=== PATIENT | female | born 1960 ===

== ENCOUNTER 2018-03-23 16:03 | Emergency (ER) | payer SELFPAY ==
[2018-03-23 16:04] VITALS: BMI 34.7
[2018-03-23 17:40] LABS: BASO % 0.4 % (0.0-2.0); EOS % 0.5 % (0.0-4.0); HEMOGLOBIN 10.5 g/dL (11.0-16.0); LYMPH # 1.2 K/uL (1.0-4.3); MEAN CELL VOLUME 95.2 fL (81.0-99.0); MEAN CORPUSCULAR HEMOGLOBIN 31.9 pg (27.0-31.0); MEAN CORPUSCULAR HGB CONC 33.5 g/dL (33.0-37.0); MEAN PLATELET VOLUME 9.4 fL (7.2-11.7); MONO # 0.4 K/uL (0.0-0.8); MONO % 11.4 % (0.0-10.0); NEUT # 1.9 K/uL (1.8-7.0); NEUT % 53.7 % (50.0-75.0); NRBC % 0.1 % (0.0-2.0); RBC 3.28 Mil/uL (3.80-5.20); RED CELL DISTRIBUTION WIDTH 13.2 % (11.5-14.5); WHITE BLOOD COUNT 3.6 K/uL (4.8-10.8)
--- NOTE | 2018-03-23 17:46 | RAD ---
Date of service: 03/23/2018 PROCEDURE: CHEST RADIOGRAPH, 1 VIEW HISTORY: chest pain COMPARISON: None available. FINDINGS: LUNGS: Clear. PLEURA: No pneumothorax or pleural fluid seen. CARDIOVASCULAR: No radiographic findings to suggest acute or significant cardiovascular disease. Position/ configuration of pacemaker device: Satisfactory. Venous access catheter in satisfactory position. OSSEOUS STRUCTURES: No significant abnormalities. VISUALIZED UPPER ABDOMEN: Normal. OTHER FINDINGS: None. IMPRESSION: No active pulmonary disease.
[2018-03-23 18:04] LABS: SQUAMOUS EPITHIAL 1 /hpf (0-5); URINE BILIRUBIN NEGATIVE (NEGATIVE); URINE BLOOD NEGATIVE (NEGATIVE); URINE CLARITY Clear (Clear); URINE COLOR Yellow (YELLOW); URINE GLUCOSE (UA) NORMAL (Normal); URINE LEUKOCYTE ESTERASE NEG Leu/uL (Negative); URINE PROTEIN NEGATIVE (NEGATIVE); URINE UROBILINOGEN NORMAL mg/dL (0.2-1.0)
[2018-03-23 18:08] LABS: ALB/GLOB RATIO 1.3 (1.0-2.1); ALBUMIN 3.6 g/dL (3.5-5.0); ALT/SGPT 29 U/L (9-52); AST/SGOT 31 U/L (14-36); BLOOD UREA NITROGEN 19 mg/dL (7-17); CALCIUM 8.6 mg/dl (8.6-10.4); GFR NON-AFRICAN AMERICAN > 60
[2018-03-23 18:39] VITALS: TEMP 98.8
--- NOTE | 2018-03-23 18:40 | CT ---
Date of service: 03/23/2018 PROCEDURE: CT HEAD WITHOUT CONTRAST. HISTORY: r/o ICH - h/o falls and MS COMPARISON: None available. TECHNIQUE: Axial computed tomography images were obtained through the head/brain without intravenous contrast. Coronal and sagittal reconstructed images. Radiation dose: Total exam DLP = 836.05 mGy-cm. This CT exam was performed using one or more of the following dose reduction techniques: Automated exposure control, adjustment of the mA and/or kV according to patient size, and/or use of iterative reconstruction technique. FINDINGS: HEMORRHAGE: No intracranial hemorrhage. BRAIN: No mass effect or edema. Cortical and cerebellar atrophy, periventricular small vessel disease. Additional lacune or infarcts identified right thalamus. Punctate foci of encephalomalacia adjacent to the sylvian fissure on the left and internal capsule on the right. VENTRICLES: Unremarkable. No hydrocephalus. CALVARIUM: Unremarkable. PARANASAL SINUSES: Unremarkable as visualized. No significant inflammatory changes. MASTOID AIR CELLS: Unremarkable as visualized. No inflammatory changes. OTHER FINDINGS: None. IMPRESSION: No acute intracranial abnormalities. No significant findings to account for the clinical presentation.
[2018-03-23 20:18] VITALS: BP 132/56; PULSE 85; RESP 16; O2SAT 97
--- NOTE | 2018-03-23 21:45 | C.PDOC ---
History Of Present Illness 57-year-old female, presents to the emergency department with complaints of fall today and two days ago. Patient has a hx of multiple sclerosis and lower extremity neuropathy. She denies any chest pain, shortness of breath, dizziness , or any other associated symptoms. Patient denies any SI/HI Time Seen by Provider: 03/23/18 16:33 Chief Complaint (Nursing): Weakness/Neurological Deficit History Per: Patient History/Exam Limitations: no limitations Past Medical History Reviewed: Historical Data, Nursing Documentation, Vital Signs Vital Signs: Last Vital Signs Temp 98.8 F 03/23/18 18:38 Pulse 85 03/23/18 20:16 Resp 16 03/23/18 20:16 BP 132/56 L 03/23/18 20:16 Pulse Ox 97 03/23/18 21:45 - Medical History PMH: Anemia, Anxiety, Arthritis, Back Problems, Bipolar Disorder, Cardia Arrhythmia, Depression, Fibromyalgia, Fractures (L RIB), HTN, Hypercholesterolemia, Kidney Stones, Migraine, Multiple Sclerosis Surgical History: Pacemaker - [facility] Procedures BATHING/SHOWERING TECHNIQUES TREATMENT (01/31/18) DRESSING TECHNIQUES TREATMENT (01/31/18) GAIT TRAINING/AMBULAT TREATMENT USING ASSIST EQUIPMENT (01/31/18) GROOMING/PERSONAL HYGIENE TREATMENT (01/31/18) HOME MANAGEMENT TREATMENT (01/31/18) INJECT/INFUSE NEC (02/14/14) THERAPEUTIC EXERCISE TREATMENT OF MUSCULOSK WHOLE (01/31/18) Family History: States: No Known Family Hx - Social History Hx Alcohol Use: No Hx Substance Use: No - Immunization History Hx Tetanus Toxoid Vaccination: No Physical Exam - Physical Exam Appears: Non-toxic, No Acute Distress Skin: Normal Color, Warm, Dry, No Rash Head: Atraumatic Eye(s): bilateral: Normal Inspection Nose: Normal Oral Mucosa: Moist Lips: Normal Appearing Neck: Normal ROM Chest: Symmetrical Cardiovascular: Rhythm Regular, No Murmur Respiratory: Normal Breath Sounds, No Accessory Muscle Use Gastrointestinal/Abdominal: Soft, No Tenderness Extremity: Normal ROM, No Deformity Neurological/Psych: Oriented x3, Normal Speech ED Course And Treatment - Laboratory Results Result Diagrams: 03/23/18 17:35 03/23/18 17:35 O2 Sat by Pulse Oximetry: 97 Pulse Ox Interpretation: Normal (RA) Disposition - Disposition Referrals: [facility] [Outside] at [facility] [Outside] Disposition: HOME/ ROUTINE Disposition Time: 19:10 Condition: GOOD Additional Instructions: IBRAHIMA TUCKER, thank you for letting us take care of you today. The emergency medical care you received today was directed at your acute symptoms. If you were prescribed any medication, please fill it and take as directed. It may take several days for your symptoms to resolve. Return to the Emergency Department if your symptoms worsen, do not improve, or if you have any other problems. Please contact your doctor or call one of the physicians/clinics you have been referred to that are listed on the Patient Visit Information form that is included in your discharge packet. Bring any paperwork you were given at discharge with you along with any medications you are taking to your follow up visit. Our treatment cannot replace ongoing medical care by a primary care provider outside of the emergency department. Thank you for allowing the [facility] team to be part of your care today. Call the [facility] service for further information for pain management and outpatient psychiatric care. Prescriptions: Ibuprofen [Motrin Tab] 800 mg PO Q6 PRN #20 tab PRN Reason: Pain, Moderate (4-7) Instructions: Chronic Pain (DC) Forms: [employer] (British) - Clinical Impression Clinical Impression: Anxiety, Multiple sclerosis - Scribe Statement The provider has reviewed the documentation as recorded by the Scribe (Maryanne Horan) Provider Attestation: All medical record entries made by the Scribe were at my direction and personally dictated by me. I have reviewed the chart and agree that the record accurately reflects my personal performance of the history, physical exam, medical decision making, and the department course for this patient. I have also personally directed, reviewed, and agree with the discharge instructions and disposition.
--- NOTE | 2018-03-28 14:25 | CARD ---
APPROVED REPORT Date of service: 03/23/2018 EKG Measurement Heart [id number] <Conclusion> Atrial-paced rhythm Nonspecific T wave abnormality Abnormal ECG
== END 2018-03-23 20:20 | disposition home or self-care (01) ==
LOC: C.ER 16:03
DX: F41.9 Anxiety disorder, unspecified (principal); G35 Multiple sclerosis

== ENCOUNTER 2018-09-13 19:02 | Inpatient (IN) | payer MEDICARE, OTHER ==
[2018-09-13 19:03] VITALS: BMI 36.3
--- NOTE | 2018-09-13 19:51 | C.PDOC ---
History Of Present Illness 57 year old female presents with anterior chest pain intermittently for the past 3 days. Patient has Hx of cardiac problem with pace maker and HTN. She now reports some SOB, nausea, and vomiting. Denies fever or chills. Chief Complaint (Nursing): Chest Pain History Per: Patient History/Exam Limitations: no limitations Onset/Duration Of Symptoms: Days, Intermittent Episodes Current Symptoms Are (Timing): Still Present Associated Symptoms: Nausea, Dyspnea, Other (Vomiting) Modifying Factors: None Exacerbating Factors: None Alleviating Factors: None Recent travel outside of the [place]: No Past Medical History Reviewed: Historical Data, Nursing Documentation, Vital Signs Vital Signs: Last Vital Signs Temp 100.2 F H 09/13/18 19:16 Pulse 66 09/13/18 19:16 Resp 16 09/13/18 19:16 BP 121/80 09/13/18 19:16 Pulse Ox 100 09/13/18 19:16 - Medical History PMH: Anemia, Anxiety, Arthritis, Asthma, Back Problems, Bipolar Disorder, Cardia Arrhythmia, CHF, Depression, Fibromyalgia, Fractures (L RIB), HTN, Hypercholest erolemia, Kidney Stones, Migraine, Multiple Sclerosis, Osteoporosis, Chronic Kidney Disease Denies: Diabetes, Hepatitis, HIV, Seizures, Sexually Transmitted Disease Surgical History: Cholecystectomy, Pacemaker - [facility] Procedures BATHING/SHOWERING TECHNIQUES TREATMENT (01/31/18) DRESSING TECHNIQUES TREATMENT (01/31/18) GAIT TRAINING/AMBULAT TREATMENT USING ASSIST EQUIPMENT (01/31/18) GROOMING/PERSONAL HYGIENE TREATMENT (01/31/18) HOME MANAGEMENT TREATMENT (01/31/18) INJECT/INFUSE NEC (02/14/14) THERAPEUTIC EXERCISE TREATMENT OF MUSCULOSK WHOLE (01/31/18) Family History: States: Unknown Family Hx - Social History Hx Alcohol Use: No Hx Substance Use: No (see HPI) - Immunization History Hx Tetanus Toxoid Vaccination: No Review Of Systems Constitutional: Negative for: Fever, Chills Cardiovascular: Positive for: Chest Pain Respiratory: Positive for: Shortness of Breath Gastrointestinal: Positive for: Nausea, Vomiting Musculoskeletal: Negative for: Back Pain Skin: Negative for: Rash Neurological: Negative for: Weakness, Numbness Physical Exam - Physical Exam Appears: Non-toxic, No Acute Distress Skin: Normal Color, Warm, Dry Head: Atraumatic, Normacephalic Eye(s): bilateral: Normal Inspection Oral Mucosa: Moist Neck: Normal, Supple Chest: Symmetrical, No Tenderness Cardiovascular: Rhythm Regular Respiratory: Normal Breath Sounds, No Rales, No Rhonchi, No Wheezing Gastrointestinal/Abdominal: Soft, No Tenderness Extremity: Other (Bilateral lower extremity 2+ edema) Pulses: Left Dorsalis Pedis: Normal, Right Dorsalis Pedis: Normal Neurological/Psych: Oriented x3, Normal Speech ED Course And Treatment - Laboratory Results Result Diagrams: 09/13/18 19:59 09/13/18 19:59 ECG: Interpreted By Me, Viewed By Me ECG Rhythm: Sinus Rhythm, Nonspecific Changes ECG Interpretation: No Acute Changes, Abnormal Interpretation Of ECG: NSR, non-spc T changes, no acute changes, abnormal tracings. Rate From EC O2 Sat by Pulse Oximetry: 100 (Room air) Pulse Ox Interpretation: Normal Progress Note: Blood work, EKG, and CXR ordered. IV fluids, toradol, zofran administered, nitro-bid applied. Disposition Discussed With Dr.: Harris Mendez Doctor Will See Patient In The: Hospital Counseled Patient/Family Regarding: Diagnosis - Disposition Disposition: HOSPITALIZED Disposition Time: 00:39 Condition: STABLE Forms: [facility] (Salvadorean) - POA Present On Arrival: None - Clinical Impression Clinical Impression: Chest pain - Scribe Statement The provider has reviewed the documentation as recorded by the Scriblucia Benton All medical record entries made by the Scribe were at my direction and personally dictated by me. I have reviewed the chart and agree that the record accurately reflects my personal performance of the history, physical exam, medical decision making, and the department course for this patient. I have also personally directed, reviewed, and agree with the discharge instructions and disposition.
[2018-09-13] MEDS ORDERED: Nitroglycerin 2% Ointment Foilpak UD TOP STA (19:54)
[2018-09-13 20:05] LABS: BASO % 0.5 % (0.0-2.0); EOS % 0.9 % (0.0-4.0); HEMOGLOBIN 9.7 g/dL (11.0-16.0); LYMPH # 1.3 K/uL (1.0-4.3); LYMPH % 34.6 % (20.0-40.0); MEAN CELL VOLUME 91.7 fL (81.0-99.0); MEAN CORPUSCULAR HGB CONC 31.6 g/dL (33.0-37.0); MEAN PLATELET VOLUME 9.4 fL (7.2-11.7); MONO # 0.3 K/uL (0.0-0.8); MONO % 7.1 % (0.0-10.0); NEUT # 2.2 K/uL (1.8-7.0); NEUT % 56.9 % (50.0-75.0); RBC 3.34 Mil/uL (3.80-5.20); RED CELL DISTRIBUTION WIDTH 13.1 % (11.5-14.5); WHITE BLOOD COUNT 3.9 K/uL (4.8-10.8)
[2018-09-13] MEDS ORDERED: Nitroglycerin 2% Ointment Foilpak UD TOP ONE (20:12)
[2018-09-13 20:23] LABS: ALB/GLOB RATIO 1.4 (1.0-2.1); ALBUMIN 3.8 g/dL (3.5-5.0); ALT/SGPT 43 U/L (9-52); AST/SGOT 31 U/L (14-36); BLOOD UREA NITROGEN 20 mg/dL (7-17); CALCIUM 8.5 mg/dl (8.6-10.4); GFR NON-AFRICAN AMERICAN > 60
[2018-09-13 20:33] LABS: INR 1.3; PROTHROMBIN TIME 14.5 SECONDS (9.7-12.2)
[2018-09-13 20:36] LABS: B-TYPE NATRIURETIC PEPTIDE 138 pg/mL (0-900)
[2018-09-13] MEDS ORDERED: Iodixanol 320 MG/ML 100 ML BOTTLE IV ONE (22:27)
[2018-09-14] MEDS ORDERED: Aspirin 325 mg EC Tablets PO STA (01:50)
[2018-09-14] MEDS ORDERED: Ergocalciferol 50,000 Intl Units Cap PO SCH ×2 (02:00→10:30)
[2018-09-14] MEDS ORDERED: Home Med 1 UNIT (Atorvastatin [Lipitor] 40 MG) PO SCH (02:00)
[2018-09-14] MEDS: Nitroglycerin 2% Ointment Foilpak UD TOP SCH ×3 (06:50→18:30)
[2018-09-14] MEDS: Pantoprazole 40 mg EC Tab PO SCH (06:50)
[2018-09-14 07:19] LABS: CK-MB 0.62 ng/mL (0.0-3.38)
[2018-09-14] MEDS ORDERED: MULTIVITAMIN THERAPEUTIC PO SCH (08:00)
[2018-09-14] MEDS: Enoxaparin 30 mg Syringe SC SCH (09:03)
[2018-09-14] MEDS: Lidocaine 5% Patch TD SCH (09:06)
[2018-09-14] MEDS ORDERED: Lidocaine 5% Patch TD SCH (10:00)
--- NOTE | 2018-09-14 10:12 | RAD ---
Date of service: 09/13/2018 PROCEDURE: CHEST RADIOGRAPH, 1 VIEW HISTORY: chest pain COMPARISON: 03/23/2018. FINDINGS: Right-sided MediPort terminates at the cavoatrial junction LUNGS: The lungs are well inflated and clear. PLEURA: No pneumothorax or pleural effusion. CARDIOVASCULAR: The heart is normal in size. There is stable position of left-sided dual lead permanent pacing device. There are aortic atherosclerotic calcifications present. OSSEOUS STRUCTURES: Within normal limits for the patient's age. VISUALIZED UPPER ABDOMEN: Normal. OTHER FINDINGS: None. IMPRESSION: No active pulmonary disease.
--- NOTE | 2018-09-14 11:06 | CP.PCM.HP ---
History of Present Illness - History of Present Illness History of Present Illness: 57 year old female presents with anterior chest pain intermittently for the past 3 days. Patient has Hx of cardiac problem with pace maker and HTN. PT. HAS BEEN ADMITTED MULTIPLE TIMES FOR CP WITH NEG CARDIAC W/U ALSO HAS H/O MS WITH EXACERBATION H/O HTN/DM/HYPERCHOLESTEROL Present on Admission - Present on Admission Any Indicators Present on Admission: No Review of Systems - Review of Systems All systems: reviewed and no additional remarkable complaints except (CP) Past Patient History - Infectious Disease Hx of Infectious Diseases: None - Tetanus Immunizations Tetanus Immunization: Unknown - Past Social History Smoking Status: Former Smoker - CARDIAC Hx Cardia Arrhythmia: Yes Hx Congestive Heart Failure: Yes Hx Hypercholesterolemia: Yes Hx Hypertension: Yes Hx Pacemaker: Yes - PULMONARY Hx Asthma: Yes - NEUROLOGICAL Hx Migraine: Yes Hx Multiple Sclerosis: Yes Hx Seizures: No - HEENT Hx HEENT Problems: No - RENAL Hx Chronic Kidney Disease: Yes Hx Kidney Stones: Yes - ENDOCRINE/METABOLIC Hx Endocrine Disorders: Yes Hx Diabetes Mellitus Type 2: Yes - HEMATOLOGICAL/ONCOLOGICAL Hx Anemia: Yes Hx Human Immunodeficiency Virus (HIV): No - INTEGUMENTARY Hx Dermatological Problems: No - MUSCULOSKELETAL/RHEUMATOLOGICAL Hx Arthritis: Yes Hx Fractures: Yes (L RIB) Hx Osteoporosis: Yes - GASTROINTESTINAL Hx Gastrointestinal Disorders: Yes Hx Colitis: Yes - GENITOURINARY/GYNECOLOGICAL Hx Sexually Transmitted Disorders: No - PSYCHIATRIC Hx Anxiety: Yes Hx Bipolar Disorder: Yes Hx Depression: Yes Hx Substance Use: No (see HPI) - SURGICAL HISTORY Hx Cholecystectomy: Yes - ANESTHESIA Hx Anesthesia: Yes Hx Anesthesia Reactions: No Hx Malignant Hyperthermia: No Meds Allergies/Adverse Reactions: Allergies Allergy/AdvReac Type Severity Reaction Status Date / Time levofloxacin [From Levaquin] Allergy RASH Verified 09/13/18 19:28 Physical Exam - Head Exam Head Exam: ATRAUMATIC, NORMAL INSPECTION, NORMOCEPHALIC - Eye Exam Eye Exam: EOMI, Normal appearance, PERRL - ENT Exam ENT Exam: Mucous Membranes Moist, Normal Exam - Neck Exam Neck exam: Positive for: Normal Inspection - Respiratory Exam Respiratory Exam: Clear to Auscultation Bilateral, NORMAL BREATHING PATTERN - Cardiovascular Exam Cardiovascular Exam: REGULAR RHYTHM - GI/Abdominal Exam GI & Abdominal Exam: Normal Bowel Sounds, Soft. absent: Tenderness - Extremities Exam Extremities exam: Positive for: normal inspection - Back Exam Back exam: NORMAL INSPECTION - Neurological Exam Neurological exam: Alert, CN II-XII Intact, Normal Gait, Oriented x3, Reflexes Normal Results - Vital Signs Recent Vital Signs: Last Vital Signs Temp 98.1 F 09/14/18 07:00 Pulse 60 09/14/18 08:18 Resp 18 09/14/18 07:00 BP 101/66 09/14/18 07:00 Pulse Ox 99 09/14/18 07:15 - Labs Result Diagrams: 09/13/18 19:59 09/13/18 19:59 Labs: Laboratory Results - last 24 hr 09/13/18 09/13/18 09/13/18 19:59 19:59 19:59 WBC 3.9 L RBC 3.34 L Hgb 9.7 L Hct 30.6 L MCV 91.7 D MCH 29.0 MCHC 31.6 L RDW 13.1 Plt Count 146 MPV 9.4 Neut % (Auto) 56.9 Lymph % (Auto) 34.6 [place] % (Auto) 7.1 Eos % (Auto) 0.9 Baso % (Auto) 0.5 Neut # (Auto) 2.2 Lymph # (Auto) 1.3 [place] # (Auto) 0.3 Eos # (Auto) 0.0 Baso # (Auto) 0.0 PT 14.5 H INR 1.3 APTT 32 D-Dimer, Quantitative 264 H Sodium 139 Potassium 4.1 Chloride 108 H Carbon Dioxide 24 Anion Gap 11 BUN 20 H Creatinine 0.8 Est GFR ( Amer) > 60 Est GFR (Non-Af Amer) > 60 Random Glucose 89 Calcium 8.5 L Total Bilirubin 0.7 AST 31 ALT 43 Alkaline Phosphatase 141 H D Total Creatine Kinase CK-MB (Mass) Troponin I < 0.0120 NT-Pro-B Natriuret Pep 138 Total Protein 6.5 Albumin 3.8 Globulin 2.7 Albumin/Globulin Ratio 1.4 Blood Type Antibody Screen 09/13/18 09/14/18 19:59 06:48 WBC RBC Hgb Hct MCV MCH MCHC RDW Plt Count MPV Neut % (Auto) Lymph % (Auto) [place] % (Auto) Eos % (Auto) Baso % (Auto) Neut # (Auto) Lymph # (Auto) [place] # (Auto) Eos # (Auto) Baso # (Auto) PT INR APTT D-Dimer, Quantitative Sodium Potassium Chloride Carbon Dioxide Anion Gap BUN Creatinine Est GFR ( Amer) Est GFR (Non-Af Amer) Random Glucose Calcium Total Bilirubin AST ALT Alkaline Phosphatase Total Creatine Kinase 53 CK-MB (Mass) 0.62 Troponin I < 0.0120 NT-Pro-B Natriuret Pep Total Protein Albumin Globulin Albumin/Globulin Ratio Blood Type A POSITIVE Antibody Screen Negative Assessment & Plan (1) Chest pain Status: Acute Comment: PRELIMINARY CARDIAC W/U (2) Multiple sclerosis Status: Acute (3) Panic disorder Status: Chronic Priority: Medium
[2018-09-14] MEDS: Fluticasone Nasal 50 mcg/Spray NS SCH (11:52)
--- NOTE | 2018-09-14 12:39 | CT ---
Date of service: 09/13/2018 CTA chest PE protocol Indication: chest pain/ elevated D-dimer Technique: Contiguous axial images were obtained through the chest with intravenous contrast enhancement. Sagittal and coronal reconstructions were generated and reviewed. This CT exam was performed using 1 or more of the following dose reduction techniques: Automated exposure control, adjustment of the MAA and/or kV according to patient size, and/or use of iterative reconstruction technique. IV contrast: 100 mL Visipaque 320 IV Radiation dose (DLP): 604.38 MGy-cm. Comparison: Chest x-ray performed 09/13/18 Findings: Visualized portions of the inferior thyroid gland appear unremarkable. The mediastinal and hilar vascular structures appear within normal limits. The heart appears within normal limits of size. Dense coronary artery calcifications. Atherosclerotic calcifications of the aorta. No large central or segmental pulmonary embolus evident. Bibasilar atelectasis. No focal consolidation. No pleural effusion. No pneumothorax. Limited visualized portions of the upper abdomen: Evidence of prior gastric surgery. Partially imaged hepatomegaly. Hepatic steatosis. Gallbladder is not visualized presumably due to cholecystectomy. Please note cholecystectomy clips are not seen. Common bile duct appears dilated. Pancreatic atrophy. Osseous demineralization. Degenerative changes. Impression: No large central or segmental pulmonary embolus identified. Bibasilar atelectasis. Limited visualized portions of the upper abdomen: Evidence of prior gastric surgery. Partially imaged hepatomegaly. Hepatic steatosis. Gallbladder is not visualized presumably due to cholecystectomy. Please note cholecystectomy clips are not seen. Common bile duct appears dilated. Pancreatic atrophy. Preliminary impression was provided by [employer].
[2018-09-15] MEDS: Nitroglycerin 2% Ointment Foilpak UD TOP SCH ×5 (00:20→23:43)
[2018-09-15] MEDS: Pantoprazole 40 mg EC Tab PO SCH (06:30)
--- NOTE | 2018-09-15 08:07 | CARD ---
APPROVED REPORT Date of service: 09/13/2018 EKG Measurement Heart [id number] [id number] <Conclusion> Normal sinus rhythm with sinus arrhythmia Nonspecific T wave abnormality Abnormal ECG
[2018-09-15] MEDS: Fluticasone Nasal 50 mcg/Spray NS SCH (09:09)
--- NOTE | 2018-09-15 09:09 | CARD ---
APPROVED REPORT Date of service: 09/14/2018 EXAM: Two-dimensional and M-mode echocardiogram with Doppler and color Doppler. Other Information Quality : GoodRhythm : INDICATION Chest Pain Congenital Heart Disease RISK FACTORS Hypertension Hyperlipidemia 2D DIMENSIONS IVSd0.7 (0.7-1.1cm)LVDd4.4 (3.9-5.9cm) PWd1.0 (0.7-1.1cm)LA Hatfnc26 (18-58mL) LVDs3.0 (2.5-4.0cm)FS (%) 31.6 % LVEF (%)59.9 (>50%)LVEF (Palm's)69.87 % IVC0.00 cm M-Mode DIMENSIONS RVDd1.87 (2.1-3.2cm)Left Atrium (MM)4.10 (2.5-4.0cm) IVSd1.08 (0.7-1.1cm)Aortic Root2.96 (2.2-3.7cm) LVDd4.37 (4.0-5.6cm)Aortic Cusp Exc.1.90 (1.5-2.0cm) PWd1.28 (0.7-1.1cm)FS (%) 25 % LVDs3.26 (2.0-3.8cm)TAPSE21.87 cm LVEF (%)65 (>50%) Mitral Valve MV E Ktlnvcnz45.8cm/sMV A Mgyurbzm34.4cm/sE/A ratio1.3 TDI Lateral E' Peak V14.06cm/sMedial E' Peak V8.29cm/sE/Lateral E'6.0 E/Medial E'10.1 Tricuspid Valve TR Peak Oruxzhag089gh/sTR Peak Gr.32wjTqXAGY50hrTh <Conclusion> Left ventricle: thickness: normal; size: normal; overall ejection fraction: 65%: diastolic filling pressures: normal Mitral valve: annulus: normal: leaflets: normal: excursion: normal; no significant trans-mitral gradient: mild incompetence: left atrium: dilated Aortic valve: leaflets: normal: excursion: normal; no significant trans-aortic gradient: No significant incompetence: aortic root: normal Right sided Structures: pacing lead; Pulmonary valve: normal; no significant incompetence; Tricuspid valve: normal; mild incompetence: Intra-cardiac hemodynamics: pulmonary systolic pressures: 31 mmHg; central venous pressures: normal No pericardial effusion
[2018-09-15] MEDS: Multiple Vitamins Tab PO SCH (09:11)
[2018-09-15] MEDS: Lidocaine 5% Patch TD SCH (09:11)
[2018-09-15] MEDS: Enoxaparin 30 mg Syringe SC SCH (09:12)
--- NOTE | 2018-09-15 13:02 | CP.PCM.PN ---
Subjective - Date & Time of Evaluation Date of Evaluation: 09/15/18 Time of Evaluation: 13:01 - Subjective Subjective: ATYPICAL CP ECHO NORMAL TNI 2 SETS NEG CONT MONITOR Objective - Vital Signs/Intake and Output Vital Signs (last 24 hours): Temp Pulse Resp BP Pulse Ox 98.1 F 61 20 118/72 98 09/15/18 08:47 09/15/18 11:33 09/15/18 08:47 09/15/18 09:11 09/15/18 08:47 - Medications Medications: Current Medications Aspirin (Ecotrin) 81 mg PO DAILY [facility] Last Admin: 09/15/18 09:13 Dose: 81 mg Clonazepam (Klonopin) 1 mg PO BID [facility] Last Admin: 09/15/18 09:15 Dose: 1 mg Diphenhydramine HCl (Benadryl) 25 mg PO ONCE PRN PRN Reason: Insomnia Enoxaparin Sodium (Lovenox) 30 mg SC DAILY [facility] Last Admin: 09/15/18 09:12 Dose: 30 mg Ergocalciferol (Drisdol 50,000 Intl Units Cap) 1 cap PO Q7D [facility] Last Admin: 09/14/18 10:57 Dose: 1 cap Fluticasone Propionate (Flonase) 1 spr NS DAILY [facility] Last Admin: 09/15/18 09:09 Dose: 1 spr Folic Acid (Folic Acid) 1 mg PO DAILY [facility] Last Admin: 09/15/18 09:13 Dose: 1 mg Lidocaine (Lidoderm) 1 ea TD DAILY [facility] Last Admin: 09/15/18 09:11 Dose: 1 ea Metoprolol Tartrate (Lopressor) 25 mg PO BID [facility] Last Admin: 09/15/18 09:11 Dose: 25 mg Multivitamins (Hexavitamin) 1 tab PO DAILY [facility] Last Admin: 09/15/18 09:11 Dose: 1 tab Nitroglycerin (Nitro-Bid 2% Oint) 1 ea TOP Q6 [facility] Last Admin: 09/15/18 11:46 Dose: Not Given Ondansetron HCl (Zofran Inj) 4 mg IVP Q8 PRN PRN Reason: Nausea/Vomiting Last Admin: 09/15/18 11:07 Dose: 4 mg Pantoprazole Sodium (Protonix Ec Tab) 40 mg PO 0600 [facility] Last Admin: 09/15/18 06:30 Dose: 40 mg Quetiapine Fumarate (Seroquel) 50 mg PO HS [facility] Last Admin: 09/14/18 22:41 Dose: 50 mg Rosuvastatin Calcium (Crestor) 20 mg PO [facility] Last Admin: 09/14/18 22:41 Dose: 20 mg Venlafaxine HCl (Effexor) 37.5 mg PO DAILY [facility] Last Admin: 09/15/18 09:12 Dose: 37.5 mg Venlafaxine HCl (Effexor) 150 mg PO DAILY [facility] Last Admin: 09/15/18 09:13 Dose: 150 mg - Labs Labs: 09/13/18 19:59 09/13/18 19:59 PT 14.5 SECONDS (9.7-12.2) H 09/13/18 19:59 INR 1.3 09/13/18 19:59 APTT 32 SECONDS (21-34) 09/13/18 19:59 Assessment and Plan (1) Chest pain Status: Acute (2) Multiple sclerosis Status: Acute (3) Panic disorder Status: Chronic
--- NOTE | 2018-09-15 16:46 | CARD ---
APPROVED REPORT Date of service: 09/14/2018 EKG Measurement Heart [id number] [place] 158P63 [id number] <Conclusion> Atrial-paced rhythm Low voltage QRS Prolonged QT Abnormal ECG
[2018-09-16] MEDS: Nitroglycerin 2% Ointment Foilpak UD TOP SCH ×4 (05:26→23:47)
[2018-09-16] MEDS: Pantoprazole 40 mg EC Tab PO SCH (05:55)
[2018-09-16 08:47] LABS: BASO % 0.4 % (0.0-2.0); EOS # 0.1 K/uL (0.0-0.7); EOS % 2.8 % (0.0-4.0); HEMOGLOBIN 9.8 g/dL (11.0-16.0); LYMPH # 0.8 K/uL (1.0-4.3); LYMPH % 44.5 % (20.0-40.0); MEAN CELL VOLUME 92.1 fL (81.0-99.0); MEAN CORPUSCULAR HEMOGLOBIN 29.3 pg (27.0-31.0); MEAN CORPUSCULAR HGB CONC 31.9 g/dL (33.0-37.0); MONO # 0.2 K/uL (0.0-0.8); MONO % 9.3 % (0.0-10.0); NEUT # 0.8 K/uL (1.8-7.0); NRBC % 0.2 % (0.0-2.0); RBC 3.34 Mil/uL (3.80-5.20); RED CELL DISTRIBUTION WIDTH 12.8 % (11.5-14.5)
[2018-09-16 08:52] LABS: ALB/GLOB RATIO 1.3 (1.0-2.1); ALBUMIN 3.6 g/dL (3.5-5.0); ALT/SGPT 30 U/L (9-52); AST/SGOT 26 U/L (14-36); BLOOD UREA NITROGEN 12 mg/dL (7-17); CALCIUM 8.5 mg/dl (8.6-10.4); GFR NON-AFRICAN AMERICAN > 60
[2018-09-16 08:57] LABS: WHITE BLOOD COUNT 1.9 K/uL (4.8-10.8)
[2018-09-16] MEDS: Fluticasone Nasal 50 mcg/Spray NS SCH (09:22)
[2018-09-16] MEDS: Lidocaine 5% Patch TD SCH (09:22)
[2018-09-16] MEDS: Enoxaparin 30 mg Syringe SC SCH (09:23)
[2018-09-16] MEDS: Multiple Vitamins Tab PO SCH (09:24)
[2018-09-16] MEDS: Venlafaxine 150 mg ER Cap PO SCH (11:27)
[2018-09-16] MEDS: Venlafaxine 37.5 mg ER Cap PO SCH (11:29)
--- NOTE | 2018-09-16 13:17 | CP.PCM.PN ---
Subjective - Date & Time of Evaluation Date of Evaluation: 09/16/18 Time of Evaluation: 13:16 - Subjective Subjective: WBC IS DOWN TO 1.9K URINE IS POS NO CP ID/HEM EVAL Objective - Vital Signs/Intake and Output Vital Signs (last 24 hours): Temp Pulse Resp BP Pulse Ox 98.4 F 60 20 120/64 95 09/16/18 08:30 09/16/18 12:12 09/16/18 08:30 09/16/18 09:25 09/16/18 08:30 Intake and Output: 09/16/18 09/16/18 11:59 23:59 Intake Total Balance - Medications Medications: Current Medications Acetaminophen (Tylenol 325mg Tab) 650 mg PO Q6 PRN PRN Reason: pain Last Admin: 09/15/18 19:21 Dose: 650 mg Aspirin (Ecotrin) 81 mg PO DAILY [facility] Last Admin: 09/16/18 09:24 Dose: 81 mg Clonazepam (Klonopin) 1 mg PO BID [facility] Last Admin: 09/16/18 09:23 Dose: 1 mg Diphenhydramine HCl (Benadryl) 25 mg PO ONCE PRN PRN Reason: Insomnia Enoxaparin Sodium (Lovenox) 30 mg SC DAILY [facility] Last Admin: 09/16/18 09:23 Dose: 30 mg Ergocalciferol (Drisdol 50,000 Intl Units Cap) 1 cap PO Q7D [facility] Last Admin: 09/14/18 10:57 Dose: 1 cap Fluticasone Propionate (Flonase) 1 spr NS DAILY [facility] Last Admin: 09/16/18 09:22 Dose: 1 spr Folic Acid (Folic Acid) 1 mg PO DAILY [facility] Last Admin: 09/16/18 09:24 Dose: 1 mg Lidocaine (Lidoderm) 1 ea TD DAILY [facility] Last Admin: 09/16/18 09:22 Dose: 1 ea Metoprolol Tartrate (Lopressor) 25 mg PO BID [facility] Last Admin: 09/16/18 09:25 Dose: 25 mg Multivitamins (Hexavitamin) 1 tab PO DAILY [facility] Last Admin: 09/16/18 09:24 Dose: 1 tab Nitroglycerin (Nitro-Bid 2% Oint) 1 ea TOP Q6 [facility] Last Admin: 09/16/18 12:53 Dose: Not Given Ondansetron HCl (Zofran Inj) 4 mg IVP Q8 PRN PRN Reason: Nausea/Vomiting Last Admin: 09/15/18 11:07 Dose: 4 mg Pantoprazole Sodium (Protonix Ec Tab) 40 mg PO 0600 [facility] Last Admin: 09/16/18 05:55 Dose: 40 mg Quetiapine Fumarate (Seroquel) 50 mg PO HS [facility] Last Admin: 09/15/18 21:40 Dose: 50 mg Rosuvastatin Calcium (Crestor) 20 mg PO HS [facility] Last Admin: 09/15/18 21:40 Dose: 20 mg Venlafaxine HCl (Effexor Xr) 150 mg PO DAILY [facility] Last Admin: 09/16/18 11:27 Dose: 150 mg Venlafaxine HCl (Effexor Xr) 37.5 mg PO DAILY [facility] Last Admin: 09/16/18 11:29 Dose: Not Given - Labs Labs: 09/16/18 08:27 09/16/18 08:27 PT 14.5 SECONDS (9.7-12.2) H 09/13/18 19:59 INR 1.3 09/13/18 19:59 APTT 32 SECONDS (21-34) 09/13/18 19:59 Assessment and Plan (1) Chest pain Status: Acute (2) Multiple sclerosis Status: Acute (3) Panic disorder Status: Chronic
[2018-09-16] MEDS ORDERED: Meropenem 1 GM in Sodium Chloride 0.9% 100 ML IVPB ONE (16:10)
--- NOTE | 2018-09-16 16:39 | CP.PCM.CON ---
History of Present Illness - History of Present Illness History of Present Illness: INFECTIOUS DISEASE CONSULT; HPI; 57-year-old female with history of CAD, hypertension, DM, gastric bypass, de pression, MS admitted with chest pains and pancytopenia. Patient states he recently moved from [place] to [place] as her daughters live here. Patient also has history of anemia which she developed after gastric bypass. Patient not compliant with her vitamins as was recommended with her gastric by pass. Patient states that she previously also had UTI with ESBL Escherichia coli. Infectious disease consult requested by PMD as urine cultures positive for gram- negative rods. Patient does complain of frequency and bilateral flank pains. Denies history of hematuria or kidney stones. Patient denies any abnormal bleeding or bruising at present.PATIENT DENIES ANY FEVER OR CHILLS. CXR ON ADMISSION RIGHT-SIDED mEDIpORT/NO ACTIVE DISEASE. ct CHEST ANGIOGRAM 09/13/18 - PE. pRIOR GASTRIC BYPASS/HEPATOMEGALY/HEPATIC STEATOSIS/CHOLECYSTECTOMY/CBD DILATED/PANCREATIC ATROPHY. Past medical history: CAD, HTN, DM, depression, MS Past surgical history: Gastric bypass 1993. Family history: Father had lung cancer (smoker). Social history: Denies tobacco, alcohol, and illicit drug use. Allergies: Levofloxacin Review of Systems - Constitutional Constitutional: Fatigue, Fever (SUBJECTIVE FEVERS), Weight Loss (AFTER BYPASS. sHE STATES SHE WAS ABOUT MORE THAN 400 POUNDS.) - EENT Eyes: absent: Photophobia Nose/Mouth/Throat: absent: Mouth Lesions - Cardiovascular Cardiovascular: Chest Pain, Leg Edema - Respiratory Respiratory: absent: Dyspnea, Hemoptysis - Gastrointestinal Gastrointestinal: absent: Abdominal Pain (BILATERAL FLANK PAINS.), Change in Bowel Habits, Diarrhea, Melena, Nausea, Odynophagia, Vomiting - Genitourinary Genitourinary: Change in Urinary Stream, Dysuria, Urinary Frequency, Freq UTI. absent: Hematuria, Hx Renal/Bladder Calculi, Hx /Renal Surgery - Neurological Neurological: absent: Headaches - Psychiatric Psychiatric: Depression - Hematologic/Lymphatic Hematologic: absent: Easy Bleeding, Easy Bruising Past Patient History - Infectious Disease Hx of Infectious Diseases: None - Tetanus Immunizations Tetanus Immunization: Unknown - Past Social History Smoking Status: Former Smoker - CARDIAC Hx Congestive Heart Failure: Yes Hx Hypercholesterolemia: Yes Hx Hypertension: Yes - PULMONARY Hx Asthma: Yes - NEUROLOGICAL Hx Migraine: Yes Hx Multiple Sclerosis: Yes Hx Seizures: No - HEENT Hx HEENT Problems: No - RENAL Hx Chronic Kidney Disease: Yes Hx Kidney Stones: Yes - ENDOCRINE/METABOLIC Hx Diabetes Mellitus Type 2: Yes - HEMATOLOGICAL/ONCOLOGICAL Hx Anemia: Yes Hx Human Immunodeficiency Virus (HIV): No - INTEGUMENTARY Hx Dermatological Problems: No - MUSCULOSKELETAL/RHEUMATOLOGICAL Hx Arthritis: Yes - GASTROINTESTINAL Hx Gastrointestinal Disorders: Yes Hx Colitis: Yes - GENITOURINARY/GYNECOLOGICAL Hx Sexually Transmitted Disorders: No - PSYCHIATRIC Hx Anxiety: Yes Hx Bipolar Disorder: Yes Hx Depression: Yes Hx Substance Use: No (see HPI) - SURGICAL HISTORY Hx Cholecystectomy: Yes - ANESTHESIA Hx Anesthesia: Yes Hx Anesthesia Reactions: No Hx Malignant Hyperthermia: No Meds Allergies/Adverse Reactions: Allergies Allergy/AdvReac Type Severity Reaction Status Date / Time levofloxacin [From Levaquin] Allergy RASH Verified 09/13/18 19:28 - Medications Medications: Current Medications Acetaminophen (Tylenol 325mg Tab) 650 mg PO Q6 PRN PRN Reason: pain Last Admin: 09/15/18 19:21 Dose: 650 mg Aspirin (Ecotrin) 81 mg PO DAILY [facility] Last Admin: 09/16/18 09:24 Dose: 81 mg Clonazepam (Klonopin) 1 mg PO BID [facility] Last Admin: 09/16/18 09:23 Dose: 1 mg Diphenhydramine HCl (Benadryl) 25 mg PO ONCE PRN PRN Reason: Insomnia Enoxaparin Sodium (Lovenox) 30 mg SC DAILY [facility] Last Admin: 09/16/18 09:23 Dose: 30 mg Ergocalciferol (Drisdol 50,000 Intl Units Cap) 1 cap PO Q7D [facility] Last Admin: 09/14/18 10:57 Dose: 1 cap Fluticasone Propionate (Flonase) 1 spr NS DAILY [facility] Last Admin: 09/16/18 09:22 Dose: 1 spr Folic Acid (Folic Acid) 1 mg PO DAILY [facility] Last Admin: 09/16/18 09:24 Dose: 1 mg Meropenem 1 gm/ Sodium (Chloride) 100 mls @ 100 mls/hr IVPB ONCE ONE; Protocol Stop: 09/16/18 17:09 Meropenem 500 mg/ Sodium (Chloride) 100 mls @ 100 mls/hr IVPB Q8H [facility]; Protocol Lidocaine (Lidoderm) 1 ea TD DAILY [facility] Last Admin: 09/16/18 09:22 Dose: 1 ea Metoprolol Tartrate (Lopressor) 25 mg PO BID [facility] Last Admin: 09/16/18 09:25 Dose: 25 mg Multivitamins (Hexavitamin) 1 tab PO DAILY [facility] Last Admin: 09/16/18 09:24 Dose: 1 tab Nitroglycerin (Nitro-Bid 2% Oint) 1 ea TOP Q6 [facility] Last Admin: 09/16/18 12:53 Dose: Not Given Ondansetron HCl (Zofran Inj) 4 mg IVP Q8 PRN PRN Reason: Nausea/Vomiting Last Admin: 09/15/18 11:07 Dose: 4 mg Pantoprazole Sodium (Protonix Ec Tab) 40 mg PO 0600 [facility] Last Admin: 09/16/18 05:55 Dose: 40 mg Quetiapine Fumarate (Seroquel) 50 mg PO HS [facility] Last Admin: 09/15/18 21:40 Dose: 50 mg Rosuvastatin Calcium (Crestor) 20 mg PO HS [facility] Last Admin: 09/15/18 21:40 Dose: 20 mg Venlafaxine HCl (Effexor Xr) 150 mg PO DAILY [facility] Last Admin: 09/16/18 11:27 Dose: 150 mg Venlafaxine HCl (Effexor Xr) 37.5 mg PO DAILY [facility] Last Admin: 09/16/18 11:29 Dose: Not Given Physical Exam - Constitutional Appears: No Acute Distress - Head Exam Head Exam: NORMAL INSPECTION - Eye Exam Eye Exam: EOMI, PERRL - ENT Exam ENT Exam: Normal Oropharynx - Neck Exam Neck exam: Positive for: Normal Inspection - Respiratory Exam Respiratory Exam: Clear to Auscultation Bilateral, NORMAL BREATHING PATTERN - Cardiovascular Exam Cardiovascular Exam: REGULAR RHYTHM, +S1, +S2 - GI/Abdominal Exam GI & Abdominal Exam: Normal Bowel Sounds, Soft. absent: Tenderness - Extremities Exam Extremities exam: Positive for: normal capillary refill (TATTOOS LOWER EXTREMITY.), pedal edema (1+), pedal pulses present. Negative for: calf tenderness - Back Exam Back exam: absent: CVA tenderness (L), CVA tenderness (R) - Neurological Exam Neurological exam: Alert, CN II-XII Intact - Psychiatric Exam Psychiatric exam: Normal Mood - Skin Skin Exam: Normal Color, Warm Results - Vital Signs Recent Vital Signs: Last Vital Signs Temp 98.7 F 09/16/18 15:00 Pulse 62 09/16/18 15:00 Resp 20 09/16/18 15:00 BP 145/87 09/16/18 15:00 Pulse Ox 96 09/16/18 15:00 - Labs Result Diagrams: 09/17/18 08:17 09/17/18 08:17 Labs: Laboratory Results - last 24 hr 09/15/18 09/16/18 09/16/18 21:42 08:27 08:27 WBC 1.9 L* D RBC 3.34 L Hgb 9.8 L Hct 30.7 L MCV 92.1 MCH 29.3 MCHC 31.9 L RDW 12.8 Plt Count 126 L D MPV 10.0 Neut % (Auto) 43.0 L Lymph % (Auto) 44.5 H [place] % (Auto) 9.3 Eos % (Auto) 2.8 Baso % (Auto) 0.4 Neut # (Auto) 0.8 L Lymph # (Auto) 0.8 L [place] # (Auto) 0.2 Eos # (Auto) 0.1 Baso # (Auto) 0.0 Differential Comment Sodium 136 Potassium 3.9 Chloride 102 Carbon Dioxide 29 Anion Gap 10 BUN 12 Creatinine 0.8 Est GFR ( Amer) > 60 Est GFR (Non-Af Amer) > 60 POC Glucose (mg/dL) 95 Random Glucose 84 Calcium 8.5 L Total Bilirubin 0.6 AST 26 ALT 30 Alkaline Phosphatase 133 H Total Protein 6.3 Albumin 3.6 Globulin 2.8 Albumin/Globulin Ratio 1.3 09/16/18 12:51 WBC RBC Hgb Hct MCV MCH MCHC RDW Plt Count MPV Neut % (Auto) Lymph % (Auto) [place] % (Auto) Eos % (Auto) Baso % (Auto) Neut # (Auto) Lymph # (Auto) [place] # (Auto) Eos # (Auto) Baso # (Auto) Differential Comment Sodium Potassium Chloride Carbon Dioxide Anion Gap BUN Creatinine Est GFR ( Amer) Est GFR (Non-Af Amer) POC Glucose (mg/dL) 107 Random Glucose Calcium Total Bilirubin AST ALT Alkaline Phosphatase Total Protein Albumin Globulin Albumin/Globulin Ratio - Imaging and Cardiology Chest x-ray Status: Report reviewed by me (SEE REPORT) Assessment & Plan (1) UTI (urinary tract infection) Status: Acute Priority: Medium (2) Chest pain Status: Acute (3) Pancytopenia Status: Acute (4) MDD (major depressive disorder) Status: Chronic Priority: High (5) Multiple sclerosis Status: Acute (6) Diabetes mellitus Status: Acute - Assessment and Plan (Free Text) Plan: PLAN. PANCULTURES uRINE CULTURE PENDING IDENTIFICATION. START iv mERREM 1 G LOADING DOSE FOLLOWED BY 500 MG EVERY 8 HOURLY 09/16/18. FOLLOW-UP CBC WITH DIFFERENTIAL CMP. LIVER PROFILE IN A.M. WILL ADJUST ANTIBIOTICS AFTER CULTURES ARE OBTAINED. WILL FOLLOW ALONG WITH YOU AND MAKE FURTHER RECOMMENDATIONS NEEDED.
[2018-09-16] MEDS ORDERED: Glucagon Recombinant 1 mg Inj IM PRN (19:22)
[2018-09-16] MEDS ORDERED: Dextrose 50% SYRINGE Inj (50 ml) IV PRN (19:22)
[2018-09-16] MEDS: (Novolin R) Insulin Human Regular 100 units/ml vial SC SCH (21:19)
[2018-09-16] MEDS: Meropenem 500 MG in Sodium Chloride 0.9% 100 ML IVPB SCH (23:46)
[2018-09-17] MEDS: Nitroglycerin 2% Ointment Foilpak UD TOP SCH ×3 (06:16→17:27)
[2018-09-17] MEDS: Pantoprazole 40 mg EC Tab PO SCH (06:16)
[2018-09-17] MEDS: (Novolin R) Insulin Human Regular 100 units/ml vial SC SCH ×4 (07:30→21:32)
[2018-09-17] MEDS: Meropenem 500 MG in Sodium Chloride 0.9% 100 ML IVPB SCH ×2 (08:13→15:48)
[2018-09-17 08:33] LABS: BASO % 0.3 % (0.0-2.0); EOS # 0.1 K/uL (0.0-0.7); EOS % 2.2 % (0.0-4.0); LYMPH # 0.9 K/uL (1.0-4.3); LYMPH % 36.1 % (20.0-40.0); MEAN CELL VOLUME 91.7 fL (81.0-99.0); MEAN CORPUSCULAR HEMOGLOBIN 29.1 pg (27.0-31.0); MEAN CORPUSCULAR HGB CONC 31.7 g/dL (33.0-37.0); MEAN PLATELET VOLUME 9.7 fL (7.2-11.7); MONO # 0.3 K/uL (0.0-0.8); MONO % 11.6 % (0.0-10.0); NEUT # 1.2 K/uL (1.8-7.0); NEUT % 49.8 % (50.0-75.0); NRBC % 0.1 % (0.0-2.0); RBC 3.44 Mil/uL (3.80-5.20); RED CELL DISTRIBUTION WIDTH 12.8 % (11.5-14.5); WHITE BLOOD COUNT 2.4 K/uL (4.8-10.8)
[2018-09-17 08:47] LABS: ALB/GLOB RATIO 1.3 (1.0-2.1); ALBUMIN 3.5 g/dL (3.5-5.0); ALT/SGPT 21 U/L (9-52); AST/SGOT 25 U/L (14-36); BLOOD UREA NITROGEN 11 mg/dL (7-17); CALCIUM 8.5 mg/dl (8.6-10.4); GFR NON-AFRICAN AMERICAN > 60
[2018-09-17] MEDS: Lidocaine 5% Patch TD SCH (09:32)
[2018-09-17] MEDS: Enoxaparin 30 mg Syringe SC SCH (09:32)
[2018-09-17] MEDS: Fluticasone Nasal 50 mcg/Spray NS SCH (09:32)
[2018-09-17] MEDS: Venlafaxine 37.5 mg ER Cap PO SCH (09:33)
[2018-09-17] MEDS: Venlafaxine 150 mg ER Cap PO SCH (09:33)
[2018-09-17] MEDS: Multiple Vitamins Tab PO SCH (09:33)
--- NOTE | 2018-09-17 09:47 | PCM.PSYCH ---
Initial Psychiatric Evaluation - Initial Psychiatric Evaluation Type of Admission: Voluntary Legal Status: Capacity Chief Complaint (in patient's own words): I am feeling very depressed.' History of Present Illness and Precipitating Events: Pt is a 57 year old HF who presented to the ED with chest pain. Patient has Hx of cardiac problem with pace maker and HTN. Patient appeared very depressed. Today patient was consulted by psychiatry. Patient admits she is feeling depressed, having trouble sleeping, has no appetite, lack of interest in previously enjoyable activities, lack of energy, trouble concentrating, hopelessness, and trouble functioning. She states that these symptoms all began 7 years ago when her from diabetes complications and intensified 4 years ago after her daughter age 19 was killed in an MVA. Patient states she recently moved to [place] from [place] to live with her daughter but issues between them caused her to move out. Patient admits to constantly worrying about her living situation, family issues, and medical issues. Patient has been previously admitted for similar psychiatric symptoms, most recently in in April 2018. She currently takes Klonopin for her anxiety. Patient admits of having suicidal ideations without any plan. However she denies any past history of any suicide attempt. Patient denies auditory or visual hallucinations or paranoia. Patient denies drug use. No manic symptoms were reported or elicited. PsychHx: suicidal ideation after daughters , MDD, JAMIE, panic disorder, PTSD MedHx: MS, diabetes, hypertension, pacemaker, CAD, CHF, asthma, CVA Allergies: levofloxacin Current Medications: Active Medications Generic Name Dose Route Start Last Admin Trade Name Freq PRN Reason Stop Dose Admin Acetaminophen 650 mg 09/15/18 19:05 09/17/18 09:34 Tylenol 325mg Tab PO 650 mg Q6 PRN Administration pain Aspirin 81 mg 09/14/18 10:00 09/17/18 09:34 Ecotrin PO 81 mg DAILY [facility] Administration Clonazepam 1 mg 09/14/18 10:00 09/17/18 09:34 Klonopin PO 1 mg BID [facility] Administration Dextrose 0 ml 09/16/18 19:22 Dextrose 50% Inj IV STAT PRN Hypoglycemia Protocol Protocol Dextrose 0 gm 09/16/18 19:22 Glutose 15 PO ONCE PRN Hypoglycemia Protocol Protocol Diphenhydramine HCl 25 mg 09/14/18 22:49 Benadryl PO ONCE PRN Insomnia Enoxaparin Sodium 30 mg 09/14/18 10:00 09/17/18 09:32 Lovenox SC 30 mg DAILY [facility] Administration Ergocalciferol 1 cap 09/14/18 10:30 09/14/18 10:57 Drisdol 50,000 Intl Units Cap PO 1 cap Q7D [facility] Administration Fluticasone Propionate 1 spr 09/14/18 10:00 09/17/18 09:32 Flonase NS 1 spr DAILY [facility] Administration Folic Acid 1 mg 09/14/18 10:00 09/17/18 09:33 Folic Acid PO 1 mg DAILY [facility] Administration Glucagon 0 mg 09/16/18 19:22 Glucagen Diagnostic Kit IM STAT PRN Hypoglycemia Protocol Protocol Meropenem 500 mg/ Sodium 100 mls @ 100 mls/hr 09/17/18 00:15 09/17/18 08:13 Chloride IVPB 100 mls/hr Q8H [facility] Administration Protocol Dextrose 1,000 mls @ 0 mls/hr 09/16/18 19:22 Dextrose 5% In Water 1000 Ml IV .Q0M PRN Hypoglycemia Protocol Protocol Per Protocol Insulin Human Regular 0 unit 09/16/18 22:00 09/17/18 07:30 Novolin R SC Not Given ACHS [facility] Protocol Lidocaine 1 ea 09/14/18 10:00 09/17/18 09:32 Lidoderm TD 1 ea DAILY [facility] Administration Metoprolol Tartrate 25 mg 09/14/18 10:00 09/17/18 09:33 Lopressor PO 25 mg BID [facility] Administration Multivitamins 1 tab 09/15/18 10:00 09/17/18 09:33 Hexavitamin PO 1 tab DAILY [facility] Administration Nitroglycerin 1 ea 09/14/18 06:00 09/17/18 06:16 Nitro-Bid 2% Oint TOP 1 ea Q6 [facility] Administration Ondansetron HCl 4 mg 09/14/18 14:00 09/15/18 11:07 Zofran Inj IVP 4 mg Q8 PRN Administration Nausea/Vomiting Pantoprazole Sodium 40 mg 09/14/18 06:00 09/17/18 06:16 Protonix Ec Tab PO 40 mg 0600 [facility] Administration Quetiapine Fumarate 50 mg 09/14/18 22:00 09/16/18 21:16 Seroquel PO 50 mg HS [facility] Administration Rosuvastatin Calcium 20 mg 09/14/18 22:00 09/16/18 21:16 Crestor PO 20 mg HS [facility] Administration Venlafaxine HCl 150 mg 09/16/18 10:45 09/17/18 09:33 Effexor Xr PO 150 mg DAILY [facility] Administration Venlafaxine HCl 37.5 mg 09/16/18 10:45 09/17/18 09:33 Effexor Xr PO 37.5 mg DAILY [facility] Administration Past Psychiatric History - Past Psychiatric History Previous Treatment History: None Pertinent Medical Hx (Current Medical&Sleep Prob, Allergies): Allergies Allergy/AdvReac Type Severity Reaction Status Date / Time levofloxacin [From Levaquin] Allergy RASH Verified 09/13/18 19:28 Aspirin [Ecotrin] 81 mg PO DAILY #7 tabec 05/02/18 Atorvastatin [Lipitor] 40 mg PO DIN #7 tab 05/02/18 Fluticasone Nasal [Flonase] 1 actuation NS DAILY #1 spr 05/02/18 Folic Acid 1 mg PO DAILY #14 tab 05/02/18 Gabapentin [Neurontin] 300 mg PO TID #45 cap 05/02/18 Lidocaine 5% [Lidoderm] 1 ea TD DAILY #7 patch 05/02/18 Multivitamin Therapeutic Tab [Thera Tab] 1 tab PO 0800 #14 tab 05/02/18 Pantoprazole [Protonix EC Tab] 40 mg PO 0600 #7 ect 05/02/18 Quetiapine Fumarate [Seroquel] 50 mg PO HS #14 tablet 05/02/18 Venlafaxine [Effexor] 37.5 mg PO DAILY #14 tab 05/02/18 Venlafaxine [Effexor] 150 mg PO DAILY #14 tab 05/02/18 clonazePAM [Klonopin] 1 mg PO BID #30 tab 05/02/18 hydrOXYzine Pamoate [Vistaril] 50 mg PO BID PRN #30 cap 05/02/18 Ergocalciferol [Drisdol 50,000 Intl Units Cap] 1 cap PO Q7D #12 cap 05/22/18 Lidocaine 5% [Lidoderm] 1 ea TD DAILY #30 patch 05/22/18 Metoprolol Tartrate [Lopressor] 25 mg PO BID #60 tab 05/22/18 Review of Systems - Review of Systems All systems: reviewed and no additional remarkable complaints except - Psychiatric Psychiatric: Anxiety, Depression, Hopelessness, Suicidal Ideation Mental Status Examination - Personal Presentation Personal Presentation: Looks stated age - Affect Affect: Constricted, Depressed - Motor Activity Motor Activity: Calm - Reliability in Providing Information Reliability in Providing Information: Poor, due to altered mood - Speech Speech: Organized - Mood Mood: Depressed, Anxious - Formal Thought Process Formal Thought Process: No Impairment - Obsessions/Compulsions Obsessions: No Compulsions: No - Cognitive Functions Orientation: Person, Place, Situation, Time Sensorium: Alert Attention/Concentration: Attentive Abstract Thinking: [place] Estimate of Intelligence: Below average Judgement: Imparied, as evidence by: Poor judgement, Imparied, as evidence by: Lack of insight into illness - Risk Risk: Suicidal, Diminished functioning - Limitations Limitations: Living alone DSM 5 DX - DSM 5 DSM 5 Diagnosis: Major Depressive Disorder recurrent severe without psychotic features - Recommended/Plan of Treatment Treatment Recommendations and Plan of Treatment: Major Depressive Disorder recurrent severe without psychotic features CBT Psychoeducation Effexor for depression Remron for depression Seroquel for insomnia DC Klonopin for anxiety As needed for anxiety Start Ativan 0.5 mg every 6 hours Pt to be admitted at the psych unit after medical clearance - Smoking Cessation Smoking Cessation Initiated: No
--- NOTE | 2018-09-17 11:22 | CP.PCM.PN ---
Subjective - Date & Time of Evaluation Date of Evaluation: 09/17/18 Time of Evaluation: 11:21 - Subjective Subjective: ON IV AB FOR UTI NEEDS TO ADJUST PSYCH MEDS CARDIAC STATUS STABLE P/E SAME SEE ORDERS Objective - Vital Signs/Intake and Output Vital Signs (last 24 hours): Temp Pulse Resp BP Pulse Ox 98.2 F 62 18 110/64 95 09/17/18 07:00 09/17/18 07:00 09/17/18 07:00 09/17/18 09:33 09/17/18 07:00 Intake and Output: 09/16/18 09/17/18 23:59 11:59 Intake Total 380 110 Balance 380 110 - Medications Medications: Current Medications Acetaminophen (Tylenol 325mg Tab) 650 mg PO Q6 PRN PRN Reason: pain Last Admin: 09/17/18 09:34 Dose: 650 mg Aspirin (Ecotrin) 81 mg PO DAILY [facility] Last Admin: 09/17/18 09:34 Dose: 81 mg Clonazepam (Klonopin) 1 mg PO BID [facility] Last Admin: 09/17/18 09:34 Dose: 1 mg Dextrose (Dextrose 50% Inj) 0 ml IV STAT PRN; Protocol PRN Reason: Hypoglycemia Protocol Dextrose (Glutose 15) 0 gm PO ONCE PRN; Protocol PRN Reason: Hypoglycemia Protocol Diphenhydramine HCl (Benadryl) 25 mg PO ONCE PRN PRN Reason: Insomnia Enoxaparin Sodium (Lovenox) 30 mg SC DAILY [facility] Last Admin: 09/17/18 09:32 Dose: 30 mg Ergocalciferol (Drisdol 50,000 Intl Units Cap) 1 cap PO Q7D [facility] Last Admin: 09/14/18 10:57 Dose: 1 cap Fluticasone Propionate (Flonase) 1 spr NS DAILY [facility] Last Admin: 09/17/18 09:32 Dose: 1 spr Folic Acid (Folic Acid) 1 mg PO DAILY [facility] Last Admin: 09/17/18 09:33 Dose: 1 mg Glucagon (Glucagen Diagnostic Kit) 0 mg IM STAT PRN; Protocol PRN Reason: Hypoglycemia Protocol Meropenem 500 mg/ Sodium (Chloride) 100 mls @ 100 mls/hr IVPB Q8H [facility]; Protocol Last Admin: 09/17/18 08:13 Dose: 100 mls/hr Dextrose (Dextrose 5% In Water 1000 Ml) 1,000 mls @ 0 mls/hr IV .Q0M PRN; Protocol PRN Reason: Hypoglycemia Protocol Insulin Human Regular (Novolin R) 0 unit SC ACHS [facility]; Protocol Last Admin: 09/17/18 07:30 Dose: Not Given Lidocaine (Lidoderm) 1 ea TD DAILY [facility] Last Admin: 09/17/18 09:32 Dose: 1 ea Metoprolol Tartrate (Lopressor) 25 mg PO BID [facility] Last Admin: 09/17/18 09:33 Dose: 25 mg Multivitamins (Hexavitamin) 1 tab PO DAILY [facility] Last Admin: 09/17/18 09:33 Dose: 1 tab Nitroglycerin (Nitro-Bid 2% Oint) 1 ea TOP Q6 [facility] Last Admin: 09/17/18 06:16 Dose: 1 ea Ondansetron HCl (Zofran Inj) 4 mg IVP Q8 PRN PRN Reason: Nausea/Vomiting Last Admin: 09/15/18 11:07 Dose: 4 mg Pantoprazole Sodium (Protonix Ec Tab) 40 mg PO 0600 [facility] Last Admin: 09/17/18 06:16 Dose: 40 mg Quetiapine Fumarate (Seroquel) 50 mg PO HS [facility] Last Admin: 09/16/18 21:16 Dose: 50 mg Rosuvastatin Calcium (Crestor) 20 mg PO HS [facility] Last Admin: 09/16/18 21:16 Dose: 20 mg Venlafaxine HCl (Effexor Xr) 150 mg PO DAILY [facility] Last Admin: 09/17/18 09:33 Dose: 150 mg Venlafaxine HCl (Effexor Xr) 37.5 mg PO DAILY [facility] Last Admin: 09/17/18 09:33 Dose: 37.5 mg - Labs Labs: 09/17/18 08:17 09/17/18 08:17 PT 14.5 SECONDS (9.7-12.2) H 09/13/18 19:59 INR 1.3 09/13/18 19:59 APTT 32 SECONDS (21-34) 09/13/18 19:59 Assessment and Plan (1) Chest pain Status: Acute (2) Multiple sclerosis Status: Acute (3) Panic disorder Status: Chronic
--- NOTE | 2018-09-17 13:04 | CP.PCM.PN ---
Subjective - Date & Time of Evaluation Date of Evaluation: 09/17/18 Time of Evaluation: 13:04 - Subjective Subjective: AFEBRILE, VSS, C/O BACKPAIN GENERALIZED WEAKNESS. FREQUENCY OF URINATION. LABS REVIEWED. BLOOD CULTURES 09/16 -VE GROWTH FOR 24 HOURS. URINE CULTURES 09/15/18 +VE kLEBSIELLA PNEUMONIAE - PANSENSITIVE Objective - Vital Signs/Intake and Output Vital Signs (last 24 hours): Temp Pulse Resp BP Pulse Ox 98.2 F 61 18 110/64 95 09/17/18 07:00 09/17/18 11:19 09/17/18 07:00 09/17/18 09:33 09/17/18 07:00 Intake and Output: 09/17/18 09/17/18 06:59 18:59 Intake Total 110 Balance 110 - Medications Medications: Current Medications Acetaminophen (Tylenol 325mg Tab) 650 mg PO Q6 PRN PRN Reason: pain Last Admin: 09/17/18 09:34 Dose: 650 mg Aspirin (Ecotrin) 81 mg PO DAILY [facility] Last Admin: 09/17/18 09:34 Dose: 81 mg Clonazepam (Klonopin) 1 mg PO BID [facility] Last Admin: 09/17/18 09:34 Dose: 1 mg Dextrose (Dextrose 50% Inj) 0 ml IV STAT PRN; Protocol PRN Reason: Hypoglycemia Protocol Dextrose (Glutose 15) 0 gm PO ONCE PRN; Protocol PRN Reason: Hypoglycemia Protocol Diphenhydramine HCl (Benadryl) 25 mg PO ONCE PRN PRN Reason: Insomnia Enoxaparin Sodium (Lovenox) 30 mg SC DAILY [facility] Last Admin: 09/17/18 09:32 Dose: 30 mg Ergocalciferol (Drisdol 50,000 Intl Units Cap) 1 cap PO Q7D [facility] Last Admin: 09/14/18 10:57 Dose: 1 cap Fluticasone Propionate (Flonase) 1 spr NS DAILY [facility] Last Admin: 09/17/18 09:32 Dose: 1 spr Folic Acid (Folic Acid) 1 mg PO DAILY [facility] Last Admin: 09/17/18 09:33 Dose: 1 mg Glucagon (Glucagen Diagnostic Kit) 0 mg IM STAT PRN; Protocol PRN Reason: Hypoglycemia Protocol Meropenem 500 mg/ Sodium (Chloride) 100 mls @ 100 mls/hr IVPB Q8H [facility]; Protocol Last Admin: 09/17/18 08:13 Dose: 100 mls/hr Dextrose (Dextrose 5% In Water 1000 Ml) 1,000 mls @ 0 mls/hr IV .Q0M PRN; Protocol PRN Reason: Hypoglycemia Protocol Insulin Human Regular (Novolin R) 0 unit SC ACHS [facility]; Protocol Last Admin: 09/17/18 12:18 Dose: 2 units Lidocaine (Lidoderm) 1 ea TD DAILY [facility] Last Admin: 09/17/18 09:32 Dose: 1 ea Metoprolol Tartrate (Lopressor) 25 mg PO BID [facility] Last Admin: 09/17/18 09:33 Dose: 25 mg Multivitamins (Hexavitamin) 1 tab PO DAILY [facility] Last Admin: 09/17/18 09:33 Dose: 1 tab Nitroglycerin (Nitro-Bid 2% Oint) 1 ea TOP Q6 [facility] Last Admin: 09/17/18 06:16 Dose: 1 ea Ondansetron HCl (Zofran Inj) 4 mg IVP Q8 PRN PRN Reason: Nausea/Vomiting Last Admin: 09/15/18 11:07 Dose: 4 mg Pantoprazole Sodium (Protonix Ec Tab) 40 mg PO 0600 [facility] Last Admin: 09/17/18 06:16 Dose: 40 mg Quetiapine Fumarate (Seroquel) 50 mg PO HS [facility] Last Admin: 09/16/18 21:16 Dose: 50 mg Rosuvastatin Calcium (Crestor) 20 mg PO HS [facility] Last Admin: 09/16/18 21:16 Dose: 20 mg Venlafaxine HCl (Effexor Xr) 150 mg PO DAILY [facility] Last Admin: 09/17/18 09:33 Dose: 150 mg Venlafaxine HCl (Effexor Xr) 37.5 mg PO DAILY [facility] Last Admin: 09/17/18 09:33 Dose: 37.5 mg - Labs Labs: 09/17/18 08:17 09/17/18 08:17 PT 14.5 SECONDS (9.7-12.2) H 09/13/18 19:59 INR 1.3 09/13/18 19:59 APTT 32 SECONDS (21-34) 09/13/18 19:59 - Constitutional Appears: No Acute Distress - Head Exam Head Exam: NORMAL INSPECTION - Eye Exam Eye Exam: EOMI, PERRL - ENT Exam ENT Exam: Normal Oropharynx - Neck Exam Neck Exam: absent: Lymphadenopathy - Cardiovascular Exam Cardiovascular Exam: REGULAR RHYTHM, +S1, +S2 - GI/Abdominal Exam GI & Abdominal Exam: Soft, Normal Bowel Sounds. absent: Tenderness - Extremities Exam Extremities Exam: Normal Capillary Refill, Pedal Edema (1+). absent: Calf Tenderness - Neurological Exam Neurological Exam: Alert, Awake, CN II-XII Intact, Oriented x3, Reflexes Normal - Psychiatric Exam Psychiatric exam: Normal Mood - Skin Skin Exam: Normal Color, Warm Assessment and Plan (1) UTI (urinary tract infection) Status: Acute (2) Pancytopenia Status: Acute (3) Chest pain Status: Acute (4) Multiple sclerosis Status: Acute (5) Diabetes mellitus Status: Acute (6) Depression Status: Chronic - Assessment and Plan (Free Text) Plan: CONTINUE iv MERREM 500 MG EVERY 8 HOURLY 09/16/18. FOLLOW-UP CBC WITH DIFFERENTIAL CMP. LIVER PROFILE IN A.M. HEMATOLOGY EVALUATION OF PANCYTOPENIA. RENAL US R/O KIDNEY STONES/HYDRONEPHROSIS. PER CONSULTANTS.
--- NOTE | 2018-09-17 20:39 | CP.PCM.CON ---
History of Present Illness - History of Present Illness History of Present Illness: 57 year old female with a history of CAD, HTN, DM, gastric bypass, depression, MS, admitted with chest pain, with pancytopenia. The patient notes to being anemic in the past after her gastric bypass. She has not be compliant with her vitamins as was recommended with her gastric bypass. She denies abnormal bleeding and bruising. Past medical history: CAD, HTN, DM, depression, MS Past surgical history: Gastric bypass Family history: Father had lung cancer (smoker). Social history: Denies tobacco, alcohol, and illicit drug use. Allergies: Levofloxacin Review of systems: All remaining review of systems including HEENT, cardiovascular, respiratory, gastrointestinal, genitourinary, musculoskeletal, dermatologic, neurologic, and psychiatric are negative unless mentioned in the HPI. Past Patient History - Infectious Disease Hx of Infectious Diseases: None - Tetanus Immunizations Tetanus Immunization: Unknown - Past Social History Smoking Status: Former Smoker - CARDIAC Hx Congestive Heart Failure: Yes Hx Hypercholesterolemia: Yes Hx Hypertension: Yes - PULMONARY Hx Asthma: Yes - NEUROLOGICAL Hx Migraine: Yes Hx Multiple Sclerosis: Yes Hx Seizures: No - HEENT Hx HEENT Problems: No - RENAL Hx Chronic Kidney Disease: Yes Hx Kidney Stones: Yes - ENDOCRINE/METABOLIC Hx Diabetes Mellitus Type 2: Yes - HEMATOLOGICAL/ONCOLOGICAL Hx Anemia: Yes Hx Human Immunodeficiency Virus (HIV): No - INTEGUMENTARY Hx Dermatological Problems: No - MUSCULOSKELETAL/RHEUMATOLOGICAL Hx Arthritis: Yes - GASTROINTESTINAL Hx Gastrointestinal Disorders: Yes Hx Colitis: Yes - GENITOURINARY/GYNECOLOGICAL Hx Sexually Transmitted Disorders: No - PSYCHIATRIC Hx Anxiety: Yes Hx Bipolar Disorder: Yes Hx Depression: Yes Hx Substance Use: No (see HPI) - SURGICAL HISTORY Hx Cholecystectomy: Yes - ANESTHESIA Hx Anesthesia: Yes Hx Anesthesia Reactions: No Hx Malignant Hyperthermia: No Meds Allergies/Adverse Reactions: Allergies Allergy/AdvReac Type Severity Reaction Status Date / Time levofloxacin [From Levaquin] Allergy RASH Verified 09/13/18 19:28 - Medications Medications: Current Medications Acetaminophen (Tylenol 325mg Tab) 650 mg PO Q6 PRN PRN Reason: pain Last Admin: 09/17/18 15:46 Dose: 650 mg Aspirin (Ecotrin) 81 mg PO DAILY [facility] Last Admin: 09/17/18 09:34 Dose: 81 mg Clonazepam (Klonopin) 1 mg PO BID [facility] Last Admin: 09/17/18 17:25 Dose: 1 mg Dextrose (Dextrose 50% Inj) 0 ml IV STAT PRN; Protocol PRN Reason: Hypoglycemia Protocol Dextrose (Glutose 15) 0 gm PO ONCE PRN; Protocol PRN Reason: Hypoglycemia Protocol Diphenhydramine HCl (Benadryl) 25 mg PO ONCE PRN PRN Reason: Insomnia Enoxaparin Sodium (Lovenox) 30 mg SC DAILY [facility] Last Admin: 09/17/18 09:32 Dose: 30 mg Ergocalciferol (Drisdol 50,000 Intl Units Cap) 1 cap PO Q7D [facility] Last Admin: 09/14/18 10:57 Dose: 1 cap Fluticasone Propionate (Flonase) 1 spr NS DAILY [facility] Last Admin: 09/17/18 09:32 Dose: 1 spr Folic Acid (Folic Acid) 1 mg PO DAILY [facility] Last Admin: 09/17/18 09:33 Dose: 1 mg Glucagon (Glucagen Diagnostic Kit) 0 mg IM STAT PRN; Protocol PRN Reason: Hypoglycemia Protocol Meropenem 500 mg/ Sodium (Chloride) 100 mls @ 100 mls/hr IVPB Q8H [facility]; Protocol Last Admin: 09/17/18 15:48 Dose: 100 mls/hr Dextrose (Dextrose 5% In Water 1000 Ml) 1,000 mls @ 0 mls/hr IV .Q0M PRN; Protocol PRN Reason: Hypoglycemia Protocol Insulin Human Regular (Novolin R) 0 unit SC ACHS [facility]; Protocol Last Admin: 09/17/18 17:15 Dose: Not Given Lidocaine (Lidoderm) 1 ea TD DAILY [facility] Last Admin: 09/17/18 09:32 Dose: 1 ea Metoprolol Tartrate (Lopressor) 25 mg PO BID [facility] Last Admin: 09/17/18 17:27 Dose: Not Given Mirtazapine (Remeron) 15 mg PO HS [facility] Multivitamins (Hexavitamin) 1 tab PO DAILY [facility] Last Admin: 09/17/18 09:33 Dose: 1 tab Nitroglycerin (Nitro-Bid 2% Oint) 1 ea TOP Q6 [facility] Last Admin: 09/17/18 17:27 Dose: Not Given Ondansetron HCl (Zofran Inj) 4 mg IVP Q8 PRN PRN Reason: Nausea/Vomiting Last Admin: 09/15/18 11:07 Dose: 4 mg Pantoprazole Sodium (Protonix Ec Tab) 40 mg PO 0600 [facility] Last Admin: 09/17/18 06:16 Dose: 40 mg Quetiapine Fumarate (Seroquel) 50 mg PO [facility] Last Admin: 09/16/18 21:16 Dose: 50 mg Rosuvastatin Calcium (Crestor) 20 mg PO [facility] Last Admin: 09/16/18 21:16 Dose: 20 mg Venlafaxine HCl (Effexor Xr) 150 mg PO DAILY [facility] Last Admin: 09/17/18 09:33 Dose: 150 mg Venlafaxine HCl (Effexor Xr) 37.5 mg PO DAILY [facility] Last Admin: 09/17/18 09:33 Dose: 37.5 mg Physical Exam - Head Exam Head Exam: ATRAUMATIC - Eye Exam Eye Exam: Normal appearance - ENT Exam ENT Exam: Mucous Membranes Dry - Respiratory Exam Respiratory Exam: NORMAL BREATHING PATTERN - Cardiovascular Exam Cardiovascular Exam: +S1, +S2 - GI/Abdominal Exam GI & Abdominal Exam: Normal Bowel Sounds - Extremities Exam Extremities exam: Positive for: normal inspection Results - Vital Signs Recent Vital Signs: Last Vital Signs Temp 98.6 F 09/17/18 15:49 Pulse 60 09/17/18 15:49 Resp 20 09/17/18 15:49 BP 104/64 09/17/18 15:49 Pulse Ox 100 09/17/18 15:49 - Labs Result Diagrams: 09/17/18 08:17 09/17/18 08:17 Labs: Laboratory Results - last 24 hr 09/16/18 09/17/18 09/17/18 08:27 08:17 08:17 WBC 2.4 L RBC 3.44 L Hgb 10.0 L Hct 31.6 L MCV 91.7 MCH 29.1 MCHC 31.7 L RDW 12.8 Plt Count 138 MPV 9.7 Neut % (Auto) 49.8 L Lymph % (Auto) 36.1 [place] % (Auto) 11.6 H Eos % (Auto) 2.2 Baso % (Auto) 0.3 Neut # (Auto) 1.2 L Lymph # (Auto) 0.9 L [place] # (Auto) 0.3 Eos # (Auto) 0.1 Baso # (Auto) 0.0 Smear Path Review Sodium 136 Potassium 3.8 Chloride 98 Carbon Dioxide 32 H Anion Gap 10 BUN 11 Creatinine 0.9 Est GFR ( Amer) > 60 Est GFR (Non-Af Amer) > 60 Random Glucose 93 Calcium 8.5 L Total Bilirubin 0.2 AST 25 ALT 21 Alkaline Phosphatase 122 Total Protein 6.2 L Albumin 3.5 Globulin 2.7 Albumin/Globulin Ratio 1.3 Assessment & Plan (1) Pancytopenia Assessment and Plan: rule out nutritional deficiency given gastric bypass retic count, b12, folate, ferritin, FOBT, zinc, copper HIV and hepatitis panel Thank you for this interesting consult. Status: Acute
[2018-09-18] MEDS: Nitroglycerin 2% Ointment Foilpak UD TOP SCH ×5 (00:03→23:58)
[2018-09-18] MEDS: Meropenem 500 MG in Sodium Chloride 0.9% 100 ML IVPB SCH ×4 (00:03→23:55)
[2018-09-18] MEDS: Pantoprazole 40 mg EC Tab PO SCH (06:07)
[2018-09-18] MEDS: (Novolin R) Insulin Human Regular 100 units/ml vial SC SCH ×4 (08:05→21:42)
[2018-09-18 09:22] LABS: BASO % 0.5 % (0.0-2.0); EOS # 0.1 K/uL (0.0-0.7); EOS % 2.8 % (0.0-4.0); HEMOGLOBIN 10.4 g/dL (11.0-16.0); LYMPH # 0.9 K/uL (1.0-4.3); LYMPH % 40.6 % (20.0-40.0); MEAN CELL VOLUME 92.2 fL (81.0-99.0); MEAN CORPUSCULAR HEMOGLOBIN 29.5 pg (27.0-31.0); MEAN PLATELET VOLUME 10.2 fL (7.2-11.7); MONO # 0.2 K/uL (0.0-0.8); MONO % 9.6 % (0.0-10.0); NEUT % 46.5 % (50.0-75.0); NRBC % 0.2 % (0.0-2.0); RBC 3.52 Mil/uL (3.80-5.20); WHITE BLOOD COUNT 2.3 K/uL (4.8-10.8)
[2018-09-18 09:34] LABS: ALB/GLOB RATIO 1.3 (1.0-2.1); ALBUMIN 3.4 g/dL (3.5-5.0); ALT/SGPT 28 U/L (9-52); AST/SGOT 25 U/L (14-36); BLOOD UREA NITROGEN 11 mg/dL (7-17); CALCIUM 8.4 mg/dl (8.6-10.4); GFR NON-AFRICAN AMERICAN > 60
[2018-09-18 10:05] LABS: HEPATITIS B SURFACE AG Negative (NEGATIVE)
[2018-09-18 10:10] LABS: HEPATITIS A IGM NEGATIVE (NEGATIVE); HEPATITIS B CORE AB NEGATIVE (NEGATIVE)
[2018-09-18 10:15] LABS: FERRITIN 19.2 ng/mL
[2018-09-18] MEDS: Enoxaparin 30 mg Syringe SC SCH (10:16)
[2018-09-18] MEDS: Venlafaxine 150 mg ER Cap PO SCH (10:17)
[2018-09-18] MEDS: Venlafaxine 37.5 mg ER Cap PO SCH (10:17)
[2018-09-18] MEDS: Fluticasone Nasal 50 mcg/Spray NS SCH (10:17)
[2018-09-18] MEDS: Multiple Vitamins Tab PO SCH (10:17)
[2018-09-18] MEDS: Lidocaine 5% Patch TD SCH (10:18)
[2018-09-18 10:22] LABS: HEPATITIS C ANTIBODY NEGATIVE (NEGATIVE)
[2018-09-18 10:45] LABS: FOLATE > 20.0 ng/mL
--- NOTE | 2018-09-18 12:25 | CP.PCM.PN ---
Subjective - Date & Time of Evaluation Date of Evaluation: 09/18/18 Time of Evaluation: 12:23 - Subjective Subjective: WBC IS 2.3 ID/HEM EVALUATION NOTED NO CP URINE KLEB SPP. PROT ON IV AB Objective - Vital Signs/Intake and Output Vital Signs (last 24 hours): Temp Pulse Resp BP Pulse Ox 98.4 F 61 20 121/74 95 09/18/18 07:05 09/18/18 12:19 09/18/18 07:05 09/18/18 11:21 09/18/18 07:05 Intake and Output: 09/18/18 09/18/18 11:59 23:59 Intake Total 210 Balance 210 - Medications Medications: Current Medications Acetaminophen (Tylenol 325mg Tab) 650 mg PO Q6 PRN PRN Reason: pain Last Admin: 09/17/18 22:04 Dose: 650 mg Aspirin (Ecotrin) 81 mg PO DAILY [facility] Last Admin: 09/18/18 10:17 Dose: 81 mg Dextrose (Dextrose 50% Inj) 0 ml IV STAT PRN; Protocol PRN Reason: Hypoglycemia Protocol Dextrose (Glutose 15) 0 gm PO ONCE PRN; Protocol PRN Reason: Hypoglycemia Protocol Diphenhydramine HCl (Benadryl) 25 mg PO ONCE PRN PRN Reason: Insomnia Enoxaparin Sodium (Lovenox) 30 mg SC DAILY [facility] Last Admin: 09/18/18 10:16 Dose: 30 mg Ergocalciferol (Drisdol 50,000 Intl Units Cap) 1 cap PO Q7D [facility] Last Admin: 09/14/18 10:57 Dose: 1 cap Fluticasone Propionate (Flonase) 1 spr NS DAILY [facility] Last Admin: 09/18/18 10:17 Dose: 1 spr Folic Acid (Folic Acid) 1 mg PO DAILY [facility] Last Admin: 09/18/18 10:17 Dose: 1 mg Glucagon (Glucagen Diagnostic Kit) 0 mg IM STAT PRN; Protocol PRN Reason: Hypoglycemia Protocol Meropenem 500 mg/ Sodium (Chloride) 100 mls @ 100 mls/hr IVPB Q8H [facility]; Protocol Last Admin: 09/18/18 08:19 Dose: 100 mls/hr Dextrose (Dextrose 5% In Water 1000 Ml) 1,000 mls @ 0 mls/hr IV .Q0M PRN; Protocol PRN Reason: Hypoglycemia Protocol Insulin Human Regular (Novolin R) 0 unit SC ACHS [facility]; Protocol Last Admin: 09/18/18 11:17 Dose: Not Given Lidocaine (Lidoderm) 1 ea TD DAILY [facility] Last Admin: 09/18/18 10:18 Dose: 1 ea Lorazepam (Ativan) 0.5 mg PO Q6 PRN PRN Reason: Agitation Last Admin: 09/18/18 10:29 Dose: 0.5 mg Metoprolol Tartrate (Lopressor) 25 mg PO BID [facility] Last Admin: 09/18/18 10:17 Dose: 25 mg Mirtazapine (Remeron) 15 mg PO HS [facility] Last Admin: 09/17/18 21:32 Dose: 15 mg Multivitamins (Hexavitamin) 1 tab PO DAILY [facility] Last Admin: 09/18/18 10:17 Dose: 1 tab Nitroglycerin (Nitro-Bid 2% Oint) 1 ea TOP Q6 [facility] Last Admin: 09/18/18 11:20 Dose: 1 ea Ondansetron HCl (Zofran Inj) 4 mg IVP Q8 PRN PRN Reason: Nausea/Vomiting Last Admin: 09/15/18 11:07 Dose: 4 mg Pantoprazole Sodium (Protonix Ec Tab) 40 mg PO 0600 [facility] Last Admin: 09/18/18 06:07 Dose: 40 mg Quetiapine Fumarate (Seroquel) 50 mg PO HS [facility] Last Admin: 09/17/18 21:32 Dose: 50 mg Rosuvastatin Calcium (Crestor) 20 mg PO HS [facility] Last Admin: 09/17/18 21:32 Dose: 20 mg Venlafaxine HCl (Effexor Xr) 150 mg PO DAILY [facility] Last Admin: 09/18/18 10:17 Dose: 150 mg Venlafaxine HCl (Effexor Xr) 37.5 mg PO DAILY [facility] Last Admin: 09/18/18 10:17 Dose: 37.5 mg - Labs Labs: 09/18/18 08:43 09/18/18 08:43 PT 14.5 SECONDS (9.7-12.2) H 09/13/18 19:59 INR 1.3 09/13/18 19:59 APTT 32 SECONDS (21-34) 09/13/18 19:59 Assessment and Plan (1) Chest pain Status: Acute (2) Multiple sclerosis Status: Acute (3) Panic disorder Status: Chronic
[2018-09-18] MEDS: Ferric Sodium Gluconat Complex 62.5 mg/5 ml Vial IVPB SCH (13:11)
--- NOTE | 2018-09-18 16:23 | US ---
Date of service: 09/18/2018 PROCEDURE: Ultrasound of the Kidneys HISTORY: RECURRENT UTI COMPARISON: None available. TECHNIQUE: Sonogram of the kidneys. FINDINGS: RIGHT KIDNEY: Measures: 12.6 x 7.8 x 9.8 cm. Normal in size, contour and echogenicity. No stone, solid mass lesion or hydronephrosis visualized. LEFT KIDNEY: Measures: 5.4 x 4.0 by 5.6 cm. Normal in size, contour and echogenicity. No stone, solid mass lesion or hydronephrosis visualized. OTHER FINDINGS: No bladder wall thickening. No intraluminal masses. Right and left ureteral jets are noted of the technologist. The left is more clearly visualized in the right per images Prevoid urine bladder volume 504.40 mL. No postvoid residual urine volume. No postvoid residual urine volume noted. IMPRESSION: Unremarkable renal sonogram.
--- NOTE | 2018-09-18 23:11 | CP.PCM.PN ---
Subjective - Date & Time of Evaluation Date of Evaluation: 09/18/18 Time of Evaluation: 12:00 - Subjective Subjective: No complaints. Objective - Vital Signs/Intake and Output Vital Signs (last 24 hours): Temp Pulse Resp BP Pulse Ox 98.7 F 62 18 158/101 H 98 09/18/18 15:37 09/18/18 15:37 09/18/18 15:37 09/18/18 17:06 09/18/18 15:37 Intake and Output: 09/18/18 09/19/18 18:59 06:59 Intake Total 550 580 Balance 550 580 - Medications Medications: Current Medications Acetaminophen (Tylenol 325mg Tab) 650 mg PO Q6 PRN PRN Reason: pain Last Admin: 09/18/18 16:01 Dose: 650 mg Aspirin (Ecotrin) 81 mg PO DAILY [facility] Last Admin: 09/18/18 10:17 Dose: 81 mg Clonazepam (Klonopin) 0.5 mg PO TID [facility] Last Admin: 09/18/18 18:47 Dose: 0.5 mg Dextrose (Dextrose 50% Inj) 0 ml IV STAT PRN; Protocol PRN Reason: Hypoglycemia Protocol Dextrose (Glutose 15) 0 gm PO ONCE PRN; Protocol PRN Reason: Hypoglycemia Protocol Diphenhydramine HCl (Benadryl) 25 mg PO ONCE PRN PRN Reason: Insomnia Enoxaparin Sodium (Lovenox) 30 mg SC DAILY [facility] Last Admin: 09/18/18 10:16 Dose: 30 mg Ergocalciferol (Drisdol 50,000 Intl Units Cap) 1 cap PO Q7D [facility] Last Admin: 09/14/18 10:57 Dose: 1 cap Ferric Sodium Gluconate Complex (Ferrlecit) 125 mg IVPB DAILY [facility] Stop: 09/26/18 12:46 Last Admin: 09/18/18 13:11 Dose: 125 mg Fluticasone Propionate (Flonase) 1 spr NS DAILY [facility] Last Admin: 09/18/18 10:17 Dose: 1 spr Folic Acid (Folic Acid) 1 mg PO DAILY [facility] Last Admin: 09/18/18 10:17 Dose: 1 mg Glucagon (Glucagen Diagnostic Kit) 0 mg IM STAT PRN; Protocol PRN Reason: Hypoglycemia Protocol Meropenem 500 mg/ Sodium (Chloride) 100 mls @ 100 mls/hr IVPB Q8H [facility]; Protocol Last Admin: 09/18/18 16:02 Dose: 100 mls/hr Dextrose (Dextrose 5% In Water 1000 Ml) 1,000 mls @ 0 mls/hr IV .Q0M PRN; Protocol PRN Reason: Hypoglycemia Protocol Insulin Human Regular (Novolin R) 0 unit SC ACHS [facility]; Protocol Last Admin: 09/18/18 21:42 Dose: Not Given Lidocaine (Lidoderm) 1 ea TD DAILY [facility] Last Admin: 09/18/18 10:18 Dose: 1 ea Lorazepam (Ativan) 0.5 mg PO Q6 PRN PRN Reason: Agitation Last Admin: 09/18/18 16:01 Dose: 0.5 mg Metoprolol Tartrate (Lopressor) 25 mg PO BID [facility] Last Admin: 09/18/18 17:06 Dose: 25 mg Mirtazapine (Remeron) 15 mg PO HS [facility] Last Admin: 09/18/18 21:42 Dose: 15 mg Multivitamins (Hexavitamin) 1 tab PO DAILY [facility] Last Admin: 09/18/18 10:17 Dose: 1 tab Nitroglycerin (Nitro-Bid 2% Oint) 1 ea TOP Q6 [facility] Last Admin: 09/18/18 17:06 Dose: 1 ea Ondansetron HCl (Zofran Inj) 4 mg IVP Q8 PRN PRN Reason: Nausea/Vomiting Last Admin: 09/18/18 18:48 Dose: 4 mg Pantoprazole Sodium (Protonix Ec Tab) 40 mg PO 0600 [facility] Last Admin: 09/18/18 06:07 Dose: 40 mg Quetiapine Fumarate (Seroquel) 50 mg PO HS [facility] Last Admin: 09/18/18 21:41 Dose: 50 mg Rosuvastatin Calcium (Crestor) 20 mg PO HS [facility] Last Admin: 09/18/18 21:41 Dose: 20 mg Venlafaxine HCl (Effexor Xr) 150 mg PO DAILY [facility] Last Admin: 09/18/18 10:17 Dose: 150 mg Venlafaxine HCl (Effexor Xr) 37.5 mg PO DAILY [facility] Last Admin: 09/18/18 10:17 Dose: 37.5 mg - Labs Labs: 09/18/18 08:43 09/18/18 08:43 PT 14.5 SECONDS (9.7-12.2) H 09/13/18 19:59 INR 1.3 09/13/18 19:59 APTT 32 SECONDS (21-34) 09/13/18 19:59 - Head Exam Head Exam: ATRAUMATIC - Eye Exam Eye Exam: Normal appearance - ENT Exam ENT Exam: Mucous Membranes Dry - Respiratory Exam Respiratory Exam: NORMAL BREATHING PATTERN - Cardiovascular Exam Cardiovascular Exam: +S1, +S2 - GI/Abdominal Exam GI & Abdominal Exam: Normal Bowel Sounds Assessment and Plan (1) Pancytopenia Assessment & Plan: iron deficiency and borderline b12 will supplement f/u zinc and copper Status: Acute
--- NOTE | 2018-09-18 23:45 | CP.PCM.PN ---
Subjective - Date & Time of Evaluation Date of Evaluation: 09/18/18 Time of Evaluation: 23:45 - Subjective Subjective: AFEBRILE, VSS, FEELING BETTER REMAINS LEUKOPENIC TOLERATING iv ANTIBIOTICS. LABS REVIEWED. BLOOD CULTURES 09/16 -VE GROWTH TO DATE URINE CULTURES 09/15/18 +VE kLEBSIELLA PNEUMONIAE - PANSENSITIVE Objective - Vital Signs/Intake and Output Vital Signs (last 24 hours): Temp Pulse Resp BP Pulse Ox 98.7 F 62 18 158/101 H 98 09/18/18 15:37 09/18/18 15:37 09/18/18 15:37 09/18/18 17:06 09/18/18 15:37 Intake and Output: 09/18/18 09/19/18 18:59 06:59 Intake Total 550 580 Balance 550 580 - Medications Medications: Current Medications Acetaminophen (Tylenol 325mg Tab) 650 mg PO Q6 PRN PRN Reason: pain Last Admin: 09/18/18 16:01 Dose: 650 mg Aspirin (Ecotrin) 81 mg PO DAILY [facility] Last Admin: 09/18/18 10:17 Dose: 81 mg Clonazepam (Klonopin) 0.5 mg PO TID [facility] Last Admin: 09/18/18 18:47 Dose: 0.5 mg Dextrose (Dextrose 50% Inj) 0 ml IV STAT PRN; Protocol PRN Reason: Hypoglycemia Protocol Dextrose (Glutose 15) 0 gm PO ONCE PRN; Protocol PRN Reason: Hypoglycemia Protocol Diphenhydramine HCl (Benadryl) 25 mg PO ONCE PRN PRN Reason: Insomnia Enoxaparin Sodium (Lovenox) 30 mg SC DAILY [facility] Last Admin: 09/18/18 10:16 Dose: 30 mg Ergocalciferol (Drisdol 50,000 Intl Units Cap) 1 cap PO Q7D [facility] Last Admin: 09/14/18 10:57 Dose: 1 cap Ferric Sodium Gluconate Complex (Ferrlecit) 125 mg IVPB DAILY [facility] Stop: 09/26/18 12:46 Last Admin: 09/18/18 13:11 Dose: 125 mg Fluticasone Propionate (Flonase) 1 spr NS DAILY [facility] Last Admin: 09/18/18 10:17 Dose: 1 spr Folic Acid (Folic Acid) 1 mg PO DAILY [facility] Last Admin: 09/18/18 10:17 Dose: 1 mg Glucagon (Glucagen Diagnostic Kit) 0 mg IM STAT PRN; Protocol PRN Reason: Hypoglycemia Protocol Meropenem 500 mg/ Sodium (Chloride) 100 mls @ 100 mls/hr IVPB Q8H [facility]; Protocol Last Admin: 09/18/18 16:02 Dose: 100 mls/hr Dextrose (Dextrose 5% In Water 1000 Ml) 1,000 mls @ 0 mls/hr IV .Q0M PRN; Protocol PRN Reason: Hypoglycemia Protocol Insulin Human Regular (Novolin R) 0 unit SC ACHS [facility]; Protocol Last Admin: 09/18/18 21:42 Dose: Not Given Lidocaine (Lidoderm) 1 ea TD DAILY [facility] Last Admin: 09/18/18 10:18 Dose: 1 ea Lorazepam (Ativan) 0.5 mg PO Q6 PRN PRN Reason: Agitation Last Admin: 09/18/18 16:01 Dose: 0.5 mg Metoprolol Tartrate (Lopressor) 25 mg PO BID [facility] Last Admin: 09/18/18 17:06 Dose: 25 mg Mirtazapine (Remeron) 15 mg PO HS [facility] Last Admin: 09/18/18 21:42 Dose: 15 mg Multivitamins (Hexavitamin) 1 tab PO DAILY [facility] Last Admin: 09/18/18 10:17 Dose: 1 tab Nitroglycerin (Nitro-Bid 2% Oint) 1 ea TOP Q6 [facility] Last Admin: 09/18/18 17:06 Dose: 1 ea Ondansetron HCl (Zofran Inj) 4 mg IVP Q8 PRN PRN Reason: Nausea/Vomiting Last Admin: 09/18/18 18:48 Dose: 4 mg Pantoprazole Sodium (Protonix Ec Tab) 40 mg PO 0600 [facility] Last Admin: 09/18/18 06:07 Dose: 40 mg Quetiapine Fumarate (Seroquel) 50 mg PO HS [facility] Last Admin: 09/18/18 21:41 Dose: 50 mg Rosuvastatin Calcium (Crestor) 20 mg PO HS [facility] Last Admin: 09/18/18 21:41 Dose: 20 mg Venlafaxine HCl (Effexor Xr) 150 mg PO DAILY [facility] Last Admin: 09/18/18 10:17 Dose: 150 mg Venlafaxine HCl (Effexor Xr) 37.5 mg PO DAILY [facility] Last Admin: 09/18/18 10:17 Dose: 37.5 mg - Labs Labs: 09/18/18 08:43 09/18/18 08:43 PT 14.5 SECONDS (9.7-12.2) H 09/13/18 19:59 INR 1.3 09/13/18 19:59 APTT 32 SECONDS (21-34) 09/13/18 19:59 - Constitutional Appears: No Acute Distress - Head Exam Head Exam: NORMAL INSPECTION - Eye Exam Eye Exam: EOMI, PERRL - ENT Exam ENT Exam: Normal Oropharynx - Neck Exam Neck Exam: Normal Inspection - Respiratory Exam Respiratory Exam: Clear to Ausculation Bilateral, NORMAL BREATHING PATTERN - Cardiovascular Exam Cardiovascular Exam: REGULAR RHYTHM, +S1, +S2 - GI/Abdominal Exam GI & Abdominal Exam: Soft, Normal Bowel Sounds. absent: Tenderness - Back Exam Back Exam: CVA tenderness (L), CVA tenderness (R) - Neurological Exam Neurological Exam: Awake, CN II-XII Intact, Oriented x3, Reflexes Normal - Psychiatric Exam Psychiatric exam: Normal Mood - Skin Skin Exam: Normal Color, Warm Assessment and Plan (1) UTI (urinary tract infection) Status: Acute (2) Pancytopenia Status: Acute (3) Chest pain Status: Acute (4) Multiple sclerosis Status: Acute (5) Diabetes mellitus Status: Acute (6) Depression Status: Chronic - Assessment and Plan (Free Text) Plan: CONTINUE iv MERREM 500 MG EVERY 8 HOURLY 09/16/18. F/U RENAL US R/O KIDNEY STONES/HYDRONEPHROSIS. PER CONSULTANTS/PMD. CASE DISCUSSED WITH THE STAFF.
[2018-09-19] MEDS: Nitroglycerin 2% Ointment Foilpak UD TOP SCH ×3 (06:11→18:29)
[2018-09-19] MEDS: Pantoprazole 40 mg EC Tab PO SCH (06:14)
[2018-09-19] MEDS: (Novolin R) Insulin Human Regular 100 units/ml vial SC SCH ×4 (07:43→21:43)
[2018-09-19] MEDS: Meropenem 500 MG in Sodium Chloride 0.9% 100 ML IVPB SCH ×2 (08:19→16:24)
[2018-09-19 09:17] LABS: BASO % 0.6 % (0.0-2.0); EOS # 0.1 K/uL (0.0-0.7); EOS % 3.7 % (0.0-4.0); HEMOGLOBIN 10.9 g/dL (11.0-16.0); LYMPH # 0.9 K/uL (1.0-4.3); LYMPH % 39.9 % (20.0-40.0); MEAN CELL VOLUME 92.3 fL (81.0-99.0); MEAN CORPUSCULAR HEMOGLOBIN 28.8 pg (27.0-31.0); MEAN CORPUSCULAR HGB CONC 31.3 g/dL (33.0-37.0); MEAN PLATELET VOLUME 9.7 fL (7.2-11.7); MONO # 0.2 K/uL (0.0-0.8); MONO % 7.8 % (0.0-10.0); NEUT # 1.1 K/uL (1.8-7.0); NRBC % 0.1 % (0.0-2.0); RBC 3.79 Mil/uL (3.80-5.20); RED CELL DISTRIBUTION WIDTH 13.1 % (11.5-14.5); WHITE BLOOD COUNT 2.3 K/uL (4.8-10.8)
[2018-09-19] MEDS: Multiple Vitamins Tab PO SCH (09:21)
[2018-09-19] MEDS: Enoxaparin 30 mg Syringe SC SCH (09:22)
[2018-09-19] MEDS: Ferric Sodium Gluconat Complex 62.5 mg/5 ml Vial IVPB SCH (09:23)
[2018-09-19] MEDS: Venlafaxine 150 mg ER Cap PO SCH (09:23)
[2018-09-19] MEDS: Venlafaxine 37.5 mg ER Cap PO SCH (09:23)
[2018-09-19] MEDS: Lidocaine 5% Patch TD SCH (09:24)
[2018-09-19] MEDS: Fluticasone Nasal 50 mcg/Spray NS SCH (09:24)
[2018-09-19 09:31] LABS: ALB/GLOB RATIO 1.3 (1.0-2.1); ALBUMIN 3.4 g/dL (3.5-5.0); ALT/SGPT 21 U/L (9-52); AST/SGOT 26 U/L (14-36); BLOOD UREA NITROGEN 12 mg/dL (7-17); CALCIUM 8.7 mg/dl (8.6-10.4); GFR NON-AFRICAN AMERICAN > 60
--- NOTE | 2018-09-19 12:06 | CP.PCM.PN ---
Subjective - Date & Time of Evaluation Date of Evaluation: 09/19/18 Time of Evaluation: 12:06 - Subjective Subjective: NO FURTHER CP AFEBRILE ON IV AB ON IV IRON P/E REMAINS SAME Objective - Vital Signs/Intake and Output Vital Signs (last 24 hours): Temp Pulse Resp BP Pulse Ox 98.0 F 66 20 115/72 93 L 09/19/18 07:00 09/19/18 07:00 09/19/18 07:00 09/19/18 09:23 09/19/18 07:00 - Medications Medications: Current Medications Acetaminophen (Tylenol 325mg Tab) 650 mg PO Q6 PRN PRN Reason: pain Last Admin: 09/19/18 09:22 Dose: 650 mg Aspirin (Ecotrin) 81 mg PO DAILY [facility] Last Admin: 09/19/18 09:21 Dose: 81 mg Clonazepam (Klonopin) 0.5 mg PO TID [facility] Last Admin: 09/19/18 09:21 Dose: 0.5 mg Dextrose (Dextrose 50% Inj) 0 ml IV STAT PRN; Protocol PRN Reason: Hypoglycemia Protocol Dextrose (Glutose 15) 0 gm PO ONCE PRN; Protocol PRN Reason: Hypoglycemia Protocol Diphenhydramine HCl (Benadryl) 25 mg PO ONCE PRN PRN Reason: Insomnia Enoxaparin Sodium (Lovenox) 30 mg SC DAILY [facility] Last Admin: 09/19/18 09:22 Dose: 30 mg Ergocalciferol (Drisdol 50,000 Intl Units Cap) 1 cap PO Q7D [facility] Last Admin: 09/14/18 10:57 Dose: 1 cap Ferric Sodium Gluconate Complex (Ferrlecit) 125 mg IVPB DAILY [facility] Stop: 09/26/18 12:46 Last Admin: 09/19/18 09:23 Dose: 125 mg Fluticasone Propionate (Flonase) 1 spr NS DAILY [facility] Last Admin: 09/19/18 09:24 Dose: 1 spr Folic Acid (Folic Acid) 1 mg PO DAILY [facility] Last Admin: 09/19/18 09:24 Dose: 1 mg Glucagon (Glucagen Diagnostic Kit) 0 mg IM STAT PRN; Protocol PRN Reason: Hypoglycemia Protocol Meropenem 500 mg/ Sodium (Chloride) 100 mls @ 100 mls/hr IVPB Q8H [facility]; Protocol Last Admin: 09/19/18 08:19 Dose: 100 mls/hr Dextrose (Dextrose 5% In Water 1000 Ml) 1,000 mls @ 0 mls/hr IV .Q0M PRN; Protocol PRN Reason: Hypoglycemia Protocol Insulin Human Regular (Novolin R) 0 unit SC ACHS [facility]; Protocol Last Admin: 09/19/18 11:30 Dose: Not Given Lidocaine (Lidoderm) 1 ea TD DAILY [facility] Last Admin: 09/19/18 09:24 Dose: 1 ea Lorazepam (Ativan) 0.5 mg PO Q6 PRN PRN Reason: Agitation Last Admin: 09/18/18 16:01 Dose: 0.5 mg Metoprolol Tartrate (Lopressor) 25 mg PO BID [facility] Last Admin: 09/19/18 09:23 Dose: 25 mg Mirtazapine (Remeron) 15 mg PO HS [facility] Last Admin: 09/18/18 21:42 Dose: 15 mg Multivitamins (Hexavitamin) 1 tab PO DAILY [facility] Last Admin: 09/19/18 09:21 Dose: 1 tab Nitroglycerin (Nitro-Bid 2% Oint) 1 ea TOP Q6 [facility] Last Admin: 09/19/18 11:22 Dose: Not Given Ondansetron HCl (Zofran Inj) 4 mg IVP Q8 PRN PRN Reason: Nausea/Vomiting Last Admin: 09/18/18 18:48 Dose: 4 mg Pantoprazole Sodium (Protonix Ec Tab) 40 mg PO 0600 [facility] Last Admin: 09/19/18 06:14 Dose: 40 mg Quetiapine Fumarate (Seroquel) 50 mg PO HS [facility] Last Admin: 09/18/18 21:41 Dose: 50 mg Rosuvastatin Calcium (Crestor) 20 mg PO HS [facility] Last Admin: 09/18/18 21:41 Dose: 20 mg Venlafaxine HCl (Effexor Xr) 150 mg PO DAILY [facility] Last Admin: 09/19/18 09:23 Dose: 150 mg Venlafaxine HCl (Effexor Xr) 37.5 mg PO DAILY [facility] Last Admin: 09/19/18 09:23 Dose: 37.5 mg - Labs Labs: 09/19/18 09:02 09/19/18 09:02 PT 14.5 SECONDS (9.7-12.2) H 09/13/18 19:59 INR 1.3 09/13/18 19:59 APTT 32 SECONDS (21-34) 09/13/18 19:59 Assessment and Plan (1) Chest pain Status: Acute (2) Multiple sclerosis Status: Acute (3) Panic disorder Status: Chronic
--- NOTE | 2018-09-19 14:42 | CP.PCM.PN ---
Subjective - Date & Time of Evaluation Date of Evaluation: 09/19/18 Time of Evaluation: 14:42 - Subjective Subjective: AFEBRILE, VSS. C/O BACK PAIN ON IV ABX. LABS/ RADIOLOGY RENAL US - NOTED UNREMARKABLE. Objective - Vital Signs/Intake and Output Vital Signs (last 24 hours): Temp Pulse Resp BP Pulse Ox 98.0 F 66 20 115/72 93 L 09/19/18 07:00 09/19/18 07:00 09/19/18 07:00 09/19/18 09:23 09/19/18 07:00 Intake and Output: 09/19/18 09/19/18 06:59 18:59 Intake Total 580 600 Balance 580 600 - Medications Medications: Current Medications Acetaminophen (Tylenol 325mg Tab) 650 mg PO Q6 PRN PRN Reason: pain Last Admin: 09/19/18 09:22 Dose: 650 mg Aspirin (Ecotrin) 81 mg PO DAILY [facility] Last Admin: 09/19/18 09:21 Dose: 81 mg Clonazepam (Klonopin) 0.5 mg PO TID [facility] Last Admin: 09/19/18 13:01 Dose: 0.5 mg Dextrose (Dextrose 50% Inj) 0 ml IV STAT PRN; Protocol PRN Reason: Hypoglycemia Protocol Dextrose (Glutose 15) 0 gm PO ONCE PRN; Protocol PRN Reason: Hypoglycemia Protocol Diphenhydramine HCl (Benadryl) 25 mg PO ONCE PRN PRN Reason: Insomnia Enoxaparin Sodium (Lovenox) 30 mg SC DAILY [facility] Last Admin: 09/19/18 09:22 Dose: 30 mg Ergocalciferol (Drisdol 50,000 Intl Units Cap) 1 cap PO Q7D [facility] Last Admin: 09/14/18 10:57 Dose: 1 cap Ferric Sodium Gluconate Complex (Ferrlecit) 125 mg IVPB DAILY [facility] Stop: 09/26/18 12:46 Last Admin: 09/19/18 09:23 Dose: 125 mg Fluticasone Propionate (Flonase) 1 spr NS DAILY [facility] Last Admin: 09/19/18 09:24 Dose: 1 spr Folic Acid (Folic Acid) 1 mg PO DAILY [facility] Last Admin: 09/19/18 09:24 Dose: 1 mg Glucagon (Glucagen Diagnostic Kit) 0 mg IM STAT PRN; Protocol PRN Reason: Hypoglycemia Protocol Meropenem 500 mg/ Sodium (Chloride) 100 mls @ 100 mls/hr IVPB Q8H [facility]; Protocol Last Admin: 09/19/18 08:19 Dose: 100 mls/hr Dextrose (Dextrose 5% In Water 1000 Ml) 1,000 mls @ 0 mls/hr IV .Q0M PRN; Protocol PRN Reason: Hypoglycemia Protocol Insulin Human Regular (Novolin R) 0 unit SC ACHS [facility]; Protocol Last Admin: 09/19/18 11:30 Dose: Not Given Lidocaine (Lidoderm) 1 ea TD DAILY [facility] Last Admin: 09/19/18 09:24 Dose: 1 ea Lorazepam (Ativan) 0.5 mg PO Q6 PRN PRN Reason: Agitation Last Admin: 09/18/18 16:01 Dose: 0.5 mg Metoprolol Tartrate (Lopressor) 25 mg PO BID [facility] Last Admin: 09/19/18 09:23 Dose: 25 mg Mirtazapine (Remeron) 15 mg PO HS [facility] Last Admin: 09/18/18 21:42 Dose: 15 mg Multivitamins (Hexavitamin) 1 tab PO DAILY [facility] Last Admin: 09/19/18 09:21 Dose: 1 tab Nitroglycerin (Nitro-Bid 2% Oint) 1 ea TOP Q6 [facility] Last Admin: 09/19/18 11:22 Dose: Not Given Ondansetron HCl (Zofran Inj) 4 mg IVP Q8 PRN PRN Reason: Nausea/Vomiting Last Admin: 09/18/18 18:48 Dose: 4 mg Pantoprazole Sodium (Protonix Ec Tab) 40 mg PO 0600 [facility] Last Admin: 09/19/18 06:14 Dose: 40 mg Quetiapine Fumarate (Seroquel) 50 mg PO HS [facility] Last Admin: 09/18/18 21:41 Dose: 50 mg Rosuvastatin Calcium (Crestor) 20 mg PO HS [facility] Last Admin: 09/18/18 21:41 Dose: 20 mg Venlafaxine HCl (Effexor Xr) 150 mg PO DAILY [facility] Last Admin: 09/19/18 09:23 Dose: 150 mg Venlafaxine HCl (Effexor Xr) 37.5 mg PO DAILY [facility] Last Admin: 09/19/18 09:23 Dose: 37.5 mg - Labs Labs: 09/19/18 09:02 09/19/18 09:02 PT 14.5 SECONDS (9.7-12.2) H 09/13/18 19:59 INR 1.3 09/13/18 19:59 APTT 32 SECONDS (21-34) 09/13/18 19:59 - Constitutional Appears: No Acute Distress - Head Exam Head Exam: NORMAL INSPECTION - Eye Exam Eye Exam: EOMI, PERRL - ENT Exam ENT Exam: Normal Oropharynx - Neck Exam Neck Exam: Normal Inspection - Respiratory Exam Respiratory Exam: Clear to Ausculation Bilateral, NORMAL BREATHING PATTERN - Cardiovascular Exam Cardiovascular Exam: REGULAR RHYTHM, +S1, +S2 - GI/Abdominal Exam GI & Abdominal Exam: Soft, Tenderness (RT FLANK AND BACK.), Normal Bowel Sounds - Extremities Exam Extremities Exam: Normal Capillary Refill, Pedal Edema. absent: Calf Tenderness - Neurological Exam Neurological Exam: Alert, Awake, CN II-XII Intact, Oriented x3 - Psychiatric Exam Psychiatric exam: Normal Mood - Skin Skin Exam: Normal Color, Warm Assessment and Plan (1) UTI (urinary tract infection) Status: Acute (2) Pancytopenia Status: Acute (3) Chest pain Status: Acute (4) Multiple sclerosis Status: Acute (5) Diabetes mellitus Status: Acute (6) Depression Status: Chronic - Assessment and Plan (Free Text) Plan: CONTINUE iv MERREM 500 MG EVERY 8 HOURLY 09/16/18. RENAL US - NOTED UNREMARKABLE. F/U REPEAT UA, URINE CULTURE -CLEAN CATCH. 09/20/18 PER CONSULTANTS/PMD. CASE DISCUSSED WITH THE STAFF.
--- NOTE | 2018-09-19 22:55 | CP.PCM.PN ---
Subjective - Date & Time of Evaluation Date of Evaluation: 09/19/18 Time of Evaluation: 19:00 - Subjective Subjective: Has back pain. Objective - Vital Signs/Intake and Output Vital Signs (last 24 hours): Temp Pulse Resp BP Pulse Ox 98.2 F 60 20 107/67 97 09/19/18 15:30 09/19/18 15:30 09/19/18 15:30 09/19/18 18:29 09/19/18 15:30 Intake and Output: 09/19/18 09/20/18 18:59 06:59 Intake Total 600 Balance 600 - Medications Medications: Current Medications Acetaminophen (Tylenol 325mg Tab) 650 mg PO Q6 PRN PRN Reason: pain Last Admin: 09/19/18 21:44 Dose: 650 mg Aspirin (Ecotrin) 81 mg PO DAILY [facility] Last Admin: 09/19/18 09:21 Dose: 81 mg Clonazepam (Klonopin) 0.5 mg PO TID [facility] Last Admin: 09/19/18 18:29 Dose: 0.5 mg Dextrose (Dextrose 50% Inj) 0 ml IV STAT PRN; Protocol PRN Reason: Hypoglycemia Protocol Dextrose (Glutose 15) 0 gm PO ONCE PRN; Protocol PRN Reason: Hypoglycemia Protocol Diphenhydramine HCl (Benadryl) 25 mg PO ONCE PRN PRN Reason: Insomnia Enoxaparin Sodium (Lovenox) 30 mg SC DAILY [facility] Last Admin: 09/19/18 09:22 Dose: 30 mg Ergocalciferol (Drisdol 50,000 Intl Units Cap) 1 cap PO Q7D [facility] Last Admin: 09/14/18 10:57 Dose: 1 cap Ferric Sodium Gluconate Complex (Ferrlecit) 125 mg IVPB DAILY [facility] Stop: 09/26/18 12:46 Last Admin: 09/19/18 09:23 Dose: 125 mg Fluticasone Propionate (Flonase) 1 spr NS DAILY [facility] Last Admin: 09/19/18 09:24 Dose: 1 spr Folic Acid (Folic Acid) 1 mg PO DAILY [facility] Last Admin: 09/19/18 09:24 Dose: 1 mg Glucagon (Glucagen Diagnostic Kit) 0 mg IM STAT PRN; Protocol PRN Reason: Hypoglycemia Protocol Meropenem 500 mg/ Sodium (Chloride) 100 mls @ 100 mls/hr IVPB Q8H [facility]; Protocol Last Admin: 09/19/18 16:24 Dose: 100 mls/hr Insulin Human Regular (Novolin R) 0 unit SC ACHS [facility]; Protocol Last Admin: 09/19/18 21:43 Dose: Not Given Lidocaine (Lidoderm) 1 ea TD DAILY [facility] Last Admin: 09/19/18 09:24 Dose: 1 ea Lorazepam (Ativan) 0.5 mg PO Q6 PRN PRN Reason: Agitation Last Admin: 09/18/18 16:01 Dose: 0.5 mg Metoprolol Tartrate (Lopressor) 25 mg PO BID [facility] Last Admin: 09/19/18 18:29 Dose: 25 mg Mirtazapine (Remeron) 15 mg PO HS [facility] Last Admin: 09/19/18 21:44 Dose: 15 mg Multivitamins (Hexavitamin) 1 tab PO DAILY [facility] Last Admin: 09/19/18 09:21 Dose: 1 tab Nitroglycerin (Nitro-Bid 2% Oint) 1 ea TOP Q6 [facility] Last Admin: 09/19/18 18:29 Dose: 1 ea Ondansetron HCl (Zofran Inj) 4 mg IVP Q8 PRN PRN Reason: Nausea/Vomiting Last Admin: 09/19/18 18:32 Dose: 4 mg Pantoprazole Sodium (Protonix Ec Tab) 40 mg PO 0600 [facility] Last Admin: 09/19/18 06:14 Dose: 40 mg Quetiapine Fumarate (Seroquel) 50 mg PO HS [facility] Last Admin: 09/19/18 21:44 Dose: 50 mg Rosuvastatin Calcium (Crestor) 20 mg PO HS [facility] Last Admin: 09/18/18 21:41 Dose: 20 mg Tramadol HCl (Ultram) 50 mg PO Q6 PRN PRN Reason: Pain, moderate (4-7) Last Admin: 09/19/18 19:50 Dose: 50 mg Venlafaxine HCl (Effexor Xr) 150 mg PO DAILY [facility] Last Admin: 09/19/18 09:23 Dose: 150 mg Venlafaxine HCl (Effexor Xr) 37.5 mg PO DAILY [facility] Last Admin: 09/19/18 09:23 Dose: 37.5 mg - Labs Labs: 09/19/18 09:02 09/19/18 09:02 PT 14.5 SECONDS (9.7-12.2) H 09/13/18 19:59 INR 1.3 09/13/18 19:59 APTT 32 SECONDS (21-34) 09/13/18 19:59 - Head Exam Head Exam: ATRAUMATIC - Eye Exam Eye Exam: Normal appearance - ENT Exam ENT Exam: Mucous Membranes Dry - Respiratory Exam Respiratory Exam: NORMAL BREATHING PATTERN - Cardiovascular Exam Cardiovascular Exam: +S1, +S2 - GI/Abdominal Exam GI & Abdominal Exam: Normal Bowel Sounds Assessment and Plan (1) Pancytopenia Assessment & Plan: iron deficiency and borderline b12 on supplementation f/u zinc and copper Status: Acute
[2018-09-20] MEDS: Meropenem 500 MG in Sodium Chloride 0.9% 100 ML IVPB SCH ×4 (00:21→23:45)
[2018-09-20] MEDS: Nitroglycerin 2% Ointment Foilpak UD TOP SCH ×5 (00:24→23:44)
[2018-09-20] MEDS: Pantoprazole 40 mg EC Tab PO SCH (05:51)
[2018-09-20] MEDS: (Novolin R) Insulin Human Regular 100 units/ml vial SC SCH ×4 (08:03→21:35)
[2018-09-20] MEDS: Venlafaxine 37.5 mg ER Cap PO SCH (09:37)
[2018-09-20] MEDS: Enoxaparin 30 mg Syringe SC SCH (09:37)
[2018-09-20] MEDS: Fluticasone Nasal 50 mcg/Spray NS SCH (09:37)
[2018-09-20] MEDS: Lidocaine 5% Patch TD SCH (09:37)
[2018-09-20] MEDS: Venlafaxine 150 mg ER Cap PO SCH (09:37)
[2018-09-20] MEDS: Ferric Sodium Gluconat Complex 62.5 mg/5 ml Vial IVPB SCH (09:38)
[2018-09-20] MEDS: Multiple Vitamins Tab PO SCH (09:38)
[2018-09-20 12:01] LABS: BASO % 0.5 % (0.0-2.0); EOS # 0.1 K/uL (0.0-0.7); HEMOGLOBIN 10.5 g/dL (11.0-16.0); LYMPH # 0.9 K/uL (1.0-4.3); LYMPH % 33.4 % (20.0-40.0); MEAN CELL VOLUME 93.5 fL (81.0-99.0); MEAN CORPUSCULAR HEMOGLOBIN 28.9 pg (27.0-31.0); MEAN CORPUSCULAR HGB CONC 30.9 g/dL (33.0-37.0); MEAN PLATELET VOLUME 10.2 fL (7.2-11.7); MONO # 0.2 K/uL (0.0-0.8); MONO % 8.7 % (0.0-10.0); NEUT # 1.4 K/uL (1.8-7.0); NEUT % 53.4 % (50.0-75.0); RBC 3.63 Mil/uL (3.80-5.20); RED CELL DISTRIBUTION WIDTH 13.1 % (11.5-14.5); WHITE BLOOD COUNT 2.6 K/uL (4.8-10.8)
[2018-09-20 12:11] LABS: ALB/GLOB RATIO 1.3 (1.0-2.1); ALBUMIN 3.4 g/dL (3.5-5.0); ALT/SGPT 25 U/L (9-52); AST/SGOT 33 U/L (14-36); BLOOD UREA NITROGEN 13 mg/dL (7-17); CALCIUM 8.5 mg/dl (8.6-10.4); GFR NON-AFRICAN AMERICAN > 60
--- NOTE | 2018-09-20 12:26 | CP.PCM.PN ---
Subjective - Date & Time of Evaluation Date of Evaluation: 09/20/18 Time of Evaluation: 12:26 - Subjective Subjective: NO FURTHER CP AFEBRILE ON IV AB ON IV IRON P/E REMAINS SAME Objective - Vital Signs/Intake and Output Vital Signs (last 24 hours): Temp Pulse Resp BP Pulse Ox 98.3 F 73 20 130/83 98 09/20/18 07:20 09/20/18 11:45 09/20/18 07:20 09/20/18 11:45 09/20/18 07:20 - Medications Medications: Current Medications Acetaminophen (Tylenol 325mg Tab) 650 mg PO Q6 PRN PRN Reason: pain Last Admin: 09/19/18 21:44 Dose: 650 mg Aspirin (Ecotrin) 81 mg PO DAILY [facility] Last Admin: 09/20/18 09:38 Dose: 81 mg Clonazepam (Klonopin) 0.5 mg PO TID [facility] Last Admin: 09/20/18 09:38 Dose: 0.5 mg Dextrose (Dextrose 50% Inj) 0 ml IV STAT PRN; Protocol PRN Reason: Hypoglycemia Protocol Dextrose (Glutose 15) 0 gm PO ONCE PRN; Protocol PRN Reason: Hypoglycemia Protocol Diphenhydramine HCl (Benadryl) 25 mg PO ONCE PRN PRN Reason: Insomnia Enoxaparin Sodium (Lovenox) 30 mg SC DAILY [facility] Last Admin: 09/20/18 09:37 Dose: 30 mg Ergocalciferol (Drisdol 50,000 Intl Units Cap) 1 cap PO Q7D [facility] Last Admin: 09/14/18 10:57 Dose: 1 cap Ferric Sodium Gluconate Complex (Ferrlecit) 125 mg IVPB DAILY [facility] Stop: 09/26/18 12:46 Last Admin: 09/20/18 09:38 Dose: 125 mg Fluticasone Propionate (Flonase) 1 spr NS DAILY [facility] Last Admin: 09/20/18 09:37 Dose: 1 spr Folic Acid (Folic Acid) 1 mg PO DAILY [facility] Last Admin: 09/20/18 09:38 Dose: 1 mg Glucagon (Glucagen Diagnostic Kit) 0 mg IM STAT PRN; Protocol PRN Reason: Hypoglycemia Protocol Meropenem 500 mg/ Sodium (Chloride) 100 mls @ 100 mls/hr IVPB Q8H [facility]; Protocol Last Admin: 09/20/18 08:15 Dose: 100 mls/hr Insulin Human Regular (Novolin R) 0 unit SC ACHS [facility]; Protocol Last Admin: 09/20/18 11:28 Dose: Not Given Lidocaine (Lidoderm) 1 ea TD DAILY [facility] Last Admin: 09/20/18 09:37 Dose: 1 ea Lorazepam (Ativan) 0.5 mg PO Q6 PRN PRN Reason: Agitation Last Admin: 09/18/18 16:01 Dose: 0.5 mg Metoprolol Tartrate (Lopressor) 25 mg PO BID [facility] Last Admin: 09/20/18 09:39 Dose: 25 mg Mirtazapine (Remeron) 15 mg PO HS [facility] Last Admin: 09/19/18 21:44 Dose: 15 mg Multivitamins (Hexavitamin) 1 tab PO DAILY [facility] Last Admin: 09/20/18 09:38 Dose: 1 tab Nitroglycerin (Nitro-Bid 2% Oint) 1 ea TOP Q6 [facility] Last Admin: 09/20/18 11:53 Dose: 1 ea Ondansetron HCl (Zofran Inj) 4 mg IVP Q8 PRN PRN Reason: Nausea/Vomiting Last Admin: 09/19/18 18:32 Dose: 4 mg Pantoprazole Sodium (Protonix Ec Tab) 40 mg PO 0600 [facility] Last Admin: 09/20/18 05:51 Dose: 40 mg Quetiapine Fumarate (Seroquel) 50 mg PO HS [facility] Last Admin: 09/19/18 21:44 Dose: 50 mg Rosuvastatin Calcium (Crestor) 20 mg PO HS [facility] Last Admin: 09/19/18 22:54 Dose: Not Given Tramadol HCl (Ultram) 50 mg PO Q6 PRN PRN Reason: Pain, moderate (4-7) Last Admin: 09/20/18 05:55 Dose: 50 mg Venlafaxine HCl (Effexor Xr) 150 mg PO DAILY [facility] Last Admin: 09/20/18 09:37 Dose: 150 mg Venlafaxine HCl (Effexor Xr) 37.5 mg PO DAILY [facility] Last Admin: 09/20/18 09:37 Dose: 37.5 mg - Labs Labs: 09/20/18 11:42 09/20/18 11:42 PT 14.5 SECONDS (9.7-12.2) H 09/13/18 19:59 INR 1.3 03/07/19 19:59 APTT 32 SECONDS (21-34) 09/13/18 19:59 Assessment and Plan (1) Chest pain Status: Acute (2) Multiple sclerosis Status: Acute (3) Panic disorder Status: Chronic
--- NOTE | 2018-09-20 17:36 | CP.PCM.PN ---
Subjective - Date & Time of Evaluation Date of Evaluation: 09/20/18 Time of Evaluation: 14:00 - Subjective Subjective: Back pain improved Objective - Vital Signs/Intake and Output Vital Signs (last 24 hours): Temp Pulse Resp BP Pulse Ox 98.8 F 68 18 137/89 99 09/20/18 15:47 09/20/18 15:47 09/20/18 15:47 09/20/18 17:13 09/20/18 15:47 Intake and Output: 09/20/18 09/20/18 06:59 18:59 Intake Total 500 520 Balance 500 520 - Medications Medications: Current Medications Acetaminophen (Tylenol 325mg Tab) 650 mg PO Q6 PRN PRN Reason: pain Last Admin: 09/20/18 14:12 Dose: 650 mg Aspirin (Ecotrin) 81 mg PO DAILY [facility] Last Admin: 09/20/18 09:38 Dose: 81 mg Clonazepam (Klonopin) 0.5 mg PO TID [facility] Last Admin: 09/20/18 17:13 Dose: 0.5 mg Dextrose (Dextrose 50% Inj) 0 ml IV STAT PRN; Protocol PRN Reason: Hypoglycemia Protocol Dextrose (Glutose 15) 0 gm PO ONCE PRN; Protocol PRN Reason: Hypoglycemia Protocol Diphenhydramine HCl (Benadryl) 25 mg PO ONCE PRN PRN Reason: Insomnia Enoxaparin Sodium (Lovenox) 30 mg SC DAILY [facility] Last Admin: 09/20/18 09:37 Dose: 30 mg Ergocalciferol (Drisdol 50,000 Intl Units Cap) 1 cap PO Q7D [facility] Last Admin: 09/14/18 10:57 Dose: 1 cap Ferric Sodium Gluconate Complex (Ferrlecit) 125 mg IVPB DAILY [facility] Stop: 09/26/18 12:46 Last Admin: 09/20/18 09:38 Dose: 125 mg Fluticasone Propionate (Flonase) 1 spr NS DAILY [facility] Last Admin: 09/20/18 09:37 Dose: 1 spr Folic Acid (Folic Acid) 1 mg PO DAILY [facility] Last Admin: 09/20/18 09:38 Dose: 1 mg Glucagon (Glucagen Diagnostic Kit) 0 mg IM STAT PRN; Protocol PRN Reason: Hypoglycemia Protocol Meropenem 500 mg/ Sodium (Chloride) 100 mls @ 100 mls/hr IVPB Q8H [facility]; Protocol Last Admin: 09/20/18 16:57 Dose: 100 mls/hr Insulin Human Regular (Novolin R) 0 unit SC ACHS [facility]; Protocol Last Admin: 09/20/18 17:09 Dose: Not Given Lidocaine (Lidoderm) 1 ea TD DAILY [facility] Last Admin: 09/20/18 09:37 Dose: 1 ea Lorazepam (Ativan) 0.5 mg PO Q6 PRN PRN Reason: Agitation Last Admin: 09/18/18 16:01 Dose: 0.5 mg Metoprolol Tartrate (Lopressor) 25 mg PO BID [facility] Last Admin: 09/20/18 17:13 Dose: 25 mg Mirtazapine (Remeron) 15 mg PO HS [facility] Last Admin: 09/19/18 21:44 Dose: 15 mg Multivitamins (Hexavitamin) 1 tab PO DAILY [facility] Last Admin: 09/20/18 09:38 Dose: 1 tab Nitroglycerin (Nitro-Bid 2% Oint) 1 ea TOP Q6 [facility] Last Admin: 09/20/18 17:13 Dose: 1 ea Ondansetron HCl (Zofran Inj) 4 mg IVP Q8 PRN PRN Reason: Nausea/Vomiting Last Admin: 09/20/18 16:57 Dose: 4 mg Pantoprazole Sodium (Protonix Ec Tab) 40 mg PO 0600 [facility] Last Admin: 09/20/18 05:51 Dose: 40 mg Quetiapine Fumarate (Seroquel) 50 mg PO HS [facility] Last Admin: 09/19/18 21:44 Dose: 50 mg Rosuvastatin Calcium (Crestor) 20 mg PO HS [facility] Last Admin: 09/19/18 22:54 Dose: Not Given Tramadol HCl (Ultram) 50 mg PO Q6 PRN PRN Reason: Pain, moderate (4-7) Last Admin: 09/20/18 05:55 Dose: 50 mg Venlafaxine HCl (Effexor Xr) 150 mg PO DAILY [facility] Last Admin: 09/20/18 09:37 Dose: 150 mg Venlafaxine HCl (Effexor Xr) 37.5 mg PO DAILY [facility] Last Admin: 09/20/18 09:37 Dose: 37.5 mg - Labs Labs: 09/20/18 11:42 09/20/18 11:42 PT 14.5 SECONDS (9.7-12.2) H 03/07/19 19:59 INR 1.3 09/13/18 19:59 APTT 32 SECONDS (21-34) 09/13/18 19:59 - Head Exam Head Exam: ATRAUMATIC - Eye Exam Eye Exam: Normal appearance - ENT Exam ENT Exam: Mucous Membranes Dry - Respiratory Exam Respiratory Exam: NORMAL BREATHING PATTERN - Cardiovascular Exam Cardiovascular Exam: +S1, +S2 - GI/Abdominal Exam GI & Abdominal Exam: Normal Bowel Sounds Assessment and Plan (1) Pancytopenia Assessment & Plan: borderline b12 and low iron on supplementation Status: Acute
[2018-09-20 20:40] LABS: SQUAMOUS EPITHIAL 1 /hpf (0-5); URINE BACTERIA OCC (<OCC); URINE BILIRUBIN NEGATIVE (NEGATIVE); URINE BLOOD NEGATIVE (NEGATIVE); URINE CLARITY Hazy (Clear); URINE COLOR Yellow (YELLOW); URINE GLUCOSE (UA) NORMAL (Normal); URINE LEUKOCYTE ESTERASE TRACE Leu/uL (Negative); URINE PROTEIN NEGATIVE (NEGATIVE); URINE UROBILINOGEN NORMAL mg/dL (0.2-1.0)
--- NOTE | 2018-09-20 20:43 | CP.PCM.PN ---
Subjective - Date & Time of Evaluation Date of Evaluation: 09/20/18 Time of Evaluation: 20:43 - Subjective Subjective: AFEBRILE, VSS. STILL C/O BACK PAIN/RT FLANK PAIN SEEN BY HEMATOLOGY ON IV ABX. LABS ; URINE CULTURE +VE KLEIBSIELLA PN.-PANSENSITIVE. BLOOD CULTURES -VE TO DATE Objective - Vital Signs/Intake and Output Vital Signs (last 24 hours): Temp Pulse Resp BP Pulse Ox 98.8 F 68 18 137/89 99 09/20/18 15:47 09/20/18 15:47 09/20/18 15:47 09/20/18 17:13 09/20/18 15:47 Intake and Output: 09/20/18 09/21/18 18:59 06:59 Intake Total 520 Balance 520 - Medications Medications: Current Medications Acetaminophen (Tylenol 325mg Tab) 650 mg PO Q6 PRN PRN Reason: pain Last Admin: 09/20/18 14:12 Dose: 650 mg Aspirin (Ecotrin) 81 mg PO DAILY [facility] Last Admin: 09/20/18 09:38 Dose: 81 mg Clonazepam (Klonopin) 0.5 mg PO TID [facility] Last Admin: 09/20/18 17:13 Dose: 0.5 mg Dextrose (Dextrose 50% Inj) 0 ml IV STAT PRN; Protocol PRN Reason: Hypoglycemia Protocol Dextrose (Glutose 15) 0 gm PO ONCE PRN; Protocol PRN Reason: Hypoglycemia Protocol Diphenhydramine HCl (Benadryl) 25 mg PO ONCE PRN PRN Reason: Insomnia Enoxaparin Sodium (Lovenox) 30 mg SC DAILY [facility] Last Admin: 09/20/18 09:37 Dose: 30 mg Ergocalciferol (Drisdol 50,000 Intl Units Cap) 1 cap PO Q7D [facility] Last Admin: 09/14/18 10:57 Dose: 1 cap Ferric Sodium Gluconate Complex (Ferrlecit) 125 mg IVPB DAILY [facility] Stop: 09/26/18 12:46 Last Admin: 09/20/18 09:38 Dose: 125 mg Fluticasone Propionate (Flonase) 1 spr NS DAILY [facility] Last Admin: 09/20/18 09:37 Dose: 1 spr Folic Acid (Folic Acid) 1 mg PO DAILY [facility] Last Admin: 09/20/18 09:38 Dose: 1 mg Glucagon (Glucagen Diagnostic Kit) 0 mg IM STAT PRN; Protocol PRN Reason: Hypoglycemia Protocol Meropenem 500 mg/ Sodium (Chloride) 100 mls @ 100 mls/hr IVPB Q8H [facility]; Protocol Last Admin: 09/20/18 16:57 Dose: 100 mls/hr Insulin Human Regular (Novolin R) 0 unit SC ACHS [facility]; Protocol Last Admin: 09/20/18 17:09 Dose: Not Given Lidocaine (Lidoderm) 1 ea TD DAILY [facility] Last Admin: 09/20/18 09:37 Dose: 1 ea Lorazepam (Ativan) 0.5 mg PO Q6 PRN PRN Reason: Agitation Last Admin: 09/18/18 16:01 Dose: 0.5 mg Metoprolol Tartrate (Lopressor) 25 mg PO BID [facility] Last Admin: 09/20/18 17:13 Dose: 25 mg Mirtazapine (Remeron) 15 mg PO HS [facility] Last Admin: 09/19/18 21:44 Dose: 15 mg Multivitamins (Hexavitamin) 1 tab PO DAILY [facility] Last Admin: 09/20/18 09:38 Dose: 1 tab Nitroglycerin (Nitro-Bid 2% Oint) 1 ea TOP Q6 [facility] Last Admin: 09/20/18 17:13 Dose: 1 ea Ondansetron HCl (Zofran Inj) 4 mg IVP Q8 PRN PRN Reason: Nausea/Vomiting Last Admin: 09/20/18 16:57 Dose: 4 mg Pantoprazole Sodium (Protonix Ec Tab) 40 mg PO 0600 [facility] Last Admin: 09/20/18 05:51 Dose: 40 mg Quetiapine Fumarate (Seroquel) 50 mg PO HS [facility] Last Admin: 09/19/18 21:44 Dose: 50 mg Rosuvastatin Calcium (Crestor) 20 mg PO HS [facility] Last Admin: 09/19/18 22:54 Dose: Not Given Tramadol HCl (Ultram) 50 mg PO Q6 PRN PRN Reason: Pain, moderate (4-7) Last Admin: 09/20/18 05:55 Dose: 50 mg Venlafaxine HCl (Effexor Xr) 150 mg PO DAILY [facility] Last Admin: 09/20/18 09:37 Dose: 150 mg Venlafaxine HCl (Effexor Xr) 37.5 mg PO DAILY [facility] Last Admin: 09/20/18 09:37 Dose: 37.5 mg - Labs Labs: 09/20/18 11:42 09/20/18 11:42 PT 14.5 SECONDS (9.7-12.2) H 09/13/18 19:59 INR 1.3 09/13/18 19:59 APTT 32 SECONDS (21-34) 09/13/18 19:59 - Constitutional Appears: No Acute Distress - Head Exam Head Exam: NORMAL INSPECTION - Eye Exam Eye Exam: EOMI, PERRL - ENT Exam ENT Exam: Normal Oropharynx - Neck Exam Neck Exam: Normal Inspection - Respiratory Exam Respiratory Exam: Decreased Breath Sounds, NORMAL BREATHING PATTERN - Cardiovascular Exam Cardiovascular Exam: REGULAR RHYTHM, +S1, +S2 - GI/Abdominal Exam GI & Abdominal Exam: Soft, Tenderness (RT CVA/FLANK), Normal Bowel Sounds. absent: Distended - Extremities Exam Extremities Exam: Normal Capillary Refill, Pedal Edema. absent: Calf Tenderness - Neurological Exam Neurological Exam: Alert, Awake, CN II-XII Intact, Oriented x3 - Psychiatric Exam Psychiatric exam: Normal Mood - Skin Skin Exam: Normal Color, Pallor Assessment and Plan (1) UTI (urinary tract infection) Status: Acute (2) Pancytopenia Status: Acute (3) Chest pain Status: Acute (4) Multiple sclerosis Status: Acute (5) Diabetes mellitus Status: Acute (6) Depression Status: Chronic - Assessment and Plan (Free Text) Plan: CONTINUE iv MERREM 500 MG EVERY 8 HOURLY 09/16/18. RENAL US - NOTED UNREMARKABLE. F/U REPEAT UA, URINE CULTURE -CLEAN CATCH. 09/20/18 PER CONSULTANTS/PMD. ANAEMIA RX PER DR TOBIAS. CASE DISCUSSED WITH THE STAFF.
[2018-09-21] MEDS: Nitroglycerin 2% Ointment Foilpak UD TOP SCH ×3 (06:15→18:01)
[2018-09-21] MEDS: Pantoprazole 40 mg EC Tab PO SCH (06:15)
[2018-09-21] MEDS: (Novolin R) Insulin Human Regular 100 units/ml vial SC SCH ×2 (07:37→18:07)
[2018-09-21 07:39] LABS: EOS # 0.1 K/uL (0.0-0.7); EOS % 3.2 % (0.0-4.0); HEMOGLOBIN 10.3 g/dL (11.0-16.0); LYMPH # 1.1 K/uL (1.0-4.3); LYMPH % 45.7 % (20.0-40.0); MEAN CELL VOLUME 92.1 fL (81.0-99.0); MEAN CORPUSCULAR HEMOGLOBIN 28.4 pg (27.0-31.0); MEAN CORPUSCULAR HGB CONC 30.8 g/dL (33.0-37.0); MEAN PLATELET VOLUME 9.7 fL (7.2-11.7); MONO # 0.2 K/uL (0.0-0.8); MONO % 9.7 % (0.0-10.0); NEUT % 40.4 % (50.0-75.0); RBC 3.63 Mil/uL (3.80-5.20); RED CELL DISTRIBUTION WIDTH 13.2 % (11.5-14.5); WHITE BLOOD COUNT 2.5 K/uL (4.8-10.8)
[2018-09-21] MEDS: Meropenem 500 MG in Sodium Chloride 0.9% 100 ML IVPB SCH ×2 (07:55→17:05)
[2018-09-21 08:11] LABS: ALB/GLOB RATIO 1.2 (1.0-2.1); ALBUMIN 3.2 g/dL (3.5-5.0); ALT/SGPT 23 U/L (9-52); AST/SGOT 34 U/L (14-36); BLOOD UREA NITROGEN 13 mg/dL (7-17); CALCIUM 8.6 mg/dl (8.6-10.4); GFR NON-AFRICAN AMERICAN > 60
[2018-09-21] MEDS: Enoxaparin 30 mg Syringe SC SCH (10:41)
[2018-09-21] MEDS: Venlafaxine 37.5 mg ER Cap PO SCH (10:41)
[2018-09-21] MEDS: Lidocaine 5% Patch TD SCH (10:41)
[2018-09-21] MEDS: Venlafaxine 150 mg ER Cap PO SCH (10:41)
[2018-09-21] MEDS: Ferric Sodium Gluconat Complex 62.5 mg/5 ml Vial IVPB SCH (10:41)
[2018-09-21] MEDS: Multiple Vitamins Tab PO SCH (10:42)
[2018-09-21] MEDS: Fluticasone Nasal 50 mcg/Spray NS SCH (10:42)
--- NOTE | 2018-09-21 13:11 | CP.PCM.PN ---
Subjective - Date & Time of Evaluation Date of Evaluation: 09/21/18 Time of Evaluation: 12:00 - Subjective Subjective: Back pain improved Objective - Vital Signs/Intake and Output Vital Signs (last 24 hours): Temp Pulse Resp BP Pulse Ox 98 F 63 20 116/73 94 L 09/21/18 07:00 09/21/18 07:00 09/21/18 07:00 09/21/18 10:43 09/21/18 07:00 Intake and Output: 09/21/18 09/21/18 06:59 18:59 Intake Total 580 Balance 580 - Medications Medications: Current Medications Acetaminophen (Tylenol 325mg Tab) 650 mg PO Q6 PRN PRN Reason: pain Last Admin: 09/20/18 14:12 Dose: 650 mg Aspirin (Ecotrin) 81 mg PO DAILY [facility] Last Admin: 09/21/18 10:42 Dose: 81 mg Clonazepam (Klonopin) 0.5 mg PO TID [facility] Last Admin: 09/21/18 10:43 Dose: 0.5 mg Dextrose (Dextrose 50% Inj) 0 ml IV STAT PRN; Protocol PRN Reason: Hypoglycemia Protocol Dextrose (Glutose 15) 0 gm PO ONCE PRN; Protocol PRN Reason: Hypoglycemia Protocol Diphenhydramine HCl (Benadryl) 25 mg PO ONCE PRN PRN Reason: Insomnia Ergocalciferol (Drisdol 50,000 Intl Units Cap) 1 cap PO Q7D [facility] Last Admin: 09/14/18 10:57 Dose: 1 cap Ferric Sodium Gluconate Complex (Ferrlecit) 125 mg IVPB DAILY [facility] Stop: 09/26/18 12:46 Last Admin: 09/21/18 10:41 Dose: 125 mg Fluticasone Propionate (Flonase) 1 spr NS DAILY [facility] Last Admin: 09/21/18 10:42 Dose: 1 spr Folic Acid (Folic Acid) 1 mg PO DAILY [facility] Last Admin: 09/21/18 10:43 Dose: 1 mg Glucagon (Glucagen Diagnostic Kit) 0 mg IM STAT PRN; Protocol PRN Reason: Hypoglycemia Protocol Meropenem 500 mg/ Sodium (Chloride) 100 mls @ 100 mls/hr IVPB Q8H [facility]; Protocol Last Admin: 09/21/18 07:55 Dose: 100 mls/hr Insulin Human Regular (Novolin R) 0 unit SC ACHS [facility]; Protocol Last Admin: 09/21/18 07:37 Dose: Not Given Lidocaine (Lidoderm) 1 ea TD DAILY [facility] Last Admin: 09/21/18 10:41 Dose: 1 ea Lorazepam (Ativan) 0.5 mg PO Q6 PRN PRN Reason: Agitation Last Admin: 09/18/18 16:01 Dose: 0.5 mg Metoprolol Tartrate (Lopressor) 25 mg PO BID [facility] Last Admin: 09/21/18 10:43 Dose: 25 mg Mirtazapine (Remeron) 15 mg PO HS [facility] Last Admin: 09/20/18 21:22 Dose: 15 mg Multivitamins (Hexavitamin) 1 tab PO DAILY [facility] Last Admin: 09/21/18 10:42 Dose: 1 tab Nitroglycerin (Nitro-Bid 2% Oint) 1 ea TOP Q6 [facility] Last Admin: 09/21/18 06:15 Dose: 1 ea Ondansetron HCl (Zofran Inj) 4 mg IVP Q8 PRN PRN Reason: Nausea/Vomiting Last Admin: 09/20/18 16:57 Dose: 4 mg Pantoprazole Sodium (Protonix Ec Tab) 40 mg PO 0600 [facility] Last Admin: 09/21/18 06:15 Dose: 40 mg Quetiapine Fumarate (Seroquel) 50 mg PO HS [facility] Last Admin: 09/20/18 21:22 Dose: 50 mg Rosuvastatin Calcium (Crestor) 20 mg PO HS [facility] Last Admin: 09/20/18 21:22 Dose: 20 mg Tramadol HCl (Ultram) 50 mg PO Q6 PRN PRN Reason: Pain, moderate (4-7) Last Admin: 09/20/18 05:55 Dose: 50 mg Venlafaxine HCl (Effexor Xr) 150 mg PO DAILY [facility] Last Admin: 09/21/18 10:41 Dose: 150 mg Venlafaxine HCl (Effexor Xr) 37.5 mg PO DAILY [facility] Last Admin: 09/21/18 10:41 Dose: 37.5 mg - Labs Labs: 09/21/18 07:29 09/21/18 07:29 PT 14.5 SECONDS (9.7-12.2) H 09/13/18 19:59 INR 1.3 09/13/18 19:59 APTT 32 SECONDS (21-34) 09/13/18 19:59 - Head Exam Head Exam: ATRAUMATIC - Eye Exam Eye Exam: Normal appearance - ENT Exam ENT Exam: Mucous Membranes Dry - Respiratory Exam Respiratory Exam: NORMAL BREATHING PATTERN - Cardiovascular Exam Cardiovascular Exam: +S1, +S2 - GI/Abdominal Exam GI & Abdominal Exam: Normal Bowel Sounds Assessment and Plan (1) Pancytopenia Assessment & Plan: borderline iron and b12 deficiency; on supplementation f/u zing and copper levels counts stable Status: Acute
--- NOTE | 2018-09-21 14:00 | CP.PCM.PN ---
Subjective - Date & Time of Evaluation Date of Evaluation: 09/21/18 Time of Evaluation: 14:00 - Subjective Subjective: GEN WEAKNESS AND BODY PAIN FEBRILE P/E SAME CONT IV AB Objective - Vital Signs/Intake and Output Vital Signs (last 24 hours): Temp Pulse Resp BP Pulse Ox 98 F 63 20 116/73 94 L 09/21/18 07:00 09/21/18 07:00 09/21/18 07:00 09/21/18 10:43 09/21/18 07:00 - Medications Medications: Current Medications Acetaminophen (Tylenol 325mg Tab) 650 mg PO Q6 PRN PRN Reason: pain Last Admin: 09/20/18 14:12 Dose: 650 mg Aspirin (Ecotrin) 81 mg PO DAILY [facility] Last Admin: 09/21/18 10:42 Dose: 81 mg Clonazepam (Klonopin) 0.5 mg PO TID [facility] Last Admin: 09/21/18 13:41 Dose: 0.5 mg Dextrose (Dextrose 50% Inj) 0 ml IV STAT PRN; Protocol PRN Reason: Hypoglycemia Protocol Dextrose (Glutose 15) 0 gm PO ONCE PRN; Protocol PRN Reason: Hypoglycemia Protocol Diphenhydramine HCl (Benadryl) 25 mg PO ONCE PRN PRN Reason: Insomnia Ergocalciferol (Drisdol 50,000 Intl Units Cap) 1 cap PO Q7D [facility] Last Admin: 09/14/18 10:57 Dose: 1 cap Ferric Sodium Gluconate Complex (Ferrlecit) 125 mg IVPB DAILY [facility] Stop: 09/26/18 12:46 Last Admin: 09/21/18 10:41 Dose: 125 mg Fluticasone Propionate (Flonase) 1 spr NS DAILY [facility] Last Admin: 09/21/18 10:42 Dose: 1 spr Folic Acid (Folic Acid) 1 mg PO DAILY [facility] Last Admin: 09/21/18 10:43 Dose: 1 mg Glucagon (Glucagen Diagnostic Kit) 0 mg IM STAT PRN; Protocol PRN Reason: Hypoglycemia Protocol Meropenem 500 mg/ Sodium (Chloride) 100 mls @ 100 mls/hr IVPB Q8H [facility]; Protocol Last Admin: 09/21/18 07:55 Dose: 100 mls/hr Insulin Human Regular (Novolin R) 0 unit SC ACHS [facility]; Protocol Last Admin: 09/21/18 07:37 Dose: Not Given Lidocaine (Lidoderm) 1 ea TD DAILY [facility] Last Admin: 09/21/18 10:41 Dose: 1 ea Lorazepam (Ativan) 0.5 mg PO Q6 PRN PRN Reason: Agitation Last Admin: 09/18/18 16:01 Dose: 0.5 mg Metoprolol Tartrate (Lopressor) 25 mg PO BID [facility] Last Admin: 09/21/18 10:43 Dose: 25 mg Mirtazapine (Remeron) 15 mg PO HS [facility] Last Admin: 09/20/18 21:22 Dose: 15 mg Multivitamins (Hexavitamin) 1 tab PO DAILY [facility] Last Admin: 09/21/18 10:42 Dose: 1 tab Nitroglycerin (Nitro-Bid 2% Oint) 1 ea TOP Q6 [facility] Last Admin: 09/21/18 13:00 Dose: 1 ea Ondansetron HCl (Zofran Inj) 4 mg IVP Q8 PRN PRN Reason: Nausea/Vomiting Last Admin: 09/20/18 16:57 Dose: 4 mg Pantoprazole Sodium (Protonix Ec Tab) 40 mg PO 0600 [facility] Last Admin: 09/21/18 06:15 Dose: 40 mg Quetiapine Fumarate (Seroquel) 50 mg PO HS [facility] Last Admin: 09/20/18 21:22 Dose: 50 mg Rosuvastatin Calcium (Crestor) 20 mg PO HS [facility] Last Admin: 09/20/18 21:22 Dose: 20 mg Tramadol HCl (Ultram) 50 mg PO Q6 PRN PRN Reason: Pain, moderate (4-7) Last Admin: 09/20/18 05:55 Dose: 50 mg Venlafaxine HCl (Effexor Xr) 150 mg PO DAILY [facility] Last Admin: 09/21/18 10:41 Dose: 150 mg Venlafaxine HCl (Effexor Xr) 37.5 mg PO DAILY [facility] Last Admin: 09/21/18 10:41 Dose: 37.5 mg - Labs Labs: 09/21/18 07:29 09/21/18 07:29 PT 14.5 SECONDS (9.7-12.2) H 09/13/18 19:59 INR 1.3 09/13/18 19:59 APTT 32 SECONDS (21-34) 09/13/18 19:59 Assessment and Plan (1) Chest pain Status: Acute (2) Multiple sclerosis Status: Acute (3) Panic disorder Status: Chronic
--- NOTE | 2018-09-21 20:42 | CP.PCM.PN ---
Subjective - Date & Time of Evaluation Date of Evaluation: 09/21/18 Time of Evaluation: 20:42 - Subjective Subjective: AFEBRILE, VSS. C/O SUBJECTIVE FEVERS BACK PAIN/RT FLANK PAIN IMPROVING HEMATOLOGY ON BOARD ON IV ABX. LABS ; URINE CULTURE +VE KLEIBSIELLA PN.-PANSENSITIVE. 09/16/18 BLOOD CULTURES -VE TO DATE Objective - Vital Signs/Intake and Output Vital Signs (last 24 hours): Temp Pulse Resp BP Pulse Ox 98 F 63 20 147/80 94 L 09/21/18 07:00 09/21/18 07:00 09/21/18 07:00 09/21/18 18:02 09/21/18 07:00 Intake and Output: 09/21/18 09/22/18 18:59 06:59 Intake Total 450 Balance 450 - Medications Medications: Current Medications Acetaminophen (Tylenol 325mg Tab) 650 mg PO Q6 PRN PRN Reason: pain Last Admin: 09/20/18 14:12 Dose: 650 mg Aspirin (Ecotrin) 81 mg PO DAILY [facility] Last Admin: 09/21/18 10:42 Dose: 81 mg Clonazepam (Klonopin) 0.5 mg PO TID [facility] Last Admin: 09/21/18 18:01 Dose: 0.5 mg Dextrose (Dextrose 50% Inj) 0 ml IV STAT PRN; Protocol PRN Reason: Hypoglycemia Protocol Dextrose (Glutose 15) 0 gm PO ONCE PRN; Protocol PRN Reason: Hypoglycemia Protocol Diphenhydramine HCl (Benadryl) 25 mg PO ONCE PRN PRN Reason: Insomnia Ergocalciferol (Drisdol 50,000 Intl Units Cap) 1 cap PO Q7D [facility] Last Admin: 09/14/18 10:57 Dose: 1 cap Ferric Sodium Gluconate Complex (Ferrlecit) 125 mg IVPB DAILY [facility] Stop: 09/26/18 12:46 Last Admin: 09/21/18 10:41 Dose: 125 mg Fluticasone Propionate (Flonase) 1 spr NS DAILY [facility] Last Admin: 09/21/18 10:42 Dose: 1 spr Folic Acid (Folic Acid) 1 mg PO DAILY [facility] Last Admin: 09/21/18 10:43 Dose: 1 mg Glucagon (Glucagen Diagnostic Kit) 0 mg IM STAT PRN; Protocol PRN Reason: Hypoglycemia Protocol Meropenem 500 mg/ Sodium (Chloride) 100 mls @ 100 mls/hr IVPB Q8H [facility]; Protocol Last Admin: 09/21/18 17:05 Dose: 100 mls/hr Insulin Human Regular (Novolin R) 0 unit SC ACHS [facility]; Protocol Last Admin: 09/21/18 18:07 Dose: Not Given Lidocaine (Lidoderm) 1 ea TD DAILY [facility] Last Admin: 09/21/18 10:41 Dose: 1 ea Lorazepam (Ativan) 0.5 mg PO Q6 PRN PRN Reason: Agitation Last Admin: 09/18/18 16:01 Dose: 0.5 mg Metoprolol Tartrate (Lopressor) 25 mg PO BID [facility] Last Admin: 09/21/18 18:02 Dose: 25 mg Mirtazapine (Remeron) 15 mg PO HS [facility] Last Admin: 09/20/18 21:22 Dose: 15 mg Multivitamins (Hexavitamin) 1 tab PO DAILY [facility] Last Admin: 09/21/18 10:42 Dose: 1 tab Nitroglycerin (Nitro-Bid 2% Oint) 1 ea TOP Q6 [facility] Last Admin: 09/21/18 18:01 Dose: 1 ea Ondansetron HCl (Zofran Inj) 4 mg IVP Q8 PRN PRN Reason: Nausea/Vomiting Last Admin: 09/20/18 16:57 Dose: 4 mg Pantoprazole Sodium (Protonix Ec Tab) 40 mg PO 0600 [facility] Last Admin: 09/21/18 06:15 Dose: 40 mg Quetiapine Fumarate (Seroquel) 50 mg PO HS [facility] Last Admin: 09/20/18 21:22 Dose: 50 mg Rosuvastatin Calcium (Crestor) 20 mg PO HS [facility] Last Admin: 09/20/18 21:22 Dose: 20 mg Tramadol HCl (Ultram) 50 mg PO Q6 PRN PRN Reason: Pain, moderate (4-7) Last Admin: 09/21/18 18:01 Dose: 50 mg Venlafaxine HCl (Effexor Xr) 150 mg PO DAILY [facility] Last Admin: 09/21/18 10:41 Dose: 150 mg Venlafaxine HCl (Effexor Xr) 37.5 mg PO DAILY [facility] Last Admin: 09/21/18 10:41 Dose: 37.5 mg - Labs Labs: 09/21/18 07:29 09/21/18 07:29 PT 14.5 SECONDS (9.7-12.2) H 09/13/18 19:59 INR 1.3 09/13/18 19:59 APTT 32 SECONDS (21-34) 09/13/18 19:59 - Constitutional Appears: No Acute Distress - Eye Exam Eye Exam: EOMI, PERRL - ENT Exam ENT Exam: Normal Oropharynx - Neck Exam Neck Exam: Normal Inspection - Respiratory Exam Respiratory Exam: Clear to Ausculation Bilateral - Cardiovascular Exam Cardiovascular Exam: REGULAR RHYTHM, +S1, +S2 - GI/Abdominal Exam GI & Abdominal Exam: Soft, Tenderness (RT FLANK AND BACK.), Normal Bowel Sounds - Extremities Exam Extremities Exam: Normal Capillary Refill. absent: Calf Tenderness, Pedal Edema - Back Exam Back Exam: CVA tenderness (R). absent: vertebral tenderness - Neurological Exam Neurological Exam: Alert, Awake, CN II-XII Intact, Oriented x3, Reflexes Normal - Psychiatric Exam Psychiatric exam: Normal Mood - Skin Skin Exam: Normal Color, Warm Assessment and Plan (1) UTI (urinary tract infection) Status: Acute (2) Pancytopenia Status: Acute (3) Chest pain Status: Acute (4) Multiple sclerosis Status: Acute (5) Diabetes mellitus Status: Acute (6) Depression Status: Chronic - Assessment and Plan (Free Text) Plan: CONTINUE iv MERREM 500 MG EVERY 8 HOURLY 09/16/18. RENAL US - NOTED UNREMARKABLE. F/U REPEAT UA, URINE CULTURE -CLEAN CATCH. 09/20/18 PER CONSULTANTS/PMD. ANAEMIA RX PER DR TOBIAS. CASE DISCUSSED WITH THE STAFF.
[2018-09-22] MEDS: Nitroglycerin 2% Ointment Foilpak UD TOP SCH ×5 (00:51→23:55)
[2018-09-22] MEDS: Meropenem 500 MG in Sodium Chloride 0.9% 100 ML IVPB SCH ×4 (00:51→23:56)
[2018-09-22] MEDS: Pantoprazole 40 mg EC Tab PO SCH (05:17)
[2018-09-22] MEDS: (Novolin R) Insulin Human Regular 100 units/ml vial SC SCH ×4 (07:46→21:25)
[2018-09-22 08:40] LABS: BASO % 0.3 % (0.0-2.0); EOS # 0.1 K/uL (0.0-0.7); EOS % 2.9 % (0.0-4.0); HEMOGLOBIN 10.4 g/dL (11.0-16.0); LYMPH # 1.1 K/uL (1.0-4.3); LYMPH % 42.2 % (20.0-40.0); MEAN CELL VOLUME 92.9 fL (81.0-99.0); MEAN CORPUSCULAR HEMOGLOBIN 30.1 pg (27.0-31.0); MEAN CORPUSCULAR HGB CONC 32.4 g/dL (33.0-37.0); MONO # 0.3 K/uL (0.0-0.8); MONO % 9.7 % (0.0-10.0); NEUT # 1.2 K/uL (1.8-7.0); NEUT % 44.9 % (50.0-75.0); NRBC % 0.1 % (0.0-2.0); RBC 3.45 Mil/uL (3.80-5.20); RED CELL DISTRIBUTION WIDTH 13.6 % (11.5-14.5); WHITE BLOOD COUNT 2.6 K/uL (4.8-10.8)
[2018-09-22 08:52] LABS: ALB/GLOB RATIO 1.2 (1.0-2.1); ALBUMIN 3.4 g/dL (3.5-5.0); ALT/SGPT 24 U/L (9-52); AST/SGOT 43 U/L (14-36); BLOOD UREA NITROGEN 15 mg/dL (7-17); GFR NON-AFRICAN AMERICAN > 60
[2018-09-22] MEDS: Venlafaxine 150 mg ER Cap PO SCH (10:12)
[2018-09-22] MEDS: Multiple Vitamins Tab PO SCH (10:12)
[2018-09-22] MEDS: Lidocaine 5% Patch TD SCH (10:12)
[2018-09-22] MEDS: Venlafaxine 37.5 mg ER Cap PO SCH (10:13)
[2018-09-22] MEDS: Ferric Sodium Gluconat Complex 62.5 mg/5 ml Vial IVPB SCH (10:13)
[2018-09-22] MEDS: Fluticasone Nasal 50 mcg/Spray NS SCH (10:29)
--- NOTE | 2018-09-22 12:44 | CP.PCM.PN ---
Subjective - Date & Time of Evaluation Date of Evaluation: 09/22/18 Time of Evaluation: 12:44 - Subjective Subjective: GEN WEAKNESS AND BODY PAIN FEBRILE P/E SAME CONT IV AB Objective - Vital Signs/Intake and Output Vital Signs (last 24 hours): Temp Pulse Resp BP Pulse Ox 98.3 F 63 20 145/92 H 96 09/22/18 07:00 09/22/18 07:00 09/22/18 07:00 09/22/18 12:30 09/22/18 07:00 Intake and Output: 09/22/18 09/22/18 11:59 23:59 Intake Total 100 Balance 100 - Medications Medications: Current Medications Acetaminophen (Tylenol 325mg Tab) 650 mg PO Q6 PRN PRN Reason: pain Last Admin: 09/20/18 14:12 Dose: 650 mg Aspirin (Ecotrin) 81 mg PO DAILY [facility] Last Admin: 09/22/18 10:12 Dose: 81 mg Clonazepam (Klonopin) 0.5 mg PO TID [facility] Last Admin: 09/22/18 10:12 Dose: 0.5 mg Dextrose (Dextrose 50% Inj) 0 ml IV STAT PRN; Protocol PRN Reason: Hypoglycemia Protocol Dextrose (Glutose 15) 0 gm PO ONCE PRN; Protocol PRN Reason: Hypoglycemia Protocol Diphenhydramine HCl (Benadryl) 25 mg PO ONCE PRN PRN Reason: Insomnia Last Admin: 09/21/18 21:20 Dose: 25 mg Ergocalciferol (Drisdol 50,000 Intl Units Cap) 1 cap PO Q7D [facility] Last Admin: 09/14/18 10:57 Dose: 1 cap Ferric Sodium Gluconate Complex (Ferrlecit) 125 mg IVPB DAILY [facility] Stop: 09/26/18 12:46 Last Admin: 09/22/18 10:13 Dose: 125 mg Fluticasone Propionate (Flonase) 1 spr NS DAILY [facility] Last Admin: 09/22/18 10:29 Dose: Not Given Folic Acid (Folic Acid) 1 mg PO DAILY [facility] Last Admin: 09/22/18 10:12 Dose: 1 mg Glucagon (Glucagen Diagnostic Kit) 0 mg IM STAT PRN; Protocol PRN Reason: Hypoglycemia Protocol Meropenem 500 mg/ Sodium (Chloride) 100 mls @ 100 mls/hr IVPB Q8H [facility]; Protocol Last Admin: 09/22/18 08:43 Dose: 100 mls/hr Insulin Human Regular (Novolin R) 0 unit SC ACHS [facility]; Protocol Last Admin: 09/22/18 12:09 Dose: Not Given Lidocaine (Lidoderm) 1 ea TD DAILY [facility] Last Admin: 09/22/18 10:12 Dose: 1 ea Lorazepam (Ativan) 0.5 mg PO Q6 PRN PRN Reason: Agitation Last Admin: 09/21/18 22:52 Dose: 0.5 mg Metoprolol Tartrate (Lopressor) 25 mg PO BID [facility] Last Admin: 09/22/18 10:12 Dose: 25 mg Mirtazapine (Remeron) 15 mg PO HS [facility] Last Admin: 09/21/18 21:20 Dose: 15 mg Multivitamins (Hexavitamin) 1 tab PO DAILY [facility] Last Admin: 09/22/18 10:12 Dose: 1 tab Nitroglycerin (Nitro-Bid 2% Oint) 1 ea TOP Q6 [facility] Last Admin: 09/22/18 12:27 Dose: 1 ea Ondansetron HCl (Zofran Inj) 4 mg IVP Q8 PRN PRN Reason: Nausea/Vomiting Last Admin: 09/21/18 21:19 Dose: 4 mg Pantoprazole Sodium (Protonix Ec Tab) 40 mg PO 0600 [facility] Last Admin: 09/22/18 05:17 Dose: 40 mg Quetiapine Fumarate (Seroquel) 50 mg PO HS [facility] Last Admin: 09/21/18 21:20 Dose: 50 mg Rosuvastatin Calcium (Crestor) 20 mg PO HS [facility] Last Admin: 09/21/18 21:20 Dose: 20 mg Tramadol HCl (Ultram) 50 mg PO Q6 PRN PRN Reason: Pain, moderate (4-7) Last Admin: 09/21/18 18:01 Dose: 50 mg Venlafaxine HCl (Effexor Xr) 150 mg PO DAILY [facility] Last Admin: 09/22/18 10:12 Dose: 150 mg Venlafaxine HCl (Effexor Xr) 37.5 mg PO DAILY [facility] Last Admin: 09/22/18 10:13 Dose: 37.5 mg - Labs Labs: 09/22/18 08:26 09/22/18 08:26 PT 14.5 SECONDS (9.7-12.2) H 09/13/18 19:59 INR 1.3 09/13/18 19:59 APTT 32 SECONDS (21-34) 09/13/18 19:59 Assessment and Plan (1) Chest pain Status: Acute (2) Multiple sclerosis Status: Acute (3) Panic disorder Status: Chronic
[2018-09-22] MEDS: Oxycodone/Acetaminophen 5/325 mg Tab PO PRN (21:24)
--- NOTE | 2018-09-22 23:09 | CP.PCM.PN ---
Subjective - Date & Time of Evaluation Date of Evaluation: 09/22/18 Time of Evaluation: 19:00 - Subjective Subjective: Has some back pain. Objective - Vital Signs/Intake and Output Vital Signs (last 24 hours): Temp Pulse Resp BP Pulse Ox 98.7 F 59 L 20 160/78 H 100 09/22/18 18:20 09/22/18 16:00 09/22/18 16:00 09/22/18 17:20 09/22/18 16:00 - Medications Medications: Current Medications Acetaminophen (Tylenol 325mg Tab) 650 mg PO Q6 PRN PRN Reason: pain Last Admin: 09/22/18 17:20 Dose: 650 mg Aspirin (Ecotrin) 81 mg PO DAILY [facility] Last Admin: 09/22/18 10:12 Dose: 81 mg Clonazepam (Klonopin) 0.5 mg PO TID [facility] Last Admin: 09/22/18 17:19 Dose: 0.5 mg Dextrose (Dextrose 50% Inj) 0 ml IV STAT PRN; Protocol PRN Reason: Hypoglycemia Protocol Dextrose (Glutose 15) 0 gm PO ONCE PRN; Protocol PRN Reason: Hypoglycemia Protocol Diphenhydramine HCl (Benadryl) 25 mg PO ONCE PRN PRN Reason: Insomnia Last Admin: 09/21/18 21:20 Dose: 25 mg Ergocalciferol (Drisdol 50,000 Intl Units Cap) 1 cap PO Q7D [facility] Last Admin: 09/14/18 10:57 Dose: 1 cap Ferric Sodium Gluconate Complex (Ferrlecit) 125 mg IVPB DAILY [facility] Stop: 09/26/18 12:46 Last Admin: 09/22/18 10:13 Dose: 125 mg Fluticasone Propionate (Flonase) 1 spr NS DAILY [facility] Last Admin: 09/22/18 10:29 Dose: Not Given Folic Acid (Folic Acid) 1 mg PO DAILY [facility] Last Admin: 09/22/18 10:12 Dose: 1 mg Glucagon (Glucagen Diagnostic Kit) 0 mg IM STAT PRN; Protocol PRN Reason: Hypoglycemia Protocol Meropenem 500 mg/ Sodium (Chloride) 100 mls @ 100 mls/hr IVPB Q8H [facility]; Protocol Last Admin: 09/22/18 17:15 Dose: 100 mls/hr Insulin Human Regular (Novolin R) 0 unit SC ACHS [facility]; Protocol Last Admin: 09/22/18 21:25 Dose: Not Given Lidocaine (Lidoderm) 1 ea TD DAILY [facility] Last Admin: 09/22/18 10:12 Dose: 1 ea Lorazepam (Ativan) 0.5 mg PO Q6 PRN PRN Reason: Agitation Last Admin: 09/21/18 22:52 Dose: 0.5 mg Metoprolol Tartrate (Lopressor) 25 mg PO BID [facility] Last Admin: 09/22/18 17:20 Dose: 25 mg Mirtazapine (Remeron) 15 mg PO HS [facility] Last Admin: 09/22/18 21:24 Dose: 15 mg Multivitamins (Hexavitamin) 1 tab PO DAILY [facility] Last Admin: 09/22/18 10:12 Dose: 1 tab Nitroglycerin (Nitro-Bid 2% Oint) 1 ea TOP Q6 [facility] Last Admin: 09/22/18 17:20 Dose: 1 ea Ondansetron HCl (Zofran Inj) 4 mg IVP Q8 PRN PRN Reason: Nausea/Vomiting Last Admin: 09/21/18 21:19 Dose: 4 mg Oxycodone/Acetaminophen (Percocet 5/325 Mg Tab) 1 tab PO Q8H PRN PRN Reason: Pain, severe (8-10) Stop: 09/25/18 20:42 Last Admin: 09/22/18 21:24 Dose: 1 tab Pantoprazole Sodium (Protonix Ec Tab) 40 mg PO 0600 [facility] Last Admin: 09/22/18 05:17 Dose: 40 mg Quetiapine Fumarate (Seroquel) 50 mg PO HS [facility] Last Admin: 09/22/18 21:24 Dose: 50 mg Rosuvastatin Calcium (Crestor) 20 mg PO HS [facility] Last Admin: 09/22/18 21:24 Dose: 20 mg Tramadol HCl (Ultram) 50 mg PO Q6 PRN PRN Reason: Pain, moderate (4-7) Last Admin: 09/22/18 17:19 Dose: 50 mg Venlafaxine HCl (Effexor Xr) 150 mg PO DAILY [facility] Last Admin: 09/22/18 10:12 Dose: 150 mg Venlafaxine HCl (Effexor Xr) 37.5 mg PO DAILY [facility] Last Admin: 09/22/18 10:13 Dose: 37.5 mg - Labs Labs: 09/22/18 08:26 03/16/19 08:26 PT 14.5 SECONDS (9.7-12.2) H 09/13/18 19:59 INR 1.3 09/13/18 19:59 APTT 32 SECONDS (21-34) 09/13/18 19:59 - Head Exam Head Exam: ATRAUMATIC - Eye Exam Eye Exam: Normal appearance - ENT Exam ENT Exam: Mucous Membranes Dry - Respiratory Exam Respiratory Exam: NORMAL BREATHING PATTERN - Cardiovascular Exam Cardiovascular Exam: +S1, +S2 - GI/Abdominal Exam GI & Abdominal Exam: Normal Bowel Sounds Assessment and Plan (1) Pancytopenia Assessment & Plan: borderline iron and b12 deficiency; on supplementation f/u zing and copper levels counts stable Status: Acute
--- NOTE | 2018-09-22 23:11 | CP.PCM.PN ---
Subjective - Date & Time of Evaluation Date of Evaluation: 09/22/18 Time of Evaluation: 23:11 - Subjective Subjective: AFEBRILE, VSS. STATES BACK / AND FLANK PAIN IMPROVING LABS; REVIEWED REPEAT URINE CULTURE 09/20/18-NEGATIVE GROWTH. Objective - Vital Signs/Intake and Output Vital Signs (last 24 hours): Temp Pulse Resp BP Pulse Ox 98.7 F 59 L 20 160/78 H 100 09/22/18 18:20 09/22/18 16:00 09/22/18 16:00 09/22/18 17:20 09/22/18 16:00 - Medications Medications: Current Medications Acetaminophen (Tylenol 325mg Tab) 650 mg PO Q6 PRN PRN Reason: pain Last Admin: 09/22/18 17:20 Dose: 650 mg Aspirin (Ecotrin) 81 mg PO DAILY [facility] Last Admin: 09/22/18 10:12 Dose: 81 mg Clonazepam (Klonopin) 0.5 mg PO TID [facility] Last Admin: 09/22/18 17:19 Dose: 0.5 mg Dextrose (Dextrose 50% Inj) 0 ml IV STAT PRN; Protocol PRN Reason: Hypoglycemia Protocol Dextrose (Glutose 15) 0 gm PO ONCE PRN; Protocol PRN Reason: Hypoglycemia Protocol Diphenhydramine HCl (Benadryl) 25 mg PO ONCE PRN PRN Reason: Insomnia Last Admin: 09/21/18 21:20 Dose: 25 mg Ergocalciferol (Drisdol 50,000 Intl Units Cap) 1 cap PO Q7D [facility] Last Admin: 09/14/18 10:57 Dose: 1 cap Ferric Sodium Gluconate Complex (Ferrlecit) 125 mg IVPB DAILY [facility] Stop: 09/26/18 12:46 Last Admin: 09/22/18 10:13 Dose: 125 mg Fluticasone Propionate (Flonase) 1 spr NS DAILY [facility] Last Admin: 09/22/18 10:29 Dose: Not Given Folic Acid (Folic Acid) 1 mg PO DAILY [facility] Last Admin: 09/22/18 10:12 Dose: 1 mg Glucagon (Glucagen Diagnostic Kit) 0 mg IM STAT PRN; Protocol PRN Reason: Hypoglycemia Protocol Meropenem 500 mg/ Sodium (Chloride) 100 mls @ 100 mls/hr IVPB Q8H [facility]; Protocol Last Admin: 03/16/19 17:15 Dose: 100 mls/hr Insulin Human Regular (Novolin R) 0 unit SC [facility]; Protocol Last Admin: 09/22/18 21:25 Dose: Not Given Lidocaine (Lidoderm) 1 ea TD DAILY [facility] Last Admin: 09/22/18 10:12 Dose: 1 ea Lorazepam (Ativan) 0.5 mg PO Q6 PRN PRN Reason: Agitation Last Admin: 09/21/18 22:52 Dose: 0.5 mg Metoprolol Tartrate (Lopressor) 25 mg PO BID [facility] Last Admin: 09/22/18 17:20 Dose: 25 mg Mirtazapine (Remeron) 15 mg PO HS [facility] Last Admin: 09/22/18 21:24 Dose: 15 mg Multivitamins (Hexavitamin) 1 tab PO DAILY [facility] Last Admin: 09/22/18 10:12 Dose: 1 tab Nitroglycerin (Nitro-Bid 2% Oint) 1 ea TOP Q6 [facility] Last Admin: 09/22/18 17:20 Dose: 1 ea Ondansetron HCl (Zofran Inj) 4 mg IVP Q8 PRN PRN Reason: Nausea/Vomiting Last Admin: 09/21/18 21:19 Dose: 4 mg Oxycodone/Acetaminophen (Percocet 5/325 Mg Tab) 1 tab PO Q8H PRN PRN Reason: Pain, severe (8-10) Stop: 09/25/18 20:42 Last Admin: 09/22/18 21:24 Dose: 1 tab Pantoprazole Sodium (Protonix Ec Tab) 40 mg PO 0600 [facility] Last Admin: 09/22/18 05:17 Dose: 40 mg Quetiapine Fumarate (Seroquel) 50 mg PO [facility] Last Admin: 09/22/18 21:24 Dose: 50 mg Rosuvastatin Calcium (Crestor) 20 mg PO HS [facility] Last Admin: 09/22/18 21:24 Dose: 20 mg Tramadol HCl (Ultram) 50 mg PO Q6 PRN PRN Reason: Pain, moderate (4-7) Last Admin: 09/22/18 17:19 Dose: 50 mg Venlafaxine HCl (Effexor Xr) 150 mg PO DAILY [facility] Last Admin: 09/22/18 10:12 Dose: 150 mg Venlafaxine HCl (Effexor Xr) 37.5 mg PO DAILY [facility] Last Admin: 09/22/18 10:13 Dose: 37.5 mg - Labs Labs: 09/22/18 08:26 09/22/18 08:26 PT 14.5 SECONDS (9.7-12.2) H 09/13/18 19:59 INR 1.3 09/13/18 19:59 APTT 32 SECONDS (21-34) 09/13/18 19:59 - Constitutional Appears: No Acute Distress - Head Exam Head Exam: NORMAL INSPECTION - Eye Exam Eye Exam: EOMI, PERRL - ENT Exam ENT Exam: Normal Oropharynx - Neck Exam Neck Exam: Normal Inspection - Respiratory Exam Respiratory Exam: Clear to Ausculation Bilateral, NORMAL BREATHING PATTERN - Cardiovascular Exam Cardiovascular Exam: REGULAR RHYTHM, +S1, +S2 - GI/Abdominal Exam GI & Abdominal Exam: Soft, Normal Bowel Sounds. absent: Tenderness - Extremities Exam Extremities Exam: Normal Capillary Refill. absent: Calf Tenderness, Pedal Edema - Back Exam Back Exam: absent: CVA tenderness (L), CVA tenderness (R) - Neurological Exam Neurological Exam: Alert, Awake, CN II-XII Intact, Oriented x3, Reflexes Normal - Psychiatric Exam Psychiatric exam: Normal Mood - Skin Skin Exam: Normal Color, Warm Assessment and Plan (1) UTI (urinary tract infection) Status: Acute (2) Pancytopenia Status: Acute (3) Chest pain Status: Acute (4) Multiple sclerosis Status: Acute (5) Diabetes mellitus Status: Acute (6) Depression Status: Chronic - Assessment and Plan (Free Text) Plan: CONTINUE iv MERREM 500 MG EVERY 8 HOURLY 09/16/18. Repeat urine culture negative so far. PER CONSULTANTS/PMD. ANAEMIA RX PER DR TOBIAS.REMAINS PANCYTOPENIC CASE DISCUSSED WITH THE STAFF/ PMD.
[2018-09-23] MEDS: Nitroglycerin 2% Ointment Foilpak UD TOP SCH ×3 (05:24→17:29)
[2018-09-23] MEDS: Pantoprazole 40 mg EC Tab PO SCH (05:29)
[2018-09-23] MEDS: (Novolin R) Insulin Human Regular 100 units/ml vial SC SCH ×4 (07:35→21:16)
[2018-09-23] MEDS: Meropenem 500 MG in Sodium Chloride 0.9% 100 ML IVPB SCH ×2 (08:00→17:00)
[2018-09-23 09:19] LABS: BASO % 0.4 % (0.0-2.0); EOS # 0.1 K/uL (0.0-0.7); EOS % 3.4 % (0.0-4.0); HEMOGLOBIN 10.4 g/dL (11.0-16.0); LYMPH # 1.3 K/uL (1.0-4.3); LYMPH % 38.9 % (20.0-40.0); MEAN CELL VOLUME 92.3 fL (81.0-99.0); MEAN CORPUSCULAR HEMOGLOBIN 29.6 pg (27.0-31.0); MEAN PLATELET VOLUME 9.7 fL (7.2-11.7); MONO # 0.3 K/uL (0.0-0.8); MONO % 8.6 % (0.0-10.0); NEUT # 1.6 K/uL (1.8-7.0); NEUT % 48.7 % (50.0-75.0); PLATELET COUNT 153 K/uL (130-400); RBC 3.53 Mil/uL (3.80-5.20); RED CELL DISTRIBUTION WIDTH 13.4 % (11.5-14.5); WHITE BLOOD COUNT 3.4 K/uL (4.8-10.8)
[2018-09-23] MEDS: Ferric Sodium Gluconat Complex 62.5 mg/5 ml Vial IVPB SCH (09:30)
[2018-09-23] MEDS: Venlafaxine 150 mg ER Cap PO SCH (09:30)
[2018-09-23] MEDS: Multiple Vitamins Tab PO SCH (09:30)
[2018-09-23] MEDS: Venlafaxine 37.5 mg ER Cap PO SCH (09:30)
[2018-09-23] MEDS: Lidocaine 5% Patch TD SCH ×2 (09:32→10:02)
[2018-09-23 09:37] LABS: ALB/GLOB RATIO 1.3 (1.0-2.1); ALBUMIN 3.4 g/dL (3.5-5.0); ALT/SGPT 24 U/L (9-52); AST/SGOT 43 U/L (14-36); BLOOD UREA NITROGEN 20 mg/dL (7-17); CALCIUM 8.8 mg/dl (8.6-10.4); GFR NON-AFRICAN AMERICAN > 60
[2018-09-23] MEDS: Fluticasone Nasal 50 mcg/Spray NS SCH (10:01)
[2018-09-23] MEDS: Oxycodone/Acetaminophen 5/325 mg Tab PO PRN ×2 (11:48→20:00)
--- NOTE | 2018-09-23 12:30 | CP.PCM.PN ---
Subjective - Date & Time of Evaluation Date of Evaluation: 09/23/18 Time of Evaluation: 12:29 - Subjective Subjective: LOW BACK PAIN ON PERCOCET VS STABLE P/E TENDERNESS IN L/S , SLE 40 DEG. CONT IV AB Objective - Vital Signs/Intake and Output Vital Signs (last 24 hours): Temp Pulse Resp BP Pulse Ox 98.7 F 77 20 108/64 97 09/23/18 07:00 09/23/18 07:00 09/23/18 07:00 09/23/18 09:31 09/23/18 07:00 - Medications Medications: Current Medications Acetaminophen (Tylenol 325mg Tab) 650 mg PO Q6 PRN PRN Reason: pain Last Admin: 09/22/18 17:20 Dose: 650 mg Aspirin (Ecotrin) 81 mg PO DAILY [facility] Last Admin: 09/23/18 09:31 Dose: 81 mg Clonazepam (Klonopin) 0.5 mg PO TID [facility] Last Admin: 09/23/18 09:31 Dose: 0.5 mg Dextrose (Dextrose 50% Inj) 0 ml IV STAT PRN; Protocol PRN Reason: Hypoglycemia Protocol Dextrose (Glutose 15) 0 gm PO ONCE PRN; Protocol PRN Reason: Hypoglycemia Protocol Diphenhydramine HCl (Benadryl) 25 mg PO ONCE PRN PRN Reason: Insomnia Last Admin: 09/21/18 21:20 Dose: 25 mg Ergocalciferol (Drisdol 50,000 Intl Units Cap) 1 cap PO Q7D [facility] Last Admin: 09/14/18 10:57 Dose: 1 cap Ferric Sodium Gluconate Complex (Ferrlecit) 125 mg IVPB DAILY [facility] Stop: 09/26/18 12:46 Last Admin: 09/23/18 09:30 Dose: 125 mg Fluticasone Propionate (Flonase) 1 spr NS DAILY [facility] Last Admin: 09/23/18 10:01 Dose: Not Given Folic Acid (Folic Acid) 1 mg PO DAILY [facility] Last Admin: 09/23/18 09:31 Dose: 1 mg Glucagon (Glucagen Diagnostic Kit) 0 mg IM STAT PRN; Protocol PRN Reason: Hypoglycemia Protocol Meropenem 500 mg/ Sodium (Chloride) 100 mls @ 100 mls/hr IVPB Q8H [facility]; Protocol Last Admin: 09/23/18 08:00 Dose: Not Given Insulin Human Regular (Novolin R) 0 unit SC [facility]; Protocol Last Admin: 09/23/18 11:49 Dose: Not Given Lidocaine (Lidoderm) 1 ea TD DAILY [facility] Last Admin: 09/23/18 10:02 Dose: Not Given Lorazepam (Ativan) 0.5 mg PO Q6 PRN PRN Reason: Agitation Last Admin: 09/21/18 22:52 Dose: 0.5 mg Metoprolol Tartrate (Lopressor) 25 mg PO BID [facility] Last Admin: 09/23/18 09:31 Dose: 25 mg Mirtazapine (Remeron) 15 mg PO HS [facility] Last Admin: 09/22/18 21:24 Dose: 15 mg Multivitamins (Hexavitamin) 1 tab PO DAILY [facility] Last Admin: 09/23/18 09:30 Dose: 1 tab Nitroglycerin (Nitro-Bid 2% Oint) 1 ea TOP Q6 [facility] Last Admin: 09/23/18 05:24 Dose: 1 ea Ondansetron HCl (Zofran Inj) 4 mg IVP Q8 PRN PRN Reason: Nausea/Vomiting Last Admin: 09/21/18 21:19 Dose: 4 mg Oxycodone/Acetaminophen (Percocet 5/325 Mg Tab) 1 tab PO Q8H PRN PRN Reason: Pain, severe (8-10) Stop: 09/25/18 20:42 Last Admin: 09/23/18 11:48 Dose: 1 tab Pantoprazole Sodium (Protonix Ec Tab) 40 mg PO 0600 [facility] Last Admin: 09/23/18 05:29 Dose: 40 mg Quetiapine Fumarate (Seroquel) 50 mg PO [facility] Last Admin: 09/22/18 21:24 Dose: 50 mg Rosuvastatin Calcium (Crestor) 20 mg PO HS [facility] Last Admin: 09/22/18 21:24 Dose: 20 mg Tramadol HCl (Ultram) 50 mg PO Q6 PRN PRN Reason: Pain, moderate (4-7) Last Admin: 09/22/18 17:19 Dose: 50 mg Venlafaxine HCl (Effexor Xr) 150 mg PO DAILY [facility] Last Admin: 09/23/18 09:30 Dose: 150 mg Venlafaxine HCl (Effexor Xr) 37.5 mg PO DAILY [facility] Last Admin: 09/23/18 09:30 Dose: 37.5 mg - Labs Labs: 09/23/18 09:08 09/23/18 09:08 PT 14.5 SECONDS (9.7-12.2) H 09/13/18 19:59 INR 1.3 09/13/18 19:59 APTT 32 SECONDS (21-34) 09/13/18 19:59 Assessment and Plan (1) Chest pain Status: Acute (2) Multiple sclerosis Status: Acute (3) Panic disorder Status: Chronic
[2018-09-24] MEDS: Nitroglycerin 2% Ointment Foilpak UD TOP SCH ×6 (00:06→23:57)
[2018-09-24] MEDS: Meropenem 500 MG in Sodium Chloride 0.9% 100 ML IVPB SCH ×4 (00:07→23:55)
[2018-09-24] MEDS: Pantoprazole 40 mg EC Tab PO SCH (05:35)
[2018-09-24] MEDS: (Novolin R) Insulin Human Regular 100 units/ml vial SC SCH ×4 (07:36→21:14)
[2018-09-24 07:43] LABS: BASO % 0.4 % (0.0-2.0); EOS # 0.1 K/uL (0.0-0.7); EOS % 3.4 % (0.0-4.0); HEMOGLOBIN 10.7 g/dL (11.0-16.0); LYMPH # 1.2 K/uL (1.0-4.3); LYMPH % 36.6 % (20.0-40.0); MEAN CELL VOLUME 91.6 fL (81.0-99.0); MEAN CORPUSCULAR HEMOGLOBIN 30.4 pg (27.0-31.0); MEAN CORPUSCULAR HGB CONC 33.1 g/dL (33.0-37.0); MEAN PLATELET VOLUME 9.6 fL (7.2-11.7); MONO # 0.2 K/uL (0.0-0.8); MONO % 7.4 % (0.0-10.0); NEUT # 1.7 K/uL (1.8-7.0); NEUT % 52.2 % (50.0-75.0); RBC 3.53 Mil/uL (3.80-5.20); RED CELL DISTRIBUTION WIDTH 13.6 % (11.5-14.5); WHITE BLOOD COUNT 3.2 K/uL (4.8-10.8)
[2018-09-24] MEDS: Oxycodone/Acetaminophen 5/325 mg Tab PO PRN ×2 (07:46→15:57)
[2018-09-24 08:19] LABS: ALB/GLOB RATIO 1.3 (1.0-2.1); ALBUMIN 3.6 g/dL (3.5-5.0); ALT/SGPT 22 U/L (9-52); AST/SGOT 48 U/L (14-36); BLOOD UREA NITROGEN 15 mg/dL (7-17); CALCIUM 9.1 mg/dl (8.6-10.4); GFR NON-AFRICAN AMERICAN > 60
[2018-09-24] MEDS: Venlafaxine 150 mg ER Cap PO SCH (09:25)
[2018-09-24] MEDS: Venlafaxine 37.5 mg ER Cap PO SCH (09:25)
[2018-09-24] MEDS: Multiple Vitamins Tab PO SCH (09:26)
[2018-09-24] MEDS: Ferric Sodium Gluconat Complex 62.5 mg/5 ml Vial IVPB SCH (09:26)
[2018-09-24] MEDS: Lidocaine 5% Patch TD SCH (09:27)
[2018-09-24] MEDS: Fluticasone Nasal 50 mcg/Spray NS SCH (09:27)
--- NOTE | 2018-09-24 11:57 | CP.PCM.PN ---
Subjective - Date & Time of Evaluation Date of Evaluation: 09/24/18 Time of Evaluation: 11:57 - Subjective Subjective: LESS PAIN ON IV AB LABS OK FOR REH[facility] Objective - Vital Signs/Intake and Output Vital Signs (last 24 hours): Temp Pulse Resp BP Pulse Ox 98.2 F 60 20 122/80 96 09/24/18 07:00 09/24/18 11:28 09/24/18 07:00 09/24/18 11:28 09/24/18 07:00 Intake and Output: 09/23/18 09/24/18 23:59 11:59 Intake Total 600 Balance 600 - Medications Medications: Current Medications Acetaminophen (Tylenol 325mg Tab) 650 mg PO Q6 PRN PRN Reason: pain Last Admin: 09/22/18 17:20 Dose: 650 mg Aspirin (Ecotrin) 81 mg PO DAILY [facility] Last Admin: 09/24/18 09:26 Dose: 81 mg Clonazepam (Klonopin) 0.5 mg PO TID [facility] Last Admin: 09/24/18 09:26 Dose: 0.5 mg Dextrose (Dextrose 50% Inj) 0 ml IV STAT PRN; Protocol PRN Reason: Hypoglycemia Protocol Dextrose (Glutose 15) 0 gm PO ONCE PRN; Protocol PRN Reason: Hypoglycemia Protocol Diphenhydramine HCl (Benadryl) 25 mg PO ONCE PRN PRN Reason: Insomnia Last Admin: 09/21/18 21:20 Dose: 25 mg Ergocalciferol (Drisdol 50,000 Intl Units Cap) 1 cap PO Q7D [facility] Last Admin: 09/14/18 10:57 Dose: 1 cap Ferric Sodium Gluconate Complex (Ferrlecit) 125 mg IVPB DAILY [facility] Stop: 09/26/18 12:46 Last Admin: 09/24/18 09:26 Dose: 125 mg Fluticasone Propionate (Flonase) 1 spr NS DAILY [facility] Last Admin: 09/24/18 09:27 Dose: 1 spr Folic Acid (Folic Acid) 1 mg PO DAILY [facility] Last Admin: 09/24/18 09:26 Dose: 1 mg Glucagon (Glucagen Diagnostic Kit) 0 mg IM STAT PRN; Protocol PRN Reason: Hypoglycemia Protocol Meropenem 500 mg/ Sodium (Chloride) 100 mls @ 100 mls/hr IVPB Q8H [facility]; Protocol Last Admin: 09/24/18 07:45 Dose: 100 mls/hr Insulin Human Regular (Novolin R) 0 unit SC [facility]; Protocol Last Admin: 09/24/18 11:55 Dose: Not Given Lidocaine (Lidoderm) 1 ea TD DAILY [facility] Last Admin: 09/24/18 09:27 Dose: 1 ea Lorazepam (Ativan) 0.5 mg PO Q6 PRN PRN Reason: Agitation Last Admin: 09/23/18 21:22 Dose: 0.5 mg Metoprolol Tartrate (Lopressor) 25 mg PO BID [facility] Last Admin: 09/24/18 09:27 Dose: 25 mg Mirtazapine (Remeron) 15 mg PO [facility] Last Admin: 09/23/18 21:22 Dose: 15 mg Multivitamins (Hexavitamin) 1 tab PO DAILY [facility] Last Admin: 09/24/18 09:26 Dose: 1 tab Nitroglycerin (Nitro-Bid 2% Oint) 1 ea TOP Q6 [facility] Last Admin: 09/24/18 11:26 Dose: Not Given Ondansetron HCl (Zofran Inj) 4 mg IVP Q8 PRN PRN Reason: Nausea/Vomiting Last Admin: 09/24/18 11:16 Dose: 4 mg Oxycodone/Acetaminophen (Percocet 5/325 Mg Tab) 1 tab PO Q8H PRN PRN Reason: Pain, severe (8-10) Stop: 09/25/18 20:42 Last Admin: 09/24/18 07:46 Dose: 1 tab Pantoprazole Sodium (Protonix Ec Tab) 40 mg PO 0600 [facility] Last Admin: 09/24/18 05:35 Dose: 40 mg Quetiapine Fumarate (Seroquel) 50 mg PO [facility] Last Admin: 09/23/18 21:22 Dose: 50 mg Rosuvastatin Calcium (Crestor) 20 mg PO [facility] Last Admin: 09/23/18 21:22 Dose: 20 mg Tramadol HCl (Ultram) 50 mg PO Q6 PRN PRN Reason: Pain, moderate (4-7) Last Admin: 09/22/18 17:19 Dose: 50 mg Venlafaxine HCl (Effexor Xr) 150 mg PO DAILY [facility] Last Admin: 09/24/18 09:25 Dose: 150 mg Venlafaxine HCl (Effexor Xr) 37.5 mg PO DAILY [facility] Last Admin: 09/24/18 09:25 Dose: 37.5 mg - Labs Labs: 09/24/18 07:26 09/24/18 07:26 PT 14.5 SECONDS (9.7-12.2) H 09/13/18 19:59 INR 1.3 09/13/18 19:59 APTT 32 SECONDS (21-34) 09/13/18 19:59 Assessment and Plan (1) Chest pain Status: Acute (2) Multiple sclerosis Status: Acute (3) Panic disorder Status: Chronic
--- NOTE | 2018-09-24 22:20 | CP.PCM.PN ---
Subjective - Date & Time of Evaluation Date of Evaluation: 09/24/18 Time of Evaluation: 22:20 - Subjective Subjective: AFEBRILE, VSS. c/o some backpain LABS; REVIEWED REPEAT URINE CULTURE 09/20/18-NEGATIVE GROWTH. Objective - Vital Signs/Intake and Output Vital Signs (last 24 hours): Temp Pulse Resp BP Pulse Ox 98.3 F 60 18 132/76 97 09/24/18 16:00 09/24/18 17:04 09/24/18 16:00 09/24/18 17:04 09/24/18 17:04 Intake and Output: 09/24/18 09/25/18 18:59 06:59 Intake Total 520 Balance 520 - Medications Medications: Current Medications Acetaminophen (Tylenol 325mg Tab) 650 mg PO Q6 PRN PRN Reason: pain Last Admin: 09/22/18 17:20 Dose: 650 mg Aspirin (Ecotrin) 81 mg PO DAILY [facility] Last Admin: 09/24/18 09:26 Dose: 81 mg Clonazepam (Klonopin) 0.5 mg PO TID [facility] Last Admin: 09/24/18 17:04 Dose: 0.5 mg Dextrose (Dextrose 50% Inj) 0 ml IV STAT PRN; Protocol PRN Reason: Hypoglycemia Protocol Dextrose (Glutose 15) 0 gm PO ONCE PRN; Protocol PRN Reason: Hypoglycemia Protocol Diphenhydramine HCl (Benadryl) 25 mg PO ONCE PRN PRN Reason: Insomnia Last Admin: 09/21/18 21:20 Dose: 25 mg Ergocalciferol (Drisdol 50,000 Intl Units Cap) 1 cap PO Q7D [facility] Last Admin: 09/14/18 10:57 Dose: 1 cap Ferric Sodium Gluconate Complex (Ferrlecit) 125 mg IVPB DAILY [facility] Stop: 09/26/18 12:46 Last Admin: 09/24/18 09:26 Dose: 125 mg Fluticasone Propionate (Flonase) 1 spr NS DAILY [facility] Last Admin: 09/24/18 09:27 Dose: 1 spr Folic Acid (Folic Acid) 1 mg PO DAILY [facility] Last Admin: 09/24/18 09:26 Dose: 1 mg Glucagon (Glucagen Diagnostic Kit) 0 mg IM STAT PRN; Protocol PRN Reason: Hypoglycemia Protocol Meropenem 500 mg/ Sodium (Chloride) 100 mls @ 100 mls/hr IVPB Q8H [facility]; Protocol Last Admin: 09/24/18 15:50 Dose: 100 mls/hr Insulin Human Regular (Novolin R) 0 unit SC ACHS [facility]; Protocol Last Admin: 09/24/18 21:14 Dose: Not Given Lidocaine (Lidoderm) 1 ea TD DAILY [facility] Last Admin: 09/24/18 09:27 Dose: 1 ea Lorazepam (Ativan) 0.5 mg PO Q6 PRN PRN Reason: Agitation Last Admin: 09/24/18 21:15 Dose: 0.5 mg Metoprolol Tartrate (Lopressor) 25 mg PO BID [facility] Last Admin: 09/24/18 17:04 Dose: 25 mg Mirtazapine (Remeron) 15 mg PO HS [facility] Last Admin: 09/24/18 21:03 Dose: 15 mg Multivitamins (Hexavitamin) 1 tab PO DAILY [facility] Last Admin: 09/24/18 09:26 Dose: 1 tab Nitroglycerin (Nitro-Bid 2% Oint) 1 ea TOP Q6 [facility] Last Admin: 09/24/18 17:04 Dose: 1 ea Ondansetron HCl (Zofran Inj) 4 mg IVP Q8 PRN PRN Reason: Nausea/Vomiting Last Admin: 09/24/18 11:16 Dose: 4 mg Oxycodone/Acetaminophen (Percocet 5/325 Mg Tab) 1 tab PO Q8H PRN PRN Reason: Pain, severe (8-10) Stop: 09/25/18 20:42 Last Admin: 09/24/18 15:57 Dose: 1 tab Pantoprazole Sodium (Protonix Ec Tab) 40 mg PO 0600 [facility] Last Admin: 09/24/18 05:35 Dose: 40 mg Quetiapine Fumarate (Seroquel) 50 mg PO HS [facility] Last Admin: 09/24/18 21:03 Dose: 50 mg Rosuvastatin Calcium (Crestor) 20 mg PO HS [facility] Last Admin: 09/24/18 21:03 Dose: 20 mg Tramadol HCl (Ultram) 50 mg PO Q6 PRN PRN Reason: Pain, moderate (4-7) Last Admin: 09/22/18 17:19 Dose: 50 mg Venlafaxine HCl (Effexor Xr) 150 mg PO DAILY [facility] Last Admin: 09/24/18 09:25 Dose: 150 mg Venlafaxine HCl (Effexor Xr) 37.5 mg PO DAILY [facility] Last Admin: 09/24/18 09:25 Dose: 37.5 mg - Labs Labs: 09/24/18 07:26 09/24/18 07:26 PT 14.5 SECONDS (9.7-12.2) H 09/13/18 19:59 INR 1.3 09/13/18 19:59 APTT 32 SECONDS (21-34) 09/13/18 19:59 - Constitutional Appears: No Acute Distress - Head Exam Head Exam: NORMAL INSPECTION - Eye Exam Eye Exam: EOMI, PERRL - ENT Exam ENT Exam: Normal Oropharynx - Respiratory Exam Respiratory Exam: Clear to Ausculation Bilateral, NORMAL BREATHING PATTERN - Cardiovascular Exam Cardiovascular Exam: REGULAR RHYTHM, +S1, +S2 - GI/Abdominal Exam GI & Abdominal Exam: Soft, Normal Bowel Sounds. absent: Tenderness - Extremities Exam Extremities Exam: Normal Capillary Refill. absent: Calf Tenderness, Pedal Edema - Neurological Exam Neurological Exam: Alert, Awake, CN II-XII Intact, Normal Gait, Oriented x3, Reflexes Normal - Skin Skin Exam: Normal Color, Warm Assessment and Plan (1) UTI (urinary tract infection) Status: Acute (2) Pancytopenia Status: Acute (3) Chest pain Status: Acute (4) Multiple sclerosis Status: Acute (5) Diabetes mellitus Status: Acute (6) Depression Status: Chronic - Assessment and Plan (Free Text) Plan: CONTINUE iv MERREM 500 MG EVERY 8 HOURLY 09/16/18.-day 8 can dc ABX ON DISCHARGE. Repeat urine culture negative so far. PER CONSULTANTS/PMD. ANAEMIA RX PER DR TOBIAS.REMAINS PANCYTOPENIC CASE DISCUSSED WITH THE STAFF/ PMD.
[2018-09-25] MEDS: Oxycodone/Acetaminophen 5/325 mg Tab PO PRN (00:09)
[2018-09-25] MEDS: Pantoprazole 40 mg EC Tab PO SCH (06:02)
[2018-09-25] MEDS: Nitroglycerin 2% Ointment Foilpak UD TOP SCH ×3 (06:02→17:34)
[2018-09-25 07:13] LABS: BASO % 0.7 % (0.0-2.0); EOS # 0.1 K/uL (0.0-0.7); HEMOGLOBIN 10.3 g/dL (11.0-16.0); LYMPH # 1.2 K/uL (1.0-4.3); MEAN CELL VOLUME 92.2 fL (81.0-99.0); MEAN CORPUSCULAR HEMOGLOBIN 29.8 pg (27.0-31.0); MEAN CORPUSCULAR HGB CONC 32.4 g/dL (33.0-37.0); MEAN PLATELET VOLUME 9.4 fL (7.2-11.7); MONO # 0.3 K/uL (0.0-0.8); MONO % 9.3 % (0.0-10.0); NEUT # 1.4 K/uL (1.8-7.0); NRBC % 0.1 % (0.0-2.0); RBC 3.45 Mil/uL (3.80-5.20); RED CELL DISTRIBUTION WIDTH 13.7 % (11.5-14.5)
[2018-09-25] MEDS: (Novolin R) Insulin Human Regular 100 units/ml vial SC SCH ×4 (08:04→17:33)
[2018-09-25] MEDS: Meropenem 500 MG in Sodium Chloride 0.9% 100 ML IVPB SCH ×2 (08:05→17:34)
[2018-09-25 08:28] LABS: ALB/GLOB RATIO 1.2 (1.0-2.1); ALBUMIN 3.3 g/dL (3.5-5.0); ALT/SGPT 24 U/L (9-52); AST/SGOT 42 U/L (14-36); BLOOD UREA NITROGEN 15 mg/dL (7-17); CALCIUM 9.1 mg/dl (8.6-10.4); GFR NON-AFRICAN AMERICAN > 60
[2018-09-25] MEDS: Venlafaxine 37.5 mg ER Cap PO SCH (10:31)
[2018-09-25] MEDS: Multiple Vitamins Tab PO SCH (10:32)
[2018-09-25] MEDS: Venlafaxine 150 mg ER Cap PO SCH (10:33)
[2018-09-25] MEDS: Ferric Sodium Gluconat Complex 62.5 mg/5 ml Vial IVPB SCH (10:34)
[2018-09-25] MEDS: Fluticasone Nasal 50 mcg/Spray NS SCH (10:35)
[2018-09-25] MEDS: Lidocaine 5% Patch TD SCH (10:36)
--- NOTE | 2018-09-25 12:16 | CP.PCM.DIS ---
Provider - Provider Date of Admission: 09/18/18 12:25 Attending physician: Harris Mendez MD Consults: 09/16/18 13:15 Hematology Oncology Consult Routine Comment: Consulting Provider: Francisco Yepez Consulting Physician: Francisco Yepez Reason for Consult: LEUCOPENIA 09/16/18 13:18 Infectious Disease Consult Routine Comment: Consulting Provider: Karina Coe Consulting Physician: Karina Coe Reason for Consult: UTI/LOW WBC 09/16/18 19:25 Psychiatry Consult Routine Comment: depression and hx of bipolar Consulting Provider: Joy Fair Consulting Physician: Joy Fair Reason for Consult: dpression and hx of bipolar 09/22/18 11:29 Case Management Referral Routine Comment: Physician Instructions: Reason For Exam: DEJUAN - [facility] prefereed Reason for Referral: Discharge Planning Time Spent in preparation of Discharge (in minutes): 35 Diagnosis - Discharge Diagnosis (1) Chest pain Status: Acute (2) Multiple sclerosis Status: Acute (3) Panic disorder Status: Chronic Priority: Medium Hospital Course - Lab Results Lab Results: Micro Results 09/20/18 20:19 Urine Random Urine Culture - Final No Growth (<1,000 CFU/ML) 09/16/18 17:42 Blood-Venous Blood Culture - Final NO GROWTH AFTER 5 DAYS 09/16/18 17:42 Blood-Venous Gram Stain - Final TEST NOT PERFORMED 09/16/18 16:40 Blood-Venous Blood Culture - Final NO GROWTH AFTER 5 DAYS 09/16/18 16:40 Blood-Venous Gram Stain - Final TEST NOT PERFORMED 09/15/18 07:14 Urine,Clean Catch Urine Culture - Final Klebsiella Pneumoniae Ssp Pneu Most Recent Lab Values WBC 3.0 K/uL (4.8-10.8) L 09/25/18 07:06 RBC 3.45 Mil/uL (3.80-5.20) L 09/25/18 07:06 Hgb 10.3 g/dL (11.0-16.0) L 09/25/18 07:06 Hct 31.8 % (34.0-47.0) L 09/25/18 07:06 MCV 92.2 fL (81.0-99.0) 09/25/18 07:06 MCH 29.8 pg (27.0-31.0) 09/25/18 07:06 MCHC 32.4 g/dL (33.0-37.0) L 09/25/18 07:06 RDW 13.7 % (11.5-14.5) 09/25/18 07:06 Plt Count 134 K/uL (130-400) 09/25/18 07:06 MPV 9.4 fL (7.2-11.7) 09/25/18 07:06 Neut % (Auto) 46.0 % (50.0-75.0) L 09/25/18 07:06 Lymph % (Auto) 40.0 % (20.0-40.0) 09/25/18 07:06 [place] % (Auto) 9.3 % (0.0-10.0) 09/25/18 07:06 Eos % (Auto) 4.0 % (0.0-4.0) 09/25/18 07:06 Baso % (Auto) 0.7 % (0.0-2.0) 09/25/18 07:06 Neut # (Auto) 1.4 K/uL (1.8-7.0) L 09/25/18 07:06 Lymph # (Auto) 1.2 K/uL (1.0-4.3) 09/25/18 07:06 [place] # (Auto) 0.3 K/uL (0.0-0.8) 09/25/18 07:06 Eos # (Auto) 0.1 K/uL (0.0-0.7) 09/25/18 07:06 Baso # (Auto) 0.0 K/uL (0.0-0.2) 09/25/18 07:06 Differential Comment 09/16/18 08:27 Smear Path Review 09/16/18 08:27 Retic Count 1.0 % (0.5-1.5) 09/18/18 08:43 PT 14.5 SECONDS (9.7-12.2) H 09/13/18 19:59 INR 1.3 09/13/18 19:59 APTT 32 SECONDS (21-34) 09/13/18 19:59 D-Dimer, Quantitative 264 ng/mlDDU (0-243) H 09/13/18 19:59 Sodium 137 mmol/L (132-148) 09/25/18 07:06 Potassium 4.4 mmol/L (3.6-5.2) 09/25/18 07:06 Chloride 102 mmol/L (98-107) 09/25/18 07:06 Carbon Dioxide 29 mmol/L (22-30) 09/25/18 07:06 Anion Gap 10 (10-20) 09/25/18 07:06 BUN 15 mg/dL (7-17) 09/25/18 07:06 Creatinine 0.9 mg/dL (0.7-1.2) 09/25/18 07:06 Est GFR ( Amer) > 60 09/25/18 07:06 Est GFR (Non-Af Amer) > 60 09/25/18 07:06 POC Glucose (mg/dL) 135 mg/dL (65-110) H 09/25/18 11:03 Random Glucose 81 mg/dL (65-105) 09/25/18 07:06 Calcium 9.1 mg/dl (8.6-10.4) 09/25/18 07:06 Ferritin 19.2 ng/mL 09/18/18 08:43 Total Bilirubin 0.3 mg/dL (0.2-1.3) 09/25/18 07:06 AST 42 U/L (14-36) H 09/25/18 07:06 ALT 24 U/L (9-52) 09/25/18 07:06 Alkaline Phosphatase 91 U/L (38-126) 09/25/18 07:06 Total Creatine Kinase 53 U/L (30-135) 09/14/18 06:48 CK-MB (Mass) 0.62 ng/mL (0.0-3.38) 09/14/18 06:48 Troponin I < 0.0120 ng/mL (0.00-0.120) 09/14/18 06:48 NT-Pro-B Natriuret Pep 138 pg/mL (0-900) 09/13/18 19:59 Total Protein 6.1 g/dL (6.3-8.3) L 09/25/18 07:06 Albumin 3.3 g/dL (3.5-5.0) L 09/25/18 07:06 Globulin 2.8 gm/dL (2.2-3.9) 09/25/18 07:06 Albumin/Globulin Ratio 1.2 (1.0-2.1) 09/25/18 07:06 Vitamin B12 409 pg/mL (239-931) 09/18/18 08:43 Folate > 20.0 ng/mL 09/18/18 08:43 Urine Color Yellow (YELLOW) 09/20/18 20:19 Urine Clarity Hazy (Clear) 09/20/18 20:19 Urine pH 5.0 (5.0-8.0) 09/20/18 20:19 Ur Specific [place] 1.020 (1.003-1.030) 09/20/18 20:19 Urine Protein Negative mg/dL (NEGATIVE) 09/20/18 20:19 Urine Glucose (UA) Normal mg/dL (Normal) 09/20/18 20:19 Urine Ketones Negative mg/dL (NEGATIVE) 09/20/18 20:19 Urine Blood Negative (NEGATIVE) 09/20/18 20:19 Urine Nitrate Negative (NEGATIVE) 09/20/18 20:19 Urine Bilirubin Negative (NEGATIVE) 09/20/18 20:19 Urine Urobilinogen Normal mg/dL (0.2-1.0) 09/20/18 20:19 Ur Leukocyte Esterase Trace Richard/uL (Negative) 09/20/18 20:19 Urine WBC (Auto) 4 /hpf (0-5) 09/20/18 20:19 Urine RBC (Auto) < 1 /hpf (0-3) 09/20/18 20:19 Ur Squamous Epith Cells 1 /hpf (0-5) 09/20/18 20:19 Urine Bacteria Occ (<OCC) H 09/20/18 20:19 Stool Occult Blood Negative (NEGATIVE) 09/18/18 17:15 Copper 94 mcg/dL (70-175) 09/18/18 08:43 Zinc 72 mcg/dL (60-130) 09/18/18 08:43 C. difficile Ag & Toxin Negative (NEGATIVE) 09/17/18 22:57 Hepatitis A IgM Ab Negative (NEGATIVE) 09/18/18 08:43 Hep Bs Antigen Negative (NEGATIVE) 09/18/18 08:43 Hep B Core IgM Ab Negative (NEGATIVE) 09/18/18 08:43 Hepatitis C Antibody Negative (NEGATIVE) 09/18/18 08:43 HIV 1&2 Antibody Screen Negative (NEGATIVE) 09/18/18 08:43 Blood Type A POSITIVE 09/13/18 19:59 Antibody Screen Negative 09/13/18 19:59 - Hospital Course Hospital Course: 57 year old female presents with anterior chest pain intermittently for the past 3 days. Patient has Hx of cardiac problem with pace maker and HTN. PT. HAS BEEN ADMITTED MULTIPLE TIMES FOR CP WITH NEG CARDIAC W/U ALSO HAS H/O MS WITH EXACERBATION H/O HTN/DM/HYPERCHOLESTEROL ID EVALUATION , IV AB FOR PNEUMONIA PT IMPROVED ALSO HAD BACK PAIN ON PERCOCET PSYCH EVALUATED AND ADJUSTED MEDS CARDIAC W/U WAS NEG PT D/C F/U IN OFFICE Discharge Exam - Head Exam Head Exam: NORMAL INSPECTION Discharge Plan - Discharge Medications Prescriptions: Cane 1 each MC DAILY #1 each - Follow Up Plan Condition: STABLE Disposition: HOME/ ROUTINE
--- NOTE | 2018-09-25 12:42 | CP.PCM.PN ---
Subjective - Date & Time of Evaluation Date of Evaluation: 09/25/18 Time of Evaluation: 11:20 - Subjective Subjective: pateint seen today denies any chest pain, sob, dizziness , back pain improved with pain medications oob ambulating the hallway vss and labs reviewed - stable d/w Dr. burt cleared for discharge home today and f/u with Dr. Vanessa riggs in [address] Burt can give 30 days supply of all her medications rx given upon discharge Objective - Vital Signs/Intake and Output Vital Signs (last 24 hours): Temp Pulse Resp BP Pulse Ox 98.6 F 60 20 132/76 94 L 09/25/18 07:20 09/25/18 07:20 09/25/18 07:20 09/25/18 10:31 09/25/18 07:20 Intake and Output: 09/25/18 09/25/18 06:59 18:59 Intake Total 400 Balance 400 - Medications Medications: Current Medications Acetaminophen (Tylenol 325mg Tab) 650 mg PO Q6 PRN PRN Reason: pain Last Admin: 09/22/18 17:20 Dose: 650 mg Aspirin (Ecotrin) 81 mg PO DAILY JANIE Last Admin: 09/25/18 10:34 Dose: 81 mg Clonazepam (Klonopin) 0.5 mg PO TID JANIE Last Admin: 09/25/18 10:31 Dose: 0.5 mg Dextrose (Dextrose 50% Inj) 0 ml IV STAT PRN; Protocol PRN Reason: Hypoglycemia Protocol Dextrose (Glutose 15) 0 gm PO ONCE PRN; Protocol PRN Reason: Hypoglycemia Protocol Diphenhydramine HCl (Benadryl) 25 mg PO ONCE PRN PRN Reason: Insomnia Last Admin: 09/21/18 21:20 Dose: 25 mg Ergocalciferol (Drisdol 50,000 Intl Units Cap) 1 cap PO Q7D JANIE Last Admin: 09/14/18 10:57 Dose: 1 cap Ferric Sodium Gluconate Complex (Ferrlecit) 125 mg IVPB DAILY JANIE Stop: 09/26/18 12:46 Last Admin: 09/25/18 10:34 Dose: 125 mg Fluticasone Propionate (Flonase) 1 spr NS DAILY JANIE Last Admin: 09/25/18 10:35 Dose: 1 spr Folic Acid (Folic Acid) 1 mg PO DAILY JANIE Last Admin: 09/25/18 10:33 Dose: 1 mg Glucagon (Glucagen Diagnostic Kit) 0 mg IM STAT PRN; Protocol PRN Reason: Hypoglycemia Protocol Heparin Sodium (Porcine) (Heparin Lock Flush) 300 units IVF ONCE ONE Stop: 09/25/18 12:46 Meropenem 500 mg/ Sodium (Chloride) 100 mls @ 100 mls/hr IVPB Q8H [facility]; Protocol Last Admin: 09/25/18 08:05 Dose: 100 mls/hr Insulin Human Regular (Novolin R) 0 unit SC ACHS [facility]; Protocol Last Admin: 09/25/18 12:16 Dose: Not Given Lidocaine (Lidoderm) 1 ea TD DAILY [facility] Last Admin: 09/25/18 10:36 Dose: Not Given Lorazepam (Ativan) 0.5 mg PO Q6 PRN PRN Reason: Agitation Last Admin: 09/24/18 21:15 Dose: 0.5 mg Metoprolol Tartrate (Lopressor) 25 mg PO BID [facility] Last Admin: 09/25/18 10:31 Dose: 25 mg Mirtazapine (Remeron) 15 mg PO HS [facility] Last Admin: 09/24/18 21:03 Dose: 15 mg Multivitamins (Hexavitamin) 1 tab PO DAILY [facility] Last Admin: 09/25/18 10:32 Dose: 1 tab Nitroglycerin (Nitro-Bid 2% Oint) 1 ea TOP Q6 [facility] Last Admin: 09/25/18 12:14 Dose: 1 ea Ondansetron HCl (Zofran Inj) 4 mg IVP Q8 PRN PRN Reason: Nausea/Vomiting Last Admin: 09/24/18 11:16 Dose: 4 mg Oxycodone/Acetaminophen (Percocet 5/325 Mg Tab) 1 tab PO Q8H PRN PRN Reason: Pain, severe (8-10) Stop: 09/25/18 20:42 Last Admin: 09/25/18 00:09 Dose: 1 tab Pantoprazole Sodium (Protonix Ec Tab) 40 mg PO 0600 [facility] Last Admin: 09/25/18 06:02 Dose: 40 mg Quetiapine Fumarate (Seroquel) 50 mg PO HS [facility] Last Admin: 09/24/18 21:03 Dose: 50 mg Rosuvastatin Calcium (Crestor) 20 mg PO HS [facility] Last Admin: 09/24/18 21:03 Dose: 20 mg Tramadol HCl (Ultram) 50 mg PO Q6 PRN PRN Reason: Pain, moderate (4-7) Last Admin: 09/22/18 17:19 Dose: 50 mg Venlafaxine HCl (Effexor Xr) 150 mg PO DAILY [facility] Last Admin: 09/25/18 10:33 Dose: 150 mg Venlafaxine HCl (Effexor Xr) 37.5 mg PO DAILY [facility] Last Admin: 09/25/18 10:31 Dose: 37.5 mg - Labs Labs: 09/25/18 07:06 09/25/18 07:06 PT 14.5 SECONDS (9.7-12.2) H 09/13/18 19:59 INR 1.3 09/13/18 19:59 APTT 32 SECONDS (21-34) 09/13/18 19:59
[2018-09-25 16:01] VITALS: BP 120/75; PULSE 61; RESP 18; TEMP 98.2; O2SAT 99
--- NOTE | 2018-09-26 22:00 | CP.PCM.PN ---
Subjective - Date & Time of Evaluation Date of Evaluation: 09/24/18 Time of Evaluation: 19:00 - Subjective Subjective: No complaints. Objective - Vital Signs/Intake and Output Vital Signs (last 24 hours): Temp Pulse Resp BP Pulse Ox 98.2 F 61 18 120/75 99 09/25/18 16:00 09/25/18 16:00 09/25/18 16:00 09/25/18 16:00 09/25/18 16:00 - Labs Labs: 09/25/18 07:06 09/25/18 07:06 PT 14.5 SECONDS (9.7-12.2) H 09/13/18 19:59 INR 1.3 09/13/18 19:59 APTT 32 SECONDS (21-34) 09/13/18 19:59 - Head Exam Head Exam: ATRAUMATIC - Eye Exam Eye Exam: Normal appearance - ENT Exam ENT Exam: Mucous Membranes Dry - Respiratory Exam Respiratory Exam: NORMAL BREATHING PATTERN - Cardiovascular Exam Cardiovascular Exam: +S1, +S2 - GI/Abdominal Exam GI & Abdominal Exam: Normal Bowel Sounds Assessment and Plan (1) Pancytopenia Assessment & Plan: borderline iron and b12; on supplementation zinc and copper normal Status: Acute
== END 2018-09-25 18:52 | disposition home or self-care (01) | DRG 313 ==
LOC: C.ER 19:02 → C.6T 09-14 00:40 → OBSVTOIN 09-18 12:25 → C.6T 09-22 14:07
PROVIDERS: ADMIT Internal Medicine Cardiovascular Disease; ATTEND Internal Medicine Cardiovascular Disease
DX: R07.89 Other chest pain (principal); J18.9 Pneumonia, unspecified organism; R45.851 Suicidal ideations; N39.0 Urinary tract infection, site not specified; D61.818 Other pancytopenia; F33.2 Major depressive disorder, recurrent severe without psychotic features; I13.0 Hypertensive heart and chronic kidney disease with heart failure and stage 1 through stage 4 chronic kidney disease, or unspecified chronic kidney disease; F41.0 Panic disorder [episodic paroxysmal anxiety]; G35 Multiple sclerosis; J45.909 Unspecified asthma, uncomplicated; K76.0 Fatty (change of) liver, not elsewhere classified; M79.7 Fibromyalgia; N18.9 Chronic kidney disease, unspecified; I25.10 Atherosclerotic heart disease of native coronary artery without angina pectoris; Z86.73 Personal history of transient ischemic attack (TIA), and cerebral infarction without residual deficits; Z87.891 Personal history of nicotine dependence; Z98.84 Bariatric surgery status; Z95.0 Presence of cardiac pacemaker; E53.8 Deficiency of other specified B group vitamins; E11.22 Type 2 diabetes mellitus with diabetic chronic kidney disease; F31.9 Bipolar disorder, unspecified; I50.9 Heart failure, unspecified; M81.0 Age-related osteoporosis without current pathological fracture